=== PATIENT | female | born 1980 | race Caucasian/White ===

== ENCOUNTER 2017-07-24 16:03 | Emergency (ER) | payer MEDICAID, SELFPAY ==
[2017-07-24 16:05] VITALS: BP 130/80; PULSE 95; PULSE 99; RESP 17; TEMP 37.1; O2SAT 99; BMI 30.8
--- NOTE | 2017-07-24 16:24 | CT_ITS ---
STUDY: CT SOFT TISSUE NECK WITH CONTRAST REASON FOR EXAM: Female, 37 years old. Sore throat RADIATION DOSAGE (If Supplied By Facility): CTDIvol = ( 19.46 ) mGy, DLP = ( 578.38 ) mGycm TECHNIQUE: The patient was scanned in a multi-detector CT scanner. High resolution transaxial imaging was performed following intravenous administration of 100 ml of Isovue 300 contrast material. Sagittal and coronal images were reconstructed. Individualized dose optimization techniques were used for this CT. COMPARISON: None. FINDINGS: There is scarring noted in the lung apices. There is no cervical lymphadenopathy. There is no fluid collection. The parotid glands, submandibular glands and sublingual glands are normal in appearance. The mastoid air cells are clear. The paranasal sinuses are well aerated. The visualized intracranial structures are within normal limits. There are no destructive osseous lesions. CT/Soft Tissue Neck WITH Contrast IMPRESSION: Biapical scarring in the lungs. Unremarkable contrast-enhanced CT of the neck. Electronically Signed: Manolo Xavier, at 17:33 EDT Tel , Service support ,
--- NOTE | 2017-07-24 16:27 | ED.DCSUM_ITS ---
- ER Visit Summary Date of Service: 07/24/17 Chief Complaint: Sore throat History of Present Illness: The patient is a 37 F presenting with sore throat. Patient states this has been ongoing for over a week. She has been to urgent care twice. She states they did a rapid strep both times which were negative. Today they sent her to the ED for further evaluation. She denies fever. She has painful and difficulty swallowing. She states that this has progressively worsened. She denies other complaints. Physical Examination: Vitals are stable. Patient is afebrile. Alert no acute distress. HEENT exam pharyngeal erythema with no exudate, uvula midline Neck is supple. Lungs are clear and equal bilaterally. Heart is regular rate and rhythm. Extremities are unremarkable. Skin is warm and dry. No rash No focal neurologic deficit. Remainder of exam is unremarkable. Emergency Department Course and Treatment: Patient given Decadron, Toradol with improvement. CT soft tissue neck shows unremarkable contrast-enhanced CT of the neck. Patient feels much improved following medication. Advised to continue NSAIDs at home. Advised to follow-up with primary care physician. Advised return to ED for worsening complaints. Disposition: Discharged home Impression: Pharyngitis This note was generated with [facility] dictation software. It may contain incorrect words, spelling, and punctuation that were not noted in review of the chart prior to signing ED Disposition - Plan for ED Patient: Chief Complaint: Sore Throat Referrals: Leonardo Grover MD [Primary Care Provider] -
[2017-07-24] MEDS: Ketorolac 30 MG/ML Syringe IV (16:37)
--- NOTE | 2017-07-24 17:46 | ED.DEP ---
ED Disposition - Plan for ED Patient: Chief Complaint: Sore Throat Instructions: ED Pharyngitis Viral Referrals: Leonardo Grover MD [Primary Care Provider] -
[2017-07-24 18:00] VITALS: BP 129/80; PULSE 64; RESP 18; O2SAT 100
== END 2017-07-24 18:01 | disposition home or self-care (01) ==
LOC: ED 17:37
PROVIDERS: Emergency Provider Emergency Medicine; Family Provider Family Medicine; PCP Family Medicine
DX: J02.9 Acute pharyngitis, unspecified (principal); Z72.0 Tobacco use
CPT/HCPCS: 70491; 96374; 99283; Q9967; A4216

== ENCOUNTER → 2017-11-04 09:36 | Outpatient (CLI) | payer MEDICAID, SELFPAY ==
[2017-11-04 16:03] LABS: Chlamydia Trachomatis by PCR Negative (Negative); Neisserai gonorrhoeae by PCR Negative (Negative); Probe Check PASS; Sample Adequacy Control PASS; Specimen Processing Control PASS
[2017-11-09 15:50] LABS: HPV Reflexed? NOT INDICATED
== END ==
PROVIDERS: Visit Provider Obstetrics & Gynecology
DX: Z12.4 Encounter for screening for malignant neoplasm of cervix (principal); Z12.72 Encounter for screening for malignant neoplasm of vagina; Z11.3 Encounter for screening for infections with a predominantly sexual mode of transmission
CPT/HCPCS: 87491; 87591; 88175; G0145

== ENCOUNTER 2018-05-25 12:43 | Emergency (ER) | payer MEDICAID, SELFPAY ==
[2018-05-25 12:44] VITALS: BP 127/71; PULSE 94; RESP 16; TEMP 36.1; O2SAT 99; BMI 32.1
[2018-05-25 12:53] VITALS: BP 129/97; PULSE 107; RESP 14; O2SAT 95
--- NOTE | 2018-05-25 12:53 | VDLE_ITS ---
Reason For Study: LEG PAIN RIGHT LEFT GSV is normal. CFV is compressible, spontaneous, phasic, CFV is compressible, spontaneous, phasic, competent, and demonstrates normal competent and demonstrates normal augmentation. augmentation. FV is compressible, spontaneous, phasic, competent and demonstrates normal augmentation. POP V is compressible, spontaneous, phasic, competent and demonstrates normal augmentation. T/P Trunk is compressible. PTV is compressible. RT PerV is compressible. Procedure Exam performed portable in ED. A preliminary report was called and/or faxed to Dr. Acevedo. Interpretation Summary Deep veins of the right lower extremity are patent and compressible segmentally. There is no evidence of right lower extremity deep vein thrombosis. Valvular competence appears intact within the proximal deep venous system on the right . The right greater saphenous vein appears patent and compressible segmentally. Ordering Physician: Erich Kaur Referring Physician: MD Davion Groverery Performed By: Christy Chavarria RVT
--- NOTE | 2018-05-25 13:03 | ED.DCSUM_ITS ---
- ER Visit Summary Date of Service: 05/25/18 Chief Complaint: Right calf pain History of Present Illness: The patient is a 37 F who started on oral control pill in April and smoke cigarettes presents with 1 day of right calf cramping. No swelling or redness. No history of DVT. No recent travel or immobilization. No associated shortness of breath or chest pain. Physical Examination: Mild tenderness right calf posteriorly but no swelling. Overlying skin looks normal. Strong distal pulse. No palpable cords. Test Results: Right leg duplex ultrasound negative Emergency Department Course and Treatment: No evidence of DVT. No evidence of infection. Treatment Plan: Follow up as needed Disposition: Home stable Impression: Initial encounter right leg cramp uncertain etiology This note was generated with [employer] dictation software. It may contain incorrect words, spelling, and punctuation that were not noted in review of the chart miley or to signing ED Disposition - Plan for ED Patient: Instructions: ED Muscle Pain Leg Cramps Referrals: Leonardo Grover MD [Primary Care Provider] -
[2018-05-25 14:33] VITALS: PULSE 97; RESP 14; O2SAT 99
== END 2018-05-25 14:33 | disposition home or self-care (01) ==
LOC: ED 13:33
PROVIDERS: Emergency Provider Emergency Medicine; Family Provider Family Medicine; PCP Family Medicine
DX: R25.2 Cramp and spasm (principal); Z72.0 Tobacco use
CPT/HCPCS: 93971; 99282

== ENCOUNTER → 2019-03-06 15:29 | Outpatient (CLI) | payer MEDICAID, SELFPAY | PROVIDERS: Family Provider Family Medicine; PCP Family Medicine; Referring Provider Otolaryngology Otolaryngology/Facial Plastic Surgery; Visit Provider Otolaryngology Otolaryngology/Facial Plastic Surgery | DX: J02.9 Acute pharyngitis, unspecified (principal) | CPT/HCPCS: 87070 ==

== ENCOUNTER → 2021-02-13 12:55 | Outpatient (CLI) | payer MEDICAID, SELFPAY ==
[2021-02-13 13:56] LABS: Hematocrit 42.5 % (37-47); Hemoglobin 14.5 g/dL (12.0-15.0); Mean Corp Hgb Conc 34.1 g/dL (32-36); Mean Corpuscular Hgb 31.3 pg (27.0-32.0); Mean Corpuscular Volume 91.8 fL (81-99); Mean Platelet Vol. 10.2 fl (6.2-12.0); Platelet Count 269 K/mm3 (150-450); RBC Distribution Width CV 12.4 % (11.6-14.6); RBC Distribution Width SD 41.8 fl (35.1-43.9); Red Blood Count 4.63 M/mm3 (4.2-5.4); White Blood Count 8.5 K/mm3 (4.4-11.0)
[2021-02-13 14:38] LABS: Estradiol 189.5 pg/mL; Follicle Stimulating Hormone 6.5 mIU/mL; Luteinizing Hormone 15.4 mIU/mL; Prolactin 7.4 ng/mL
[2021-02-17 22:06] LABS: Chlamydia By Nucleic Acid AMP Negative (Negative)
[2021-02-18 12:04] LABS: Testosterone Free 4.2 pg/mL (0.0-4.2)
[2021-02-18 16:36] LABS: HPV APTIMA, High Risk Negative (Negative)
[2021-02-18 19:22] LABS: 17-Hydroxyprogesterone 58 ng/dL (.)
[2021-02-19 12:10] LABS: Gonococcus By Nucleic Acid AMP Negative (Negative)
== END ==
PROVIDERS: PCP Family Medicine; Visit Provider Obstetrics & Gynecology
DX: N93.9 Abnormal uterine and vaginal bleeding, unspecified (principal); Z12.4 Encounter for screening for malignant neoplasm of cervix; Z11.3 Encounter for screening for infections with a predominantly sexual mode of transmission
CPT/HCPCS: 82627; 82670; 83001; 83002; 83498; 84146; 84402; 84443; 85027; 87491; 87591; 87624; 88175; 82626; G0145

== ENCOUNTER → 2021-03-10 | Outpatient (CLI) | payer MEDICAID, SELFPAY ==
--- NOTE | 2021-03-10 11:30 | EMB_PTH ---
PATIENT: SHIRA BAZAN LOC: [facility] U#:[id number] AGE/SX: 40/F ROOM: RE03/10/[address]: Dr. Eitan Hutchinson MD : 1980 BED: DIS: 03/10/2021 SPEC #: [id number] RECD: 03/10/21 13:22 STATUS: CHRISTINE SENA #: [id number] DARREN: 03/10/21 11:[address]: Eitan Hutchinson DEPT: SURGICAL PATHOLOGY RECD BY: Vivian Johnson ENTERED: 03/10/21 13:39 SP TYPE: ENDOM BX/C JOCELIN DR: Dr. Leonardo Grover MD Tissues: Endometrium, NOS Procedures: Surgery Specimen Level IV HEADER OPERATION: Endometrial biopsy PRE-OP DIAGNOSIS: N39.9 TISSUE SUBMITTED: Endometrium MICROSCOPIC DIAGNOSIS Endometrial biopsy: Proliferative endometrium. See comment. PETER:bridger 03/11/2021 COMMENT Clinical correlation and appropriate follow up are necessary. MICROSCOPIC DESCRIPTION Slides are reviewed. GROSS DESCRIPTION Received in fixative is one container labeled with the patient's name and designated EMB. The specimen consists of multiple irregular fragments of south-pink soft tissue that in aggregate measure 1.5 x 1 x 0.1 cm. The specimen is totally submitted in one cassette. / SJ:bridger 03/10/21 TC:4 CPT: 63324
== END | disposition home or self-care (01) ==
LOC: LABSPEC 13:18
PROVIDERS: PCP Family Medicine; Visit Provider Obstetrics & Gynecology
DX: N39.9 Disorder of urinary system, unspecified (principal)
CPT/HCPCS: 88305

== ENCOUNTER → 2022-05-18 | Outpatient (CLI) | payer MEDICAID, SELFPAY ==
--- NOTE | 2022-05-18 15:09 | BI_ITS ---
MAMMOGRAPHY - BILATERAL SCREENING REASON FOR EXAM: Female, 41 years old. Routine annual screening examination. PERTINENT HISTORY: Non-contributory. TECHNIQUE: Digital bilateral breast rina (3D mammographic acquisition) in the CC and MLO projections. 2-D mediolateral oblique (MLO) and craniocaudad (CC) views of both breasts were obtained. CAD: Full Field Digital Mammography with Computer Added Detection was performed. COMPARISON: Comparison is made with prior abdomen examination dated 12/14/2019. FINDINGS: Breast Composition: There are scattered areas of fibroglandular density. There are no dominant masses or suspicious calcifications. Stable asymmetric breast tissue with more breast tissue is seen in the right breast as compared to the left side. Stable small benign-appearing bilateral axillary lymph nodes. No other significant abnormalities are identified. There has been no significant change since the prior study. BI/SCRN MAMM (CAD)W/RINA BILAT IMPRESSION: Stable bilateral screening mammogram. Yearly follow-up mammogram recommended. (A) ASSESSMENT CATEGORY: BIRADS Category 2: Benign. A letter regarding these results will be sent to the patient by the facility within 30 days. Approximately 10% of breast cancers are not detected by mammography. A normal mammogram should not delay biopsy of a clinically suspicious abnormality. [id number] Electronically Signed: Colin Jeronimo MD at 15:52 EST ,
== END | disposition home or self-care (01) ==
LOC: OPBI 15:08
PROVIDERS: PCP Family Medicine; Visit Provider Obstetrics & Gynecology
DX: Z12.31 Encounter for screening mammogram for malignant neoplasm of breast (principal)
CPT/HCPCS: 77063; 77067

== ENCOUNTER 2024-09-10 11:35 | Emergency (ER) | payer SELFPAY ==
[2024-09-10 11:36] VITALS: BP 133/101; PULSE 86; RESP 17; TEMP 36.2; O2SAT 99; BMI 32.4
--- NOTE | 2024-09-10 12:42 | EX.ED.UPPERE ---
HPI <IVA Galaviz - Last Filed: 09/10/24 13:13> History of Present Illness Chief Complaint: Upper Extremity Injury Narrative Narrative: Patient presenting today with pain to her right thumb that she has had over the last several days. She reports that she developed a discoloration vertically through the middle of her nail which concerned her, she went to urgent care yesterday and was placed on a course of doxycycline. She reports that she was continue to have pain/pressure to her fingernail prompting her to come in for evaluation. She denies any fevers or chills, she reports that she feels well otherwise. [facility] <IVA Galaviz - Last Filed: 09/10/24 13:13> [facility] Medical History no medical history Home Medications ?Medication ?Instructions ?Recorded ?Last Taken ?Type Control 1 tab PO DAILY 05/25/18 05/25/18 History Allergy/AdvReac Type Severity Reaction Status Date / Time No Known Allergies Allergy Verified 09/10/24 11:36 Family History no significant family his Surgical History no surgical history Social History Smoking Status: Current every day smoker tobacco type: cigarettes ROS <IVA Galaviz - Last Filed: 09/10/24 13:13> ROS ED Constitutional Constitutional ED: Denies chills or fever(s) Cardiovascular Cardiovascular: Denies chest pain Respiratory/Chest Respiratory/Chest: Denies dyspnea Gastrointestinal Gastrointestinal: Denies abdominal pain, nausea or vomiting Musculoskeletal Musculoskeletal: Reports other Details: Right thumb pain Integumentary Denies Abrasions or rash Neurologic Neurologic: Denies weakness EXAM <IVA Galaviz Last Filed: 09/10/24 13:13> Physical Exam Const Vital Signs: 09/10/24 11:36 Temperature 97.1 F L Temperature Source Temporal Pulse Rate 86 Respiratory Rate 17 Blood Pressure 133/101 H Blood Pressure Mean 111 Pulse Ox 99 Oxygen Delivery Method Room Air Positive well nourished, well developed and no apparent distress General Appearance ED: well developed HEENT Reports normocephalic and head/scalp atraumatic Mouth ED: Yes moist mucous membranes normal Eyes PERRL and EOMs intact bilaterally Neck full ROM and supple Chest Wall inspection of chest normal Resp normal respiratory effort and clear to auscultation bilaterally Cardio regular rate and regular rhythm Back/Spine normal ROM Extremity full ROM Extremity Narrative: Right thumb nail with a vertical discoloration, the nail is tender to palpation, no surrounding erythema to the fingernail, she has full range of motion to her thumb, no warmth or discharge. Right upper extremity neurovascularly intact. Neuro moves all extremities, no focal motor deficits and no sensory deficits noted Sensorium / Orientation: awake and alert Psych mental status grossly normal and thought process normal Skin no rashes or lesions noted and no wounds [facility] <IVA Galaviz - Last Filed: 09/10/24 13:13> [facility] Narrative Medical decision making narrative: Patient presenting today due to pain/pressure to her right thumb fingernail that has been ongoing over the last several days. She noticed a vertical discoloration through her nail a few days ago, she went to urgent care Wednesday and was placed on doxycycline. The pressure has worsened, prompting her to come in to be seen. She does not have any erythema surrounding her fingernail to suggest an obvious paronychia, she does have a vertical discoloration that is light in color. I did trephinate her fingernail in 2 places along with discoloration with an 18-gauge needle after cleansing the fingernail with alcohol, purulent discharge was expelled. I suspect she had a early paronychia. 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 I recommended that she no longer submerge her thumb in any dirty water and wear gloves. I also recommended that she begin warm water soaks to her thumb several times daily over the next several days, she can continue her antibiotics, recommended she follow-up closely with her PCP. Return instructions discussed and patient discharged home in stable condition. <Dr. Esperanza Gu DO - Last Filed: 09/13/24 16:09> [facility] Narrative Medical decision making narrative: Patient presenting today due to pain/pressure to her right thumb fingernail that has been ongoing over the last several days. She noticed a vertical discoloration through her nail a few days ago, she went to urgent care Wednesday and was placed on doxycycline. The pressure has worsened, prompting her to come in to be seen. She does not have any erythema surrounding her fingernail to suggest an obvious paronychia, she does have a vertical discoloration that is light in color. I did trephinate her fingernail in 2 places along with discoloration with an 18-gauge needle after cleansing the fingernail with alcohol, purulent discharge was expelled. I suspect she had a early paronychia. 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 I recommended that she no longer submerge her thumb in any dirty water and wear gloves. I also recommended that she begin warm water soaks to her thumb several times daily over the next several days, she can continue her antibiotics, recommended she follow-up closely with her PCP. Return instructions discussed and patient discharged home in stable condition. I have personally performed a face to face assessment of the patient and have reviewed the MARK Note. I performed a substantive portion of the visit including all aspects of the following. My moses findings include: History is patient is a 44-year-old female presenting with worsening atraumatic right fingernail pain over her thumb. She has discoloration that runs the length of her finger nail in the middle. She was seen at urgent care and started on doxycycline. She started to have more pain at the base of her nail and closer to our interphalangeal joint now. Range of motion is preserved but is very become painful. 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 Denies any systemic symptoms including fever or chills. States she is otherwise feeling well. Describes the pain more as throbbing and pressure. On exam patient has normal range of motion of the thumb. No erythema or pain at the joint. There is some very minor erythema at the base of the nail. There is mild white discoloration at the proximal nail and vertical stripe riding distally through the middle of the nail. Suspect she has paronychia with more of the purulence underneath the nail instead of in the nail fold. At this time I do not think she needs to have the nail removed. I do not think x-ray is indicated as she is not any trauma. Fingernail is trephinated with purulent discharge expelled. Patient has improvement of symptoms. Counseled on continued warm soaks to the fingernail. Will continue antibiotics. Hopeful that now that she has had source control with a trephination it will heal with antibiotics and soaks as well. Given return precautions. Discharged home in stable condition. Other additions or changes: [None] Discharge Plan Triage Chief Complaint: Upper Extremity Injury ED Midlevel Provider: Janis Jaffe ED Provider: Esperanza Gu Dx/Rx/DC Orders Clinical Impression: Paronychia Instructions: ED Paronychia of the Finger or Toe Prescriptions: No Action Control 1 tab PO DAILY Primary Care Provider: Noah Torres Referrals: Noah Torres MD [Primary Care Provider] - 5-7 Days Activity Restrictions/Additional Instructions: Return for any worsening symptoms, soak your thumb multiple times daily in warm water. Print Language: Wolof Disposition Disposition: Home, Self Care Discharge Date/Time: 09/10/24 13:32
[2024-09-10 13:31] VITALS: BP 117/82; PULSE 79; RESP 16; TEMP 36.2; O2SAT 100
== END 2024-09-10 13:32 | disposition home or self-care (01) ==
PROVIDERS: Emergency Provider Emergency Medicine; PCP Family Medicine; Visit Provider Emergency Medicine
DX: L03.011 Cellulitis of right finger (principal); F17.290 Nicotine dependence, other tobacco product, uncomplicated
CPT/HCPCS: 10060; 99282; A4216

== ENCOUNTER 2024-09-14 04:38 | Emergency (ER) | payer SELFPAY ==
[2024-09-14 04:39] VITALS: BP 137/86; PULSE 84; RESP 16; TEMP 36.8; O2SAT 100; BMI 32.9
[2024-09-14 04:42] VITALS: BP 137/86; PULSE 85; RESP 16; TEMP 36.8; O2SAT 100
[2024-09-14] MEDS: oxyCODONE 5 MG Tablet PO (05:07)
[2024-09-14] MEDS: Clindamycin HCl 150 MG Capsule 300 MG PO (05:07)
--- NOTE | 2024-09-14 05:10 | RAD_ITS ---
PROCEDURE: HAND MIN 3 VIEWS 09/14/2024 REASON FOR EXAM: ? OSTEOMYELITIS OF THUMB TECHNIQUE: 3 view(s) of the right hand COMPARISON: None available FINDINGS: No fracture or dislocation. The joint spaces appear within limits. No osseous destruction, sclerosis or periosteal reaction identified. No radiopaque foreign body seen. The soft tissues appear within limits. RAD/Hand Min 3 Views IMPRESSION: Study appears within limits. Reading Location: [id number]
--- NOTE | 2024-09-14 05:21 | EDS_ITS ---
HPI History of Present Illness Chief Complaint: Other, Pain/Inj Informant: patient Narrative Narrative: Patient is a 44-year-old female who reports no significant past medical history. She states that she was having pain in her right thumb for almost 2 weeks with no known injury. She states then she noticed a line underneath her nail that appeared pus-like. With concern for an infection causing her pain she presented to the ER. At that time she underwent needle decompression and was placed on doxycycline. She states she was initially doing better but over the last few days despite taking her antibiotics she is now has redness and swelling to the thumb. She states there has been no repeat injury. She denies any fevers or chills or history of immunosuppression. She states she had blood work done by her family doctor just yesterday. She states that despite using antibiotics the fact that she is having worsening pain and redness she is concerned for persistent infection and therefore comes in for evaluation [facility] Home Medications ?Medication ?Instructions ?Recorded ?Last Taken ?Type Control 1 tab PO DAILY 05/25/18 02/0 10/05 History clindamycin HCl 300 mg capsule 300 mg PO 4X/DAY 10 day s #40 09/14/24 Unknown Rx (Cleocin HCl) CAPSULES doxycycline hyclate 100 mg tablet 100 mg PO BID Unknown History oxycodone-acetaminophen 5 mg-325 1 tab PO Q6H PRN pain 3 days #12 09/14/24 Unknown Rx mg tablet (Percocet) tabs Allergy/AdvReac Type Severity Reaction Status Date / Time No Known Allergies Allergy Verified 09/14/24 04:39 Family History no significant family his Surgical History Hx of cholecystectomy Social History Smoking Status: Current every day smoker tobacco type: cigarettes ROS ROS ED Constitutional Constitutional ED: Denies chills or fever(s) ENT ENT ED: Denies sore throat Cardiovascular Cardiovascular: Denies chest pain Respiratory/Chest Respiratory/Chest: Denies cough or dyspnea Gastrointestinal Gastrointestinal: Denies abdominal pain, diarrhea, nausea or vomiting Genitourinary Genitourinary ED: Denies dysuria Musculoskeletal Musculoskeletal: Reports other Details: Positive right thumb pain/swelling Integumentary Reports other Details: Positive redness right thumb Neurologic Neurologic: Denies headache(s) Hematologic/Lymphatic Hematologic/Lymphatic: Denies easy bleeding or easy bruising EXAM Physical Exam Const Vital Signs: 09/14/24 04:39 09/14/24 04:39 09/14/24 04:42 Temperature 98.3 F 98.3 F Temperature Source Oral Oral Pulse Rate 84 85 Respiratory Rate 16 16 Respiratory Effort Normal Respiratory Pattern Normal Blood Pressure 137/86 H 137/86 H Blood Pressure Mean 103 103 Pulse Ox 100 100 Oxygen Delivery Method Room Air Room Air 09/14/24 05:25 Temperature 98.3 F Temperature Source Pulse Rate 85 Respiratory Rate 16 Respiratory Effort Respiratory Pattern Blood Pressure 126/84 H Blood Pressure Mean 98 Pulse Ox 98 Oxygen Delivery Method Positive well nourished and well developed General Appearance ED: well developed HEENT HEENT Narrative: Normocephalic atraumatic Eyes PERRL and EOMs intact bilaterally General Eye ED: Negative for scleral icterus Neck supple Resp normal respiratory effort and clear to auscultation bilaterally Cardio regular rate and regular rhythm Extremity Extremity Narrative: Right upper extremity is neurovascularly intact; AIN/PIN are intact and normal Patient has 2 trephination holes in the right thumb nail consistent with previous history of decompression. There is no remaining purulent material or subungual hematoma. The distal phalanx of the right thumb is slightly swollen compared to the left with asymmetric erythema and warmth. However there is no lymphangitic streaking. No Knievel signs to indicate infectious tenosynovitis. The finger pad is soft and compressible going against felon. No crepitance palpated Remainder of the exam is normal Neuro oriented x3, CN's II-XII intact bilaterally and no sensory deficits noted Sensorium / Orientation: alert Motor Exam: strength 5/5 throughout Psych mental status grossly normal Skin Skin Narrative: Soft tissue changes to the right thumb as documented above MDM MDM MDM Narrative Medical decision making narrative: Patient arrived to the ER with stable vitals. She reported increasing redness and pain to the right thumb without any repeat trauma and states she has been taking her antibiotics as directed. There is concern for secondary infection such as cellulitis versus felon versus osteomyelitis. I discussed with patient obtaining laboratory values to check for signs of systemic infection. However she had blood work done just the other day and I was able to review this on her MyChart. Her white count is only slightly elevated at 11.59 and her absolute neutrophil count is only slightly elevated at 8.1. These were not clinically significant elevations. By exam there is no diffuse swelling or tautness of the finger pad going against a felon. In order to rule out a potential retained foreign body or osteomyelitis an x-ray was obtained. This revealed no acute findings. Based on her history and exam I do feel that she is developing a secondary cellulitis that is most likely resistant to the doxycycline she is currently on. Therefore the doxycycline will be discontinued and patient will be transition to clindamycin. At this time however as her vitals are stable her x-ray does not reveal foreign body or signs of osteomyelitis or free air and her recent outpatient laboratory study did not reveal any clinically significant changes I do not believe there is need for further workup in the ER at this time. This plan of care was discussed with the patient who is agreeable to it and therefore should be discharged for continued evaluation as an outpatient History & Record Review Discussion w/independent historian: Patient Radiography Diagnostic Testing: Clinical Impression(s) from Imaging Studies Hand X-Ray 09/14/24 05:10 IMPRESSION: Study appears within limits. Reading Location: [facility] Right hand x-ray as interpreted by the emergency medicine physician reveals no acute fracture dislocation retained foreign body or signs of osteomyelitis Discharge Plan Triage Chief Complaint: Other, Pain/Inj ED Provider: Asad Paz Dx/Rx/DC Orders Clinical Impression: Paronychia, Cellulitis of right thumb Instructions: ED Cellulitis, ED Paronychia of the Finger or Toe Prescriptions: New oxycodone-acetaminophen [Percocet] 5-325 mg tablet 1 tab PO Q6H PRN (Reason: pain) 3 Days Qty: 12 0RF clindamycin HCl [Cleocin HCl] 300 mg capsule 300 mg PO 4X/DAY 10 Days Qty: 40 0RF No Action Control 1 tab PO DAILY doxycycline hyclate 100 mg tablet 100 mg PO BID Primary Care Provider: Noah Torres Referrals: Noah Torres MD [Primary Care Provider] - Activity Restrictions/Additional Instructions: Your x-ray does not show any signs of bone infection and your exam indicates you now have cellulitis which is a soft tissue skin infection and this is most likely because the bacteria is resistant to the doxycycline. Therefore please stop the doxycycline and begin taking the clindamycin. Will typically take 2 to 3 days to notice symptom improvement. If you spike a fever or notice streaking down the hand towards the arm or have any further concerns please return to the ER for repeat evaluation Print Language: Maori Disposition Disposition: Home, Self Care Discharge Date/Time: 09/14/24 05:29
[2024-09-14 05:25] VITALS: BP 126/84; PULSE 85; RESP 16; TEMP 36.8; O2SAT 98
== END 2024-09-14 05:29 | disposition home or self-care (01) ==
PROVIDERS: Emergency Provider Emergency Medicine; PCP Family Medicine; Visit Provider Emergency Medicine
DX: L03.011 Cellulitis of right finger (principal); F17.210 Nicotine dependence, cigarettes, uncomplicated; Z16.29 Resistance to other single specified antibiotic; Z98.890 Other specified postprocedural states
CPT/HCPCS: 73130; 99283

== ENCOUNTER 2025-03-31 13:32 | Emergency (ER) | payer SELFPAY ==
[2025-03-31 13:33] VITALS: BP 121/86; PULSE 86; RESP 16; TEMP 36.6; O2SAT 99; BMI 32.1
--- NOTE | 2025-03-31 13:45 | EX.ED.DYSGE1 ---
HPI History of Present Illness Chief Complaint: Dental PFSH PFS Home Medications ?Medication ?Instructions ?Recorded ?Last Taken ?Type Control 1 tab PO DAILY 05/25/18 05/25/18 History clindamycin HCl 300 mg capsule 300 mg PO 4X/DAY 10 days #40 09/14/24 Unknown Rx (Cleocin HCl) CAPSULES doxycycline hyclate 100 mg tablet 100 mg PO BID 09/14/24 Unknown History oxycodone-acetaminophen 5 mg-325 1 tab PO Q6H PRN pain 3 days #12 09/14/24 Unknown Rx mg tablet (Percocet) tabs Allergy/AdvReac Type Severity Reaction Status Date / Time No Known Allergies Allergy Verified 03/31/25 13:33 Surgical History Hx of cholecystectomy Social History Smoking Status: Current every day smoker tobacco type: cigarettes EXAM Physical Exam Const Vital Signs: 03/31/25 13:33 Temperature 97.8 F Temperature Source Oral Pulse Rate 86 Respiratory Rate 16 Blood Pressure 121/86 H Blood Pressure Mean 97 Pulse Ox 99 Oxygen Delivery Method Room Air [facility] MDM Narrative Medical decision making narrative: HISTORY OF PRESENT ILLNESS: 44-year-old female presents with right-sided dental pain. Started 1 month ago. No she is on amoxicillin approximately 1 week ago. She notes symptoms did not get better. Denies trouble swallowing, change in vision, numbness weakness or fullness in her submandibular area. REVIEW OF SYSTEMS: Pertinent positives: Dental pain Pertinent negatives: Fever, loss of vision, double vision, slurred speech, difficulty swallowing PHYSICAL EXAM: Nursing triage notes reviewed, Vital signs reviewed Constitutional: please see mdm HENT: MMM, no evidence of dental abscess, no submandibular edema or induration, no tonsillar exudates or erythema, uvula midline, patient was controlling secretions, no drooling, no trimus, no dysphonia Eyes: Pupils equal round and reactive to light, Extraocular muscles intact Neck: No stridor, no JVD, full neck ROM Lungs: Clear to auscultation, No wheezing or rales. No increased work of breathing, no conversational dyspnea, no accessory muscle use, no nasal flaring. No respiratory distress noted Heart: Regular rate and rhythm, No murmurs, No rubs and No gallops, 2+ distal pulses (radial, femoral, posterior tibial) in all extremities MEDICAL DECISION MAKING: Chief Complaint: Dental pain External records reviewed: Reviewed prior ED visits Factors affecting care: None Social determinants of health: None [facility] Narrative: The patient was hemodynamically stable, afebrile, nontoxic-appearing. Exam consistent with dental caries. 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 I considered the following differential diagnosis: Dental abscess, ANUG, Ludewig's angina, RPA, LICENSED PSYCHOLOGIST DIRECTOR, dental caries, gingivitis Gave clindamycin here. In for home-going. Given dentistry follow-up recommended. Dental resources provided Shared decision making: I will have a discussion with the patient and or visitors regarding risk/benefits of further testing or admission. They will be made aware of of the risk/benefits inherent in this decision they will be given the opportunity to voice understanding. Impression: 1. Acute dental pain 2. Dental care Disposition: Discharge This note was generated with [employer] dictation software. It may contain incorrect words, spelling, and punctuation that were not noted in review of the chart prior to signing. Discharge Plan Triage Chief Complaint: Dental ED Provider: Dannie Garcia Dx/Rx/DC Orders Prescriptions: No Action Control 1 tab PO DAILY doxycycline hyclate 100 mg tablet 100 mg PO BID oxycodone-acetaminophen [Percocet] 5-325 mg tablet 1 tab PO Q6H PRN (Reason: pain) 3 Days Qty: 12 0RF clindamycin HCl [Cleocin HCl] 300 mg capsule 300 mg PO 4X/DAY 10 Days Qty: 40 0RF Primary Care Provider: Noah Torres Referrals: Noah Torres MD [Primary Care Provider, Family Practice] Print Language: Occitan
--- OUTSIDE RECORDS SUMMARY | 2025-03-31 13:58 | XMS RPT_ITS | CCD ---
Author Organization [facility] ion Partnership [facility] Care Team Providers Care Senior Automation Engineer Name Role Phone Stephanie Flores LPN Unavailable Unavailable Urbano ENRIQUE, Fabian Mark Unavailable Mercy Torres MD Primary Care Provider Mercy Torres MD Primary Care Provider Mercy Torres MD Primary Care Provider Mercy Torres MD Primary Care Provider Mercy Torres MD Primary Care Provider Podlogar INSURANCE COUNSELOR.Omaira FERRELL Unavailable Dr. Noah Torres MD Primary Care Provider Dr. Esperanza Gu DO Emergency Provider Dr. Esperanza Gu DO Attending Provider Dr. Asad Paz DO Emergency Provider Asad Paz Attending Unavailable Noah Torres Primary Care Unavailable Noah Torres Primary Care Unavailable Esperanza Gu Attending Unavailable Niranjan INSURANCE COUNSELOR.Mare FERRELL Unavailable [facility] T[facility]RES Primary Care Unavailab le SELF Referring Unavailable ISSA CHAPIN Attending Unavailable ESTER GRAY Attending Unavail able [facility] T[facility]RES Primary Care Unavailab le [facility] TORRES Primary Care Unavailab NEEMA Morton Attending Unavailable GISEL KELLER Referring Unavailable [facility] TORRES Primary Care Unavailab le MERCY TORRES Primary Care Unavailab NEEMA Morton Attending Unavailable MERCY TORRES Primary Care Unavailab MERCY Guy Primary Care Unavailab NEEMA Morton Attending Unavailable MER[facility] TORRES Primary Care Unavailab QIANA Conrad Referring Unavailable [facility] TORRES Primary Care Unavailab GISEL Umaña Attending Unavailable SELF Referring Unavailable MER[facility] TORRES Primary Care Unavailab MERCY Guy Attending Unavailab MERCY Guy Primary Care Unavailab MERCY Guy Referring Unavailab le SELF Referring Unavailable MERCY TORRES Primary Care Unavailab ESSENCE Acuna Attending Unavailable MERCY TORRES Primary Care Unavailab MERCY Guy Attending Unavailab MERCY Guy Primary Care Unavailab ESSENCE Acuna Attending Unavailable Medications Current Medications Medication Drug Class(es) Dates Sig (Normalized) Sig (Original) acetaminophen 325 mg oral capsule (18 sources) End: 09-13-2024 acetaminophen 325 mg cap Take by mouth. 09/13/2024 Discontinued (Course of therapy completed) Comment on above: Take by mouth. acetaminophen 325 mg / oxyCODONE hydrochloride 5 mg oral tablet (1 source) Opioid Agonist Start: 09-14-2024 take 1 tablet by mouth every six hours as needed for pain Oxycodone-Acetamino phen (Percocet) 5-325 mg tablet Active 1 {tbl} PO EVERY 6 HOURS as needed for pain 12 September 14, 2024 Start: 09-14-2024 take 1 tablet by song th every six hours as needed for pain Oxycodone-Acetaminophen (Percocet) 5-325 mg tablet Active 1 {tbl} PO EVERY 6 HOURS as needed for pain 12 September 14, 2024 Control (3 sources) Start: 05-25-2018 Control Active 1 {tbl} PO DAILY May 25, 2018 1:00am Start: 05-25-2018 take 1 tablet by mouth once da oscar Control Active 1 TABLET PO DAILY May 25, 2018 12:00am clindamycin 300 mg oral capsule (3 sources) Lincosamide Antibacterial Start: 09-14-2024 End: 09-25-2024 take 1 capsule by mouth four times daily Clindamycin Hcl (Cleocin Hcl) 300 mg capsule Active 300 mg PO 4 TIMES DAILY 40 September 14, 2024 12:00am doxycycline hyclate 100 mg oral capsule (10 sources) Tetracycline-class Drug Start: 09-13-2024 End: 09-16-2024 take 1 capsule by mouth twice daily doxycycline hyclate (VIBRAMYCIN) 100 mg capsule Take 1 capsule by mouth two times a day for 3 days. 6 capsule 09/13/2024 09/16/2024 Active Start: 09-08-2024 End: 09-15-2024 take 1 tablet by mouth twice daily doxycycline (VIBRA-TABS) 100 mg tablet Indications: Nail discoloration Take 1 tablet by mouth two times a day for 7 days. 14 tablet 09/08/2024 09/15/2024 Active Start: 04-10-2024 End: 04-17-2024 take 1 tablet by mouth twice daily doxycycline (VIBRA-TABS) 100 mg tablet Indications: Skin infection Take 1 tablet by mouth two times a day for 7 days. 14 tablet 04/10/2024 04/17/2024 fluticasone propionate 0.05 mg/actuat metered dose nasal spray (14 sources) Corticosteroid Start: 06-17-2023 End: 09-13-2024 take 2 spray(s) by mouth once daily fluticasone (FLONASE) 50 mcg/actuation nasal spray Indications: Acute cough Use 2 Sprays in each nostril once daily. Rinse mouth after use. 1 Each 06/17/2023 09/13/2024 Discontinued (Course of therapy completed) Start: 07-17-2019 End: 03-16-2022 take 2 spray(s) by mouth once daily fluticasone (FLONASE) 50 mcg/actuation nasal spray Indications: Acute non-recurrent sinusitis, unspecified location Use 2 Sprays in each nostril once daily. Rinse mouth after use. 1 Bottle 1 07/17/2019 03/16/2022 Discontinued Comment on above: Use 2 Sprays in each nostril once daily. Rinse mouth after use. MULTIVITAMIN ORAL (12 sources) MULTIVITAMIN ORA L Take by mouth once daily. Active MULTIVITAMIN ORA L Take by mouth. Active predniSONE 20 mg oral tablet (1 source) Start: 06-17-2023 End: 06-22-2023 take 2 tablets by mouth once daily predniSONE (DELTASONE) 20 mg tablet Indications: Acute cough Take 2 tablets by mouth once daily for 5 days. 10 tablet 0 06/17/2023 06/22/2023 Active Comment on above: Take 2 tablets by mo [facility] once daily for 5 days. Completed/Discontinued Medications Medication Drug Class(es) Dates Sig (Normalized) Sig (Original) acetaminophen 325 mg / HYDROcodone bitartrate 5 mg oral tablet (3 sources) Opioid Agonist Start: 07-10-2014 End: 07-13-2014 Hydrocodone-Acetami nophen 1 TABLET tablet Discontinued 1 - 2 {tbl} PO EVERY 4 HOURS NEEDED as needed for Pain July 10, 2014 12:00am July 13, 2014 10:35am Start: 07-10-2014 End: 07-13-2014 take 1 tablet by mouth every four hours as needed Hydrocodone-Acetaminophen Discontinued 1 - 2 TABLET PO EVERY 4 HOURS NEEDED July 09, 2014 11:00pm July 13, 2014 9:35am 5 ml bupivacaine hydrochloride 5 mg/ml injection (1 source) Amide Local Anesthetic Start: 12-03-2021 End: 12-03-2021 bupivacaine (PF) 0.5 % (5 mg/mL) 2.5 mg injection Start: 12-03-2021 End: 12-03-2021 bupivacaine (PF) 0.5 % (5 mg /mL) 2.5 mg injection 1 ml dexamethasone phosphate 4 mg/ml injection (1 source) Corticosteroid Start: 12-03-2021 End: 12-03-2021 dexAMETHasone sodium phosphate 2 mg injection (DECADRON) Start: 12-03-2021 End: 12-03-2021 dexAMETHasone sodium phospha te 2 mg injection (DECADRON) norethindrone 0.35 mg oral tablet (14 sources) Start: 06-09-2021 End: 02-08-2024 take 1 tablet by mouth once daily DEBLITANE 0.35 mg tablet Take 1 tablet by mouth once daily. 84 tablet 3 03/09/2023 01/31/2024 Discontinued Comment on above: Take 1 tablet by [facility] once daily. sulfamethoxazole 800 mg / trimethoprim 160 mg oral tablet (3 sources) Dihydrofolate Reductase Inhibitor Antibacterial, Sulfonamide Antimicrobial Start: 06-10-2023 End: 06-17-2023 take 1 tablet by mouth twice daily sulfamethoxazole-t rimethoprim (BACTRIM DS) 800-160 mg per tablet Indications: Skin infection Take 1 tablet by mouth two times a day for 7 days. 14 tablet 06/10/2023 06/17/2023 Comment on above: Take 1 tablet by song two times a day for 7 days. triamcinolone acetonide 10 mg/ml injectable suspension (1 source) Corticosteroid Start: 12-03-2021 End: 12-03-2021 triamcinolone acetonide 5 mg injection (KeNALog 10) Start: 12-03-2021 End: 12-03-2021 triamcinolone acetonide 5 mg injection (KeNALog 10) varenicline 0.5 mg oral tablet (5 sources) Partial Cholinergic Nicotinic Agonist Start: 06-20-2019 End: 03-16-2022 take 1 tablet by mouth once daily, then take 1 tablet by mouth twice daily, then take 1 tablet by mouth twice daily varenicline (CHANTIX STARTING MONTH BOX) 0.5 mg (11)- 1 mg (42) tablet Indications: Tobacco abuse counseling Take 1 tablet (0.5 mg) by mouth once daily for 3 days, then 1 tablet (0.5 mg) twice daily for 4 days, then one tablet (1 mg) twice daily. 53 tablet 0 06/20/2019 03/16/2022 Discontinued Comment on above: Take 1 tablet (0.5 m g) by mouth once daily for 3 days, then 1 tablet (0.5 mg) twice daily for 4 days, then one tablet (1 mg) twice daily. Problems Active Problems Problem Classification Problem Date Documented Da te Episodic/Chronic Immunizations and screening for infectious disease (1 source) Contact with or exposure to other viral diseases; Translations: [Exposure to confirmed case of COVID-19] Episodic Influenza (1 source) Influenza-like illness; Translations: [Influenza due to unidentified influenza virus with other respiratory manifestations] Episodic Other aftercare (1 source) Admission statuses; Translations: [Encounter for other specified aftercare] 10-25-2024 Episodic Other connective tissue disease (1 source) Plantar fasciitis; Translations: [Plantar fascial fibromatosis] Episodic Other connective tissue disease (1 source) Pain in right finger(s); Translations: [Pain in right finger(s)] Onset: 09-13-2024 Episodic Other lower respiratory disease (1 source) Cough; Translations: [Acute cough] 06-17-2023 Episodic Other nutritional; endocrine; and metabolic disorders (19 sources) Obese class I; Translations: [Obesity, unspecified] Onset: 04-02-2023 04-02-2023 Chronic Other screening for suspected conditions (not mental disorders or infectious disease) (11 sources) Patient encounter status; Translations: [Encounter for screening mammogram for malignant neoplasm of breast] Onset: 09-07-2024 Episodic Other skin disorders (1 source) Cyst of skin; Translations: [Follicular cyst of the skin and subcutaneous tissue, unspecified] 05-29-2024 Episodic Other upper respiratory infections (1 source) Acute upper respiratory infection; Translations: [Acute upper respiratory infection, unspecified] 06-17-2023 Episodic Unclassified (2 sources) Physical examination; Translations: [Encounter for general adult medical examination without abnormal findings] Onset: 03-05-2010 03-05-2010 Unclassified (1 source) Patient encounter status 09-13-2024 Unclassified (1 source) Obesity, Class I, BMI 30-34.9; Translations: [Obesity, Class I, BMI 30-34.9] Onset: 04-02-2023 Viral infection (2 sources) Viral disease; Translations: [Viral infection, unspecified] Episodic Past or Other Problems Problem Classification Problem Date Documented Da te Episodic/Chronic Mycoses (2 sources) Onychomycosis; Translations: [Tinea unguium] Onset: 09-13-2024 09-13-2024 Episodic Nonmalignant breast conditions (8 sources) Abscess of breast; Translations: [Abscess of the breast and nipple] Onset: 09-13-2024 09-13-2024 Episodic Other aftercare (1 source) Encounter for other specified aftercare; Translations: [Wound check, abscess] Onset: 10-25-2024 Episodic Other skin disorders (1 source) Other nail disorders; Translations: [Nail discoloration] Onset: 09-08-2024 Episodic Other skin disorders (1 source) Follicular cyst of the skin and subcutaneous tissue, unspecified; Translations: [Skin cyst] Onset: 05-29-2024 Episodic Residual codes; unclassified (20 sources) Tobacco user; Translations: [Tobacco use] Onset: 02-15-2014 02-15-2014 Episodic Residual codes; unclassified (1 source) Tobacco use; Translations: [Tobacco abuse] Onset: 02-15-2014 Episodic Residual codes; unclassified (1 source) Pain, unspecified; Translations: [Pain] Onset: 09-08-2024 Episodic Skin and subcutaneous tissue infections (11 sources) Infection of skin; Translations: [Local infection of the skin and subcutaneous tissue, unspecified] Onset: 04-17-2024 06-10-2023 Episodic Substance-related disorders (10 sources) Marijuana user; Translations: [Cannabis use, unspecified, uncomplicated] Onset: 09-13-2024 09-13-2024 Episodic Results Test Name Value Interpretation Reference Range Facility CNOVon 02-15-2025 CNOV Office Visit (OBGYWM ) EMMA BAZAN ([id number]) 1980 F Date Time Provider Department 02/15/25 2:30 PM ESTER GRAY OBGYWJeremy During your visit today, we recorded the following information about you: Blood pressure Weight Height Last Period 122/72 94.3 kg 1.727 m 01/25/25 Ester Gray MD 02/15/2025 2:52 PM Signed Marketing Lead offered: Patient declines. Emma is a 44 year old who presents for an annual gynecologic exam without complaints. Went to beach this summer. Still gets boils under breasts but doing better with using tea tree oil . Has some night sweats but taking Magnesium has helped. 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 LAPAROSCOPY SURG CHOLECYSTECTOMY 07/13/2014 FAMILY HISTORY Problem Relation Age of Onset Diabetes Mother Stroke Father other (ETOH) Sister No Known Problems Brother Heart Maternal Grandfather [place] Allergies Maternal Grandfather No Known Problems Daughter SOCIAL HISTORY Social History Tobacco Use Smoking status: Every Day Current packs/day: 1.00 Average packs/day: 1 pack/day for 30.6 years (30.6 ttl pk-yrs) Types: Cigarettes Start date: 07/11/1994 Smokeless tobacco: Never Vaping Use Vaping status: Never Used Substance Use Topics Alcohol use: Yes Alcohol/week: 8.0 standard drinks of alcohol Types: 8 Standard drinks or equivalent per week Drug use: Yes Types: Marijuana Comment: periodically REVIEW OF SYSTEMS Abdomen: No abdominal pain, nausea, vomiting, or constipation. Has some diarrhea after gallbladder removal. No bloating, early satiety, indigestion, or increased flatulence. Bladder: No dysuria, gross hematuria, urinary frequency, urinary urgency, or incontinence. Breast: No breast lumps, nipple d/c, overlying skin changes, redness or skin retraction. Allergies and current medication updated:Yes SENSITIVE EXAM: The sensitive examination was discussed with the Patient or Patient's Authorized Network Intelligence Analyst. As applicable, any other physician, advance practice provider, medical student, or other health professional student that will be observing or involved in the sensitive examination for educational or training purposes was discussed with the Patient or Authorized Network Intelligence Analyst. The Patient or Authorized Network Intelligence Analyst has agreed to proceed with the sensitive examination. (Sensitive examination includes inspection and/or palpation of the breasts, pelvis, prostate and anorectal regions). EXAM: BP 122/72 Ht 5' 8 (1.73m) Wt 208 lb (94.3kg) LMP 01/25/2025 BMI 31.63 kg/(m2). GENERAL: pleasant, female in no apparent distress HEENT: Normocephalic, atraumatic, mucus membranes moist, and no lesions NECK: Supple, full range of motion, no adenopathy, and thyroid normal DERMATOLOGY: Normal, without lesions, non-icteric, and non-hirsute BREAST: soft, non-tender, symmetric, no dominant mass, normal nipple-areolar complex, no lymphadenopathy, and no nipple discharge CHEST: Normal inspiratory effort ABDOMEN: soft, non-tender, and no masses PELVIC: external genitalia normal, normal Bartholin's glands, urethra, Farnham's glands, no vulvar lesions, no cervical lesions, good vaginal support, physiologic discharge present, normal appearing perineal body and perianal region BIMANUAL: uterus normal size, shape and consistency, no adnexal masses, and non-tender RECTOVAGINAL: deferred. NEURO: alert and oriented x3,exam grossly non-focal EXTREMITIES: normal ASSESSMENT/PLAN: 1) Health maintenance: Pap/HPV up to date. Mammogram starting age up to date- ordered Nutrition, exercise and routine health maintenance exams reviewed. Colon cancer screening: colonoscopy ordered 2) Contraception: condoms. Contraceptive options reviewed and information (more content not included)... Normal [facility] CNOVon 10-25-2024 CNOV Office Visit (WOUCA) EMMA BAZAN ([id number]) 1980 F Date Time Provider Department 10/25/24 9:45 AM ISSA CHAPIN WOHOLLY During your visit today, we recorded the following information about you: Temperature Pulse Respiration Blood pressure 99 degrees 95/minute 18/minute 110/76 Weight 92.8 kg Issa Chapin MD 10/25/2024 10:00 AM Addendum [facility] David Bazan is a 44 year old female. Patient presents with: Derm Problem: Previous cyst site opened up, under right breast Patient reports history of right breast abscess status post incision and drainage at the end of August. Has been healing without incident until last night she noticed a spot that looked like it was opening up. There is slight burning/sharp pain associated with the opening. She denies any swelling, deeper pain or fluctuance, drainage, fever, malaise. She has applied gauze without any other treatment. Review of Systems Objective BP 110/76 Pulse 95 Temp 37.2 ?C (99 ?F) Resp 18 Wt 92.8 kg (204 lb 9.4 oz) LMP 09/25/2024 (Exact Date) SpO2 99% BMI 32.04 kg/m? SENSITIVE EXAMINATION CONSENT: The sensitive examination was discussed with the Patient or Patient's Authorized Network Intelligence Analyst. As applicable, any other physician, advance practice provider, medical student, or other health professional student that will be observing or involved in the sensitive examination for educational or training purposes was discussed with the Patient or Authorized Network Intelligence Analyst. The Patient or Authorized Network Intelligence Analyst has agreed to proceed with the sensitive examination. Marketing Lead present for exam. Physical Exam Constitutional: General: She is not in acute distress. Chest: Comments: 3cm pink area of scarring on the inferior right breast near the chest wall. There is a <1cm semi-circular superficial fissure without dehiscence. No erythema, induration, fluctuance, or drainage on dressing. Neurological: Mental Status: She is alert. {ASSESSMENT/PLAN: 1. Wound check, abscess - ICD9: V58.89, ICD10: Z51.89 (primary diagnosis) 2. Breast pain - ICD9: 611.71, ICD10: N64.4 Patient is reassured that there are no signs of infection or dehiscence of the wound. Continue to monitor and follow up with signs of infection such as increasing redness, pain, swelling, purulent drainage, or fever/malaise. Issa Chapin MD Differential Diagnoses - Healing wound site Procedures Referring Provider: SELF [[id number]] Allergies As of Date: 10/25/2024 (No Known Allergies) Date Reviewed: 10/25/2024 Reviewed by: Jackie Arzola MA - Fully Assessed Reason for Visit: Derm Problem [33] Cmt: Previous cyst site opened up, under right breast Primary Visit Diagnosis:Wound check, abscess [Z51.89] Other Visit Diagnosis:Breast pain [N64.4] Prescriptions as of 10/25/2024 - MULTIVITAMIN ORAL Take by mouth once daily. Problem List As Of Date 10/25/2024 Noted Resolved Tobacco abuse [Z72.0] 02/15/2014 Obesity, Class I, BMI 30-34.9 [E66.811] 04/02/2023 Marijuana use [F12.90] Level of Service: OFFICE/OUTPATIENT ESTABLISHED LOW [facility] 20 MIN [[id number]] Encounter Status:Closed by ISSA CHAPIN on 10/25/24 [facility] CNOVon 09-25-2024 CNOV Office Visit (GENSWS ) EMMA BAZAN ([id number]) 1980 F Date Time Provider Department 09/25/24 8:30 AM ESSENCE OBRIEN During your visit today, we recorded the following information about you: Temperature Last Period 98.1 degrees 09/25/24 Essence Obrien APRN.CNP 09/25/2024 8:37 AM Signed POST OP Emma Bazan : 1980 HISTORY: Emma Bazan is a 44 year old female who presents for follow up, IANDD of right breast abscess with Dr. Castillo AND myself on 09/14/35. The surgical site is healing without difficulty. Emma Bazan has no complaints. She feels her breast is healing well. She denies concerns of infections. She does note she was having worsening complaints of her infected fingernail after her IANDD- she presented to the ED and was started/ completed a course of clindamycin. Pathology was discussed with the patient: Few Actinomyces neuii ssp. neuii Abnormal -treatment for mild dx is doxycycline. PAST MEDICAL HISTORY: PAST MEDICAL HISTORY Diagnosis Date Marijuana use Obesity Onychomycosis Paronychia of right thumb Tobacco use disorder ACTIVE PROBLEM LIST Tobacco Abuse Obesity, Class I, Bmi 30-34.9 Marijuana Use PAST SURGICAL HISTORY Procedure Laterality Date INCISION AND DRAINAGE Right 09/13/2024 Incision and drainage of abscess of right breast. LAPAROSCOPY SURG CHOLECYSTECTOMY 07/13/2014 MEDICATIONS: Current Outpatient Medications Medication Sig clindamycin (CLEOCIN) 300 mg capsule Take 300 mg by mouth four times daily. X 10 days MULTIVITAMIN ORAL Take by mouth once daily. No current facility-administered medications for this visit. ALLERGIES: Patient has no known allergies. PHYSICAL EXAMINATION: GENERAL: Patient is a well appearing, well nourished, and pleasant, female alert and oriented, NAD. Temp: 36.7 ?C (98.1 ?F) Temp src: Temporal SKIN: Right breast with a healing open wound, good red granulation tissue. There is no erythema, purulence or fluctuance around the site. ASSESSMENT AND PLAN: 1) Right breast abscess s/p IANDD - the surgical site is healing without signs of infection - pathology result was discussed with the patient Return to clinic as needed. Essence Obrien APRN.CNP Allergies As of Date: 09/25/2024 (No Known Allergies) Date Reviewed: 09/25/2024 Reviewed by: Essence Obrien APRN.DOMESTIC MAID - Fully Assessed Reason for Visit: Follow Up [171] Primary Visit Diagnosis:Abscess of right breast [N61.1] Prescriptions as of 09/25/2024 - MULTIVITAMIN ORAL Take by mouth once daily. Problem List As Of Date 09/25/2024 Noted Resolved Tobacco abuse [Z72.0] 02/15/2014 Obesity, Class I, BMI 30-34.9 [E66.811] 04/02/2023 Marijuana use [F12.90] Medications Discontinued During This Encounter Prescriptions - clindamycin (CLEOCIN) 300 mg capsule (Discontinued) Take 300 mg by mouth four times daily. X 10 days Encounter Status:Closed by ESSENCE OBRIEN on 09/25/24 [facility] CNOVon 09-18-2024 CNOV Office Visit (FAMPWS ) EMMA BAZAN ([id number]) 1980 F Date Time Provider Department 09/18/24 9:00 AM [facility] During your visit today, we recorded the following information about you: Temperature Pulse Respiration Blood pressure 97.4 degrees 100/minute 16/minute 116/74 Weight 93.8 kg Mercy Torres MD 09/18/2024 9:17 AM Signed Chief Complaint Patient presents with: Follow Up: Right thumb Breast Problem: Right- patient wanting PCP to check area that had IANDD Recording using [employer] software for draft documentation of the visit was discussed with the patient/authorized containers sales representative; all questions welcomed and answered. Patient/authorized containers sales representative agreed to proceed HPI Emma Bazan is a 44 year old female who presents here today for Above Complaints.. Thumb Infection: - Initially seen for thumb infection, later worsened with increased swelling and redness, prompting an ER visit on at 0400 to [facility]. - ER visit led to a change in antibiotics from doxycycline to clindamycin. - Currently on clindamycin, with 5 days remaining in a 10-day course; denies side effects. - Reports significant improvement in redness and swelling. - Keeps the thumb covered with a Band-Aid and wears gloves during cleaning or dishwashing. - Continues to soak the thumb; denies fevers or chills. Right Breast Abscess: - Underwent IANDD for a right breast abscess on September 13. - Describes the procedure as rough, resulting in significant bruising the next morning. - Packing was removed after one day; currently using non-stick gauze pads and washing with Dial soap. - Reports minimal drainage; denies bleeding. - Follow-up appointment scheduled for the . - Family history of sebaceous cysts in mother and brother. - Previous cysts in the axillary and groin areas, currently resolved. Past medical history, appointments, medications, allergies reviewed. Previous Medical History PAST MEDICAL HISTORY Diagnosis Date Marijuana use Obesity Onychomycosis Paronychia of right thumb Tobacco use disorder Previous Surgical History PAST SURGICAL HISTORY Procedure Laterality Date LAPAROSCOPY SURG CHOLECYSTECTOMY 07/13/14 Family History FAMILY HISTORY Problem Relation Age of Onset Diabetes Mother Stroke Father other (ETOH) Sister No Known Problems Brother Heart Maternal Grandfather MO Allergies Maternal Grandfather No Known Problems Daughter Patient Allergies ALLERGIES No Known Allergies Current Medications Current Outpatient Medications on File Prior to Visit Medication Sig clindamycin (CLEOCIN) 300 mg capsule Take 300 mg by mouth four times daily. X 10 days MULTIVITAMIN ORAL Take by mouth. No current facility-administered medications on file prior to visit. Social History Social History Tobacco Use Smoking status: Every Day Current packs/day: 1.00 Average packs/day: 1 pack/day for 30.2 years (30.2 ttl pk-yrs) Types: Cigarettes Start date: 07/11/1994 Smokeless tobacco: Never Vaping Use Vaping status: Never Used Substance Use Topics Alcohol use: Yes Alcohol/week: 8.0 standard drinks of alcohol Types: 8 Standard drinks or equivalent per week Drug use: Yes Types: Marijuana Comment: periodically Review of Symptoms REVIEW OF SYSTEMS GENERAL: No weight loss, malaise or fevers RESPIRATORY: Negative for cough, hemoptysis, wheezing, COPD, dyspnea or shortness of breath CARDIOVASCULAR: Negative for chest pain, leg swelling, hypertension, CHF or palpitations SKIN: See HPI EXAM: BP 116/74 Pulse 100 Temp 36.3 ?C (97.4 ?F) Resp 16 Wt 93.8 kg (206 lb 12.8 oz) LMP 06/05/2023 (Exact Date) SpO2 99% BMI 32.39 kg/m? General Appearance: Well appearing, alert, in no acute distress, well-hydrated, well nourished.. Skin: skin around right thumb nail appears healthy without erythema, swelling, or drainage. S/p IANDD of right breast abscess with unroofing with shallow ulceration with granulation tissue. No surrounding erythema, bleeding, or purulent drainage. Noted scant serous drainage. Healing well. Musculoskeletal: No joint swelling, deformity, or tenderness. Health Maintenance List Depression Screening Never done Anxiety Screening Never done Colorectal Cancer Screening Never done Hepatitis B Vaccine(1 of 3 - 19+ 3-dose series) due on 09/13/2025 Covid-19 Vaccine( season) due on 09/13/2025 Influenza Vaccine(Season Ended) due on 12/18/2024 Mammogram Screening due on 09/07/2025 Diabetes Screening due on 09/14/2027 Cervical Cancer Screening due on 03/09/2028 DTaP,Tdap,Td Vaccine(3 - Td or Tdap) due on 06/19/2029 Lipid Screening due on 09/13/2029 Pneumococcal Vaccine Completed Hepatitis C Screening Discontinued HIV Screening Discontinued 1. Paronychia of right thumb (L03.011) - Significa (more content not included)... Normal [facility] Emergency Department Summary on 09-14-2024 Emergency Department Summary [facility] Medical Records Department [address] [place] [address] Emergency Department Summary 09/14/24 MR#: [id number] Acct: [id number] Name: EMMA BAZAN Rep #: [id number] : 1980 44 From: Asad Paz DO PCP: Dr. Noah Torres MD Status:DEP ER Location: ED HPI History of Present Illness Chief Complaint: Other, Pain/Inj Informant: patient Narrative Narrative: Patient is a 44-year-old female who reports no significant past medical history. She states that she was having pain in her right thumb for almost 2 weeks with no known injury. She states then she noticed a line underneath her nail that appeared pus-like. With concern for an infection causing her pain she presented to the ER. At that time she underwent needle decompression and was placed on doxycycline. She states she was initially doing better but over the last few days despite taking her antibiotics she is now has redness and swelling to the thumb. She states there has been no repeat injury. She denies any fevers or chills or history of immunosuppression. She states she had blood work done by her family doctor just yesterday. She states that despite using antibiotics the fact that she is having worsening pain and redness she is concerned for persistent infection and therefore comes in for evaluation [facility] Home Medications ???Medication ???Instructions ???Recorded ???Last Taken ???Type Control 1 tab PO DAILY 05/25/18 05/25/18 H istory clindamycin HCl 300 mg capsule 300 mg PO 4X/DAY 10 days #40 09/14 Unknown Rx (Cleocin HCl) CAPSULES doxycycline hyclate 100 mg tablet 100 mg PO BID 09/14/24 Unknown Hi story oxycodone-acetaminophe n 5 mg-325 1 tab PO Q6H PRN pain 3 days #12 0 09/14/24 Unknown Rx mg tablet (Percocet) tabs Allergy/AdvReac Type Severity Reaction Status Date / Time No Known Allergies Allergy Verified 09/14/24 04:39 Family History no significant family his Surgical History Hx of cholecystectomy Social History Smoking Status: Current every day smoker tobacco type: cigarettes ROS ROS ED Constitutional Constitutional ED: Denies chills or fever(s) ENT ENT ED: Denies sore throat Cardiovascular Cardiovascular: Denies chest pain Respiratory/Chest Respiratory/Chest: Denies cough or dyspnea Gastrointestinal Gastrointestinal: Denies abdominal pain, diarrhea, nausea or vomiting Genitourinary Genitourinary ED: Denies dysuria Musculoskeletal Musculoskeletal: Reports other Details: Positive right thumb pain/swelling Integumentary Reports other Details: Positive redness right thumb Neurologic Neurologic: Denies headache(s) Hematologic/Lymphatic Hematologic/Lymphatic: Denies easy bleeding or easy bruising EXAM Physical Exam Const Vital Signs: 09/14/24 04:39 09/14/24 04:39 09/14/24 04:42 Temperature 98.3 F 98.3 F Temperature Source Oral Oral Pulse Rate 84 85 Respiratory Rate 16 16 Respiratory Effort Normal Respiratory Pattern Normal Blood Pressure 137/86 H 137/86 H Blood Pressure Mean 103 103 Pulse Ox 100 100 Oxygen Delivery Method Room Air Room Air 09/14/24 05:25 Temperature 98.3 F Temperature Source Pulse Rate 85 Respiratory Rate 16 Respiratory Effort Respiratory Pattern Blood Pressure 126/84 H Blood Pressure Mean 98 Pulse Ox 98 Oxygen Delivery Method Positive well nourished and well developed General Appearance ED: well developed HEENT HEENT Narrative: Normocephalic atraumatic Eyes PERRL and EOMs intact bilaterally General Eye ED: Negative for scleral icterus Neck supple Resp normal respiratory effort and clear to auscultation bilaterally Cardio regular rate and regular rhythm Extremity Extremity Narrative: Right upper extremity is neurovascularly intact; AIN/PIN are intact and normal Patient has 2 trephination holes in the right thumb nail consistent with previous history of decompression. There is no remaining purulent material or subungual hematoma. The distal phalanx of the right thumb is slightly swollen compared to the left with asymmetric erythema and warmth. However there is no lymphangitic streaking. No Knievel signs to indicate infectious tenosynovitis. The finger pad is soft and compressible going against felon. No crepitance palpated Remainder of the exam is normal Neuro oriented x3, CN's II-XII intact bilaterally and no sensory deficits noted Sensorium / Orientation: alert Motor Exam: strength 5/5 throughout Psych mental status grossly normal Skin Skin Narrative: Soft tissue changes to the right thumb as documented above MDM MDM MDM Narrative Medical decision making narrativ (more content not included)... Normal [facility] Hand Min 3 Viewson Hand Min 3 Views [facility] Imaging Services [address], [place] [address] Hand Min 3 Views MR#: [id number] Acct: [id number] Name: EMMA BAZAN Rep #: [id number] : 1980 F 44 From: Tam Scott MD PCP: Dr. Noah Torres MD Status: REG ER Study: Hand Min 3 Views Date of Exam: 09/14/24 Exam# [id number] Ordering Dr: Asad Paz DO PROCEDURE: HAND MIN 3 VIEWS 09/14/2024 REASON FOR EXAM: ? OSTEOMYELITIS OF THUMB TECHNIQUE: 3 view(s) of the right hand COMPARISON: None available FINDINGS: No fracture or dislocation. The joint spaces appear within limits. No osseous destruction, sclerosis or periosteal reaction identified. No radiopaque foreign body seen. The soft tissues appear within limits. RAD/Hand Min 3 Views IMPRESSION: Study appears within limits. Reading Location: [facility] CC: Dr. Noah Torres MD; Asad Paz DO Manager Distribution Center: Signed Normal [facility] Bacteria Wnd Culton 09-14-19 25 Bacteria identified Cx Nom (Wound) ORGANISM ID: 1 Few Actinomyces neuii ssp. neuii No susceptibility testing done. ORGANISM ID: 3 Rare skin ignacio GRAM STAIN: No organisms seen Few Polymorphonuclear leukocytes Abnormal [facility] Comment on above: Performed By: #### 6 462-6 ####[facility] LABCLIA [id number] [place] [address] [place] CBC W Auto Differential pane l (Bld)on 09-13-2024 Basophils (Bld) [#/Vol] 0.05 10*3/uL Normal <0.11 [facility] Comment on above: Order Comment: Speci men Type: BLOOD SPECIMENOrdering Facility: [facility] Address: [address] [place] [address] Performed By: #### 5 7021-8 ####[facility] LABCLIA [id number] [place] [address] [place] Basophils/100 WBC (Bld) 0.4 % Normal [facility] Comment on above: Order Comment: Speci men Type: BLOOD SPECIMENOrdering Facility: [facility] Address: [address] [place] [address] Performed By: #### 5 7021-8 ####[facility] LABCLIA [id number] [place] [address] [place] Differential cell count method Nom (Bld) Auto Normal [facility] Comment on above: Order Comment: Speci men Type: BLOOD SPECIMENOrdering Facility: [facility] Address: [address] [place] [address] Performed By: #### 5 7021-8 ####[facility] LABCLIA [id number] [place] [address] [place] Eosinophils (Bld) [#/Vol] 0.06 10*3/uL Normal <0.46 [facility] Comment on above: Order Comment: Speci men Type: BLOOD SPECIMENOrdering Facility: [facility] Address: [address] [place] [address] Performed By: #### 5 7021-8 ####[facility] LABCLIA [id number] [place] [address] [place] Eosinophils/100 WBC (Bld) 0.5 % Normal [facility] Comment on above: Order Comment: Speci men Type: BLOOD SPECIMENOrdering Facility: [facility] Address: [address] [place] [address] Performed By: #### 5 7021-8 ####[facility] LABCLIA [id number] [place] [address] [place] Erythrocyte distribution width (RBC) [Ratio] 13.0 % Normal 11.5-15.0 [facility] Comment on above: Order Comment: Speci men Type: BLOOD SPECIMENOrdering Facility: [facility] Address: [address] [place] [address] Performed By: #### 5 7021-8 ####[facility] LABIA [id number] [place] [address] [place] Hematocrit (Bld) [Volume fraction] 42.7 % Normal 36.0-46.0 [facility] Comment on above: Order Comment: Speci men Type: BLOOD SPECIMENOrdering Facility: [facility] Address: [address] [place] [address] Performed By: #### 5 7021-8 ####[facility] LABCLIA [id number] [place] [address] [place] Hemoglobin (Bld) [Mass/Vol] 14.5 g/dL Normal 11.5-15.5 [facility] Comment on above: Order Comment: Speci men Type: BLOOD SPECIMENOrdering Facility: [facility] Address: [address] [place] [address] Performed By: #### 5 7021-8 ####[facility] LABCLIA [id number] [place] [address] [place] Immature granulocytes (Bld) [#/Vol] 0.04 10*3/uL Normal <0.10 [facility] Comment on above: Order Comment: Speci men Type: BLOOD SPECIMENOrdering Facility: [facility] Address: [address] [place] [address] Performed By: #### 5 7021-8 ####[facility] LABCLIA [id number] [place] [address] [place] Immature granulocytes/100 WBC (Bld) 0.3 % Normal [facility] Comment on above: Order Comment: Speci men Type: BLOOD SPECIMENOrdering Facility: [facility] Address: [address] [place] [address] Performed By: #### 5 7021-8 ####[facility] LABCLIA [id number] [place] [address] [place] Lymphocytes (Bld) [#/Vol] 2.38 10*3/uL Normal 1.00-4.00 [facility] Comment on above: Order Comment: Speci men Type: BLOOD SPECIMENOrdering Facility: [facility] Address: [address] [place] [address] Performed By: #### 5 7021-8 ####[facility] LABCLIA [id number] [place] [address] [place] Lymphocytes/100 WBC (Bld) 20.5 % Normal [facility] Comment on above: Order Comment: Speci men Type: BLOOD SPECIMENOrdering Facility: [facility] Address: [address] [place] [address] Performed By: #### 5 7021-8 ####[facility] LABCLIA [id number] [place] [address] [place] MCH (RBC) [Entitic mass] 30.1 pg Normal 26.0-34.0 [facility] Comment on above: Order Comment: Speci men Type: BLOOD SPECIMENOrdering Facility: [facility] Address: [address] [place] [address] Performed By: #### 5 7021-8 ####[facility] LABCLIA [id number] [address], [place] [address] [place] MCHC (RBC) [Mass/Vol] 34.0 g/dL Normal 30.5-36.0 [facility] Comment on above: Order Comment: Speci men Type: BLOOD SPECIMENOrdering Facility: [facility] Address: [address] [place] [address] Performed By: #### 5 7021-8 ####[facility] LABIA [id number] [address], [place] [address] [place] MCV (RBC) [Entitic vol] 88.8 fL Normal 80.0-100.0 [facility] Comment on above: Order Comment: Speci men Type: BLOOD SPECIMENOrdering Facility: [facility] Address: [address] [place] [address] Performed By: #### 5 7021-8 ####[facility] LABIA [id number] [address], [place] [address] [place] Monocytes (Bld) [#/Vol] 0.94 10*3/uL High <0.87 [facility] Comment on above: Order Comment: Speci men Type: BLOOD SPECIMENOrdering Facility: [facility] Address: [address] [place] [address] Performed By: #### 5 7021-8 ####[facility] LABCLIA [id number] [address], [facility] [place] Monocytes/100 WBC (Bld) 8.1 % Normal [facility] Comment on above: Order Comment: Speci men Type: BLOOD SPECIMENOrdering Facility: [facility] Address: [address] [place] [address] Performed By: #### 5 7021-8 ####[facility] LABCLIA [id number] [address], [facility] [place] Neutrophils (Bld) [#/Vol] 8.12 10*3/uL High 1.45-7.50 [facility] Comment on above: Order Comment: Speci men Type: BLOOD SPECIMENOrdering Facility: [facility] Address: [address] [place] [address] Performed By: #### 5 7021-8 ####[facility] LABCLIA [id number] [place] [address] [place] Neutrophils/100 WBC (Bld) 70.2 % Normal [facility] Comment on above: Order Comment: Speci men Type: BLOOD SPECIMENOrdering Facility: [facility] Address: [address] [place] [address] Performed By: #### 5 7021-8 ####[facility] LABCLIA [id number] [place] [address] [place] Nucleated RBC (Bld) [#/Vol] 10*3/uL Normal <0.01 [facility] Comment on above: Order Comment: Speci men Type: BLOOD SPECIMENOrdering Facility: [facility] Address: [address] [place] [address] Performed By: #### 5 7021-8 ####[facility] LABCLIA [id number] [place] [address] [place] Nucleated RBC/100 WBC (Bld) [Ratio] 0.0 /100 WBC Normal [facility] Comment on above: Order Comment: Speci men Type: BLOOD SPECIMENOrdering Facility: [facility] Address: [address] [place] [address] Performed By: #### 5 7021-8 ####[facility] LABCLIA [id number] [place] [address] [place] Platelet mean volume (Bld) [Entitic vol] 10.5 fL Normal 9.0-12.7 [facility] Comment on above: Order Comment: Speci men Type: BLOOD SPECIMENOrdering Facility: [facility] Address: [address] [place] [address] Performed By: #### 5 7021-8 ####[facility] LABIA [id number] [place] [address] [place] Platelets (Bld) [#/Vol] 305 10*3/uL Normal 150-400 [facility] Comment on above: Order Comment: Speci men Type: BLOOD SPECIMENOrdering Facility: [facility] Address: [address] [place] [address] Performed By: #### 5 7021-8 ####[facility] LABIA [id number] [place] [address] [place] RBC (Bld) [#/Vol] 4.81 10*6/uL Normal 3.90-5.20 [facility] Comment on above: Order Comment: Speci men Type: BLOOD SPECIMENOrdering Facility: [facility] Address: [address] [place] [address] Performed By: #### 5 7021-8 ####[facility] [id number] [place] [address] [place] WBC (Bld) [#/Vol] 11.59 10*3/uL High 3.70-11.[address] [facility] Comment on above: Order Comment: Speci men Type: BLOOD SPECIMENOrdering Facility: [facility] Address: [address] [place] [address] Performed By: #### 5 7021-8 ####[facility] [id number] [place] [id number] [facility] CNOVon 09-13-2024 CNOV Office Visit (GENS[facility] ) EMMA BAZAN ([id number]) 1980 F Date Time Provider Department 09/13/24 1:30 PM ESSENCE OBRIEN During your visit today, we recorded the following information about you: Pulse Blood pressure Weight 84/minute 116/80 94.8 kg Essence Obrien APRN.CNP 09/13/2024 3:53 PM Signed HISTORY AND PHYSICAL Emma Little Beni 1980 REFERRING PHYSICIAN: Self CHIEF COMPLAINT: breast abscess HPI: Emma is a 44 year old female with a complaint of a right breast abscess X 1 week , denies purulent discharge from the abscess or fevers. she denies a history of diabetes. She notes a hx of the same. The patient was seen by ER and was started on oral antibiotics (doxy) for infected thumb nail. SIGNIFICANT MEDICAL PROBLEMS: PAST MEDICAL HISTORY Diagnosis Date Marijuana use Obesity Onychomycosis Paronychia of right thumb Tobacco use disorder OPERATIONS: PAST SURGICAL HISTORY Procedure Laterality Date LAPAROSCOPY SURG CHOLECYSTECTOMY 07/13/14 CURRENT MEDICATIONS: Current Outpatient Medications Medication Sig Dispense Refill doxycycline hyclate (VIBRAMYCIN) 100 mg capsule Take 1 capsule by mouth two times a day for 3 days. 6 capsule 0 doxycycline (VIBRA-TABS) 100 mg tablet Take 1 tablet by mouth two times a day for 7 days. 14 tablet 0 MULTIVITAMIN ORAL Take by mouth. No current facility-administered medications for this visit. ALLERGIES: Patient has no known allergies. PERSONAL HISTORY: Social History Tobacco Use Smoking status: Every Day Current packs/day: 1.00 Average packs/day: 1 pack/day for 30.2 years (30.2 ttl pk-yrs) Types: Cigarettes Start date: 07/11/1994 Smokeless tobacco: Never Vaping Use Vaping status: Never Used Substance Use Topics Alcohol use: Yes Alcohol/week: 8.0 standard drinks of alcohol Types: 8 Standard drinks or equivalent per week Drug use: Yes Types: Marijuana Comment: periodically FAMILY HISTORY: FAMILY HISTORY Problem Relation Age of Onset Diabetes Mother Stroke Father other (ETOH) Sister No Known Problems Brother Heart Maternal Grandfather [place] Allergies Maternal Grandfather No Known Problems Daughter REVIEW OF SYMPTOMS: REVIEW OF SYSTEMS: General: The patient denies fatigue, denies weight loss, denies weight gain, denies feeling hot, and feelings of cold. Eyes: The patient denies glaucoma, denies eye injury/surgery, denies glasses or contacts. Ear/Nose/Throat: The patient denies allergies, denies hayfever, denies ear infections, and denies bloody noses. Cardiovascular: The patient denies chest pain, denies heart disease, denies high blood pressure, denies high cholesterol, and denies poor circulation. Respiratory: The patient denies tuberculosis, denies pneumonia, denies frequent cough, denies shortness of breath, and denies coughing up blood. Gastrointestinal: The patient denies difficulty swallowing, denies acid reflux, denies ulcers, denies jaundice/hepatitis, denies gallbladder problems, denies vomiting, denies black or tarry stools, denies hemorrhoids, denies bleeding from rectum, denies diverticulitis, denies constipation, denies diarrhea, denies loss of stool control, and denies hernias. Kidney/Bladder: The patient denies kidney stones, denies urine infections, and denies bloody urine. Skin: The patient denies a history of skin cancer, denies bleeding/changing moles, and denies a history of skin rash. Neurologic: The patient denies a history of epilepsy/convulsions, denies headaches, denies head/spinal injuries, and denies stroke/TIA. Psychiatric: The patient denies psychiatric medications, denies depression, and denies voices. Endocrine: The patient denies thyroid disorders, denies diabetes, and denies hormonal problems. Hematologic: The patient denies a history of bruising, denies bleeding, and denies anemia. Infections: The patient denies a history of measles and mumps, denies rheumatic fever, and denies sexually transmitted diseases. Musculoskeletal: The patient denies back pain/injury, denies back problems, denies sciatica, denies knee/foot trouble, denies arthritis, or denies gout. PHYSICAL EXAMINATION: General: The patient is 44 year old female, well nourished, well hydrated in no acute distress. The patient is oriented to time, place, and person. VITALS: Blood pressure 116/80, pulse 84, weight 94.8 kg (209 lb), last menstrual period 06/05/2023, SpO2 99%. Body mass index is 32.73 kg/m?. HEENT: exam deferred Extremities: no clubbing, cyanosis or edema. No adenopathy. Other: Right breast abscess with fluctuance with overlying erythema and tenderness The skin overlying the point of maximal fluctance is viable. LABORATORY VALUES: As Noted RADIOLOGIC STUDIES: As Noted PROCEDURE: INCISION AND DRAINAGE OF right breast ABSCESS After consent was obtained and (more content not included)... Normal [facility] BAZAN ([id number]) 1980 F Date Time Provider Department 09/13/24 8:00 AM [facility] During your visit today, we recorded the following information about you: Temperature Pulse Respiration Blood pressure 97.9 degrees 84/minute 16/minute 116/80 Weight 94.9 kg Mercy Torres MD 09/13/2024 8:48 AM Signed Chief Complaint Patient presents with: ER F/U: [facility]-right thumb nail concerns- work excuse for today if possible. 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 Patient/authorized containers sales representative agreed to proceed HPI Emma Bazan is a 44 year old female who presents here today for ER Follow Up. Annual Wellness Exam: - Smokes <1 pack per day, x30 years; denies use of e-cigarettes or vaping. - Consumes 3-4 alcoholic drinks twice a week; occasional marijuana use. - Not currently sexually active; not using control. - Recent mammogram on 09/07 was negative. - Pap smear and HPV test in February 2023 were normal. Right Thumb Injury: - Evaluated in the ER at [facility] on 09/10 for right thumb pain and vertical discoloration of the nail. - Initially seen at urgent care and started on doxycycline on 09/09. - ER visit involved trephination of the nail and extraction of purulent material; advised to continue doxycycline and perform warm water soaks. - Currently taking doxycycline BID and performing warm water soaks 6-7 times a day for 10-15 minutes. - Reports increased soreness, pink discoloration, and a knot on the thumb. - No fever, chills, spreading redness, warmth, streaking, or additional purulent drainage. Boils: - Recurrent boils under the breasts, with one currently present under right breast and draining purulent material which started about 1 week ago. Does not think it is increasing in size or worsening since she has started the doxycycline. - Previous boils under the arms and on the inner thigh. - Using tea tree oil soap and draw out salve for treatment. - Had similar lesion under left breast drained by Dr. Enciso in the past. - Believes boils may be related to diabetes; mother has diabetes and was diagnosed around age 40. - History of prediabetes; attempted lifestyle changes with limited success due to dietary challenges with a picky child. Past medical history, appointments, medications, allergies reviewed. Previous Medical History PAST MEDICAL HISTORY Diagnosis Date Marijuana use Obesity Onychomycosis Paronychia of right thumb Tobacco use disorder Previous Surgical History PAST SURGICAL HISTORY Procedure Laterality Date LAPAROSCOPY SURG CHOLECYSTECTOMY 07/13/14 Family History FAMILY HISTORY Problem Relation Age of Onset Diabetes Mother Stroke Father other (ETOH) Sister No Known Problems Brother Heart Maternal Grandfather [place] Allergies Maternal Grandfather No Known Problems Daughter Patient Allergies ALLERGIES No Known Allergies Current Medications Current Outpatient Medications on File Prior to Visit Medication Sig doxycycline (VIBRA-TABS) 100 mg tablet Take 1 tablet by mouth two times a day for 7 days. MULTIVITAMIN ORAL Take by mouth. fluticasone (FLONASE) 50 mcg/actuation nasal spray Use 2 Sprays in each nostril once daily. Rinse mouth after use. (Patient not taking: Reported on 04/10/2024) acetaminophen 325 mg cap Take by mouth. (Patient not taking: Reported on 04/10/2024) No current facility-administered medications on file prior to visit. Social History Social History Tobacco Use Smoking status: Every Day Current packs/day: 1.00 Average packs/day: 1 pack/day for 30.2 years (30.2 ttl pk-yrs) Types: Cigarettes Start date: 07/11/1994 Smokeless tobacco: Never Vaping Use Vaping status: Never Used Substance Use Topics Alcohol use: Yes Alcohol/week: 8.0 standard drinks of alcohol Types: 8 Standard drinks or equivalent per week Drug use: Yes Types: Marijuana Comment: periodically Review of Symptoms REVIEW OF SYSTEMS GENERAL: No weight loss, malaise or fevers HEENT: Negative for frequent or significant headaches, No changes in hearing or vision, no nose bleeds or other nasal problems NECK: Negative for lumps, goiter, pain and significant neck swelling RESPIRATORY: Negative for cough, hemoptysis, wheezing, COPD, dyspnea or shortness of breath CARDIOVASCULAR: Negative for chest pain, leg swelling, hypertension, CHF or palpitations GI: No nausea, vomiting, or diarrhea : No history of dysuria, frequency or incontinence TOWN PLANNER: Negative for abnormal vaginal bleeding, abnormal vaginal discharge MUSCULOSKELETAL: See HPI SKIN: See HPI PSYCH: Negative for (more content not included)... Normal [facility] Comprehensive metabolic 2000 panelon 09-13-2024 Albumin [Mass/Vol] 4.1 g/dL Normal 3.9-4.9 [facility] Comment on above: Order Comment: Speci men Type: BLOOD SPECIMENOrdering Facility: [facility] Address: [address] [place] [address] Performed By: #### 2 4323-8, LIPNF, 3 ####[facility] LABCLIA [id number] [place] [address] [place] ALP [Catalytic activity/Vol] 62 U/L Normal 34-123 [facility] Comment on above: Order Comment: Speci men Type: BLOOD SPECIMENOrdering Facility: [facility] Address: [address] [place] [address] Performed By: #### 2 4323-8, LIPNF, 3015-3 ####[facility] LABCLIA [id number] [place] [address] [place] ALT [Catalytic activity/Vol] 15 U/L Normal 7-38 [facility] Comment on above: Order Comment: Speci men Type: BLOOD SPECIMENOrdering Facility: [facility] Address: [address] [place] [address] Performed By: #### 2 4323-8, LIPNF, 6-3 ####[facility] LABCLIA [id number] [place] [id number] [place] Anion gap [Moles/Vol] 12 mmol/L Normal 8-15 [facility] Comment on above: Order Comment: Speci men Type: BLOOD SPECIMENOrdering Facility: [facility] Address: [address] [place] [address] Performed By: #### 2 4323-8, LIPNF, 6-3 ####[facility] LABCLIA [id number] [place] [address] [place] AST [Catalytic activity/Vol] 21 U/L Normal 13-35 [facility] Comment on above: Order Comment: Speci men Type: BLOOD SPECIMENOrdering Facility: [facility] Address: [address] [place] [address] Performed By: #### 2 4323-8, LIPNF, 6-3 ####[facility] LABIA [id number] [place] [address] [place] Bilirubin [Mass/Vol] 0.3 mg/dL Normal 0.2-1.3 [facility] Comment on above: Order Comment: Speci men Type: BLOOD SPECIMENOrdering Facility: [facility] Address: [address] [place] [address] Performed By: #### 2 4323-8, LIPNF, 6-3 ####[facility] LABCLIA [id number] [place] [id number] [place] Calcium [Mass/Vol] 9.2 mg/dL Normal 8.5-10.2 [facility] Comment on above: Order Comment: Speci men Type: BLOOD SPECIMENOrdering Facility: [facility] Address: [address] [place], [place] [id number] Performed By: #### 2 4323-8, LIPNF, 6-3 ####[facility] LABIA [id number] [address] [address] [place] Chloride [Moles/Vol] 104 mmol/L Normal 98-107 [facility] Comment on above: Order Comment: Speci men Type: BLOOD SPECIMENOrdering Facility: [facility] Address: [address] [place] [address] Performed By: #### 2 4323-8, LIPNF, 6-3 ####[facility] LABIA [id number] [place] [id number] [place] CO2 [Moles/Vol] 22 mmol/L Normal 22-30 [facility] Comment on above: Order Comment: Speci men Type: BLOOD SPECIMENOrdering Facility: [facility] Address: [address] [place] [address] Performed By: #### 2 4323-8, LIPNF, 6-3 ####[facility] LABIA [id number] [place] [id number] [place] Creatinine [Mass/Vol] 0.67 mg/dL Normal 0.58-0.96 [facility] Comment on above: Order Comment: Speci men Type: BLOOD SPECIMENOrdering Facility: [facility] Address: [address] [place] [address] Performed By: #### 2 4323-8, LIPNF, 6-3 ####[facility] LABIA [id number] [address] [address] [place] Creatinine and Glomerular filtration rate.predicted panel (S/P/Bld) 110 mL/min/1.73m??? Normal >=60 [facility] Comment on above: Order Comment: Speci men Type: BLOOD SPECIMENOrdering Facility: [facility] Address: [address] [place] [address] Result Comment: Kaye mated Glomerular Filtration Rate (eGFR) is calculated using the 2020 CKD-EPI creatinine equation. This equation utilizes serum creatinine, sex, and age as parameters. The creatinine assay has traceable calibration to isotope dilution-mass spectrometry. Refer to KDIGO guidelines for clinical interpretation. In patients with unstable renal function, e.g. those with acute kidney injury, the eGFR may not accurately reflect actual GFR. Performed By: #### 2 4323-8, VIRI, 3015-3 ####[facility] LABCLIA [id number] [address] [address] [place] Glucose [Mass/Vol] 99 mg/dL Normal 74-99 [facility] Comment on above: Order Comment: Yahaira thomas Type: BLOOD SPECIMENOrdering Facility: [facility] Address: [address] [place] [address] Result Comment: The [place] Diabetes Association (ADA) provides guidance for cutoff values for fasting glucose and random glucose. The ADA defines fasting as no caloric intake for at least 8 hours. Fasting plasma glucose results between 100 to 125 mg/dL indicate increased risk for diabetes (prediabetes). Fasting plasma glucose results greater than or equal to 126 mg/dL meet the criteria for diagnosis of diabetes. In the absence of unequivocal hyperglycemia, results should be confirmed by repeat testing. In a patient with classic symptoms of hyperglycemia or hyperglycemic crisis, random plasma glucose results greater than or equal to 200 mg/dL meet the criteria for diagnosis of diabetes. Reference: Standards of Medical Care in Diabetes 2016, [place] Diabetes Association. Diabetes Care. 2016.39(Suppl 1). Performed By: #### 2 4323-8, VIRI, 3015-3 ####[facility] LABCLIA [id number] [address] [address] [place] Potassium [Moles/Vol] 4.2 mmol/L Normal 3.7-5.1 [facility] Comment on above: Order Comment: Yahaira thomas Type: BLOOD SPECIMENOrdering Facility: [facility] Address: [address] [place] [address] Performed By: #### 2 4323-8, VIRI, 3015-3 ####[facility] LABCLIA [id number] [address] [address] [place] Protein [Mass/Vol] 6.8 g/dL Normal 6.3-8.0 [facility] Comment on above: Order Comment: Speci men Type: BLOOD SPECIMENOrdering Facility: [facility] Address: [address] [place] [address] Performed By: #### 2 4323-8, LIPNF, 3016-3 ####[facility] LABCLIA [id number] [place] [address] [place] Sodium [Moles/Vol] 138 mmol/L Normal 136-144 [facility] Comment on above: Order Comment: Speci men Type: BLOOD SPECIMENOrdering Facility: [facility] Address: [address] [place] [address] Performed By: #### 2 4323-8, LIPNF, 3016-3 ####[facility] LABCLIA [id number] [address] [place] Urea nitrogen [Mass/Vol] 9 mg/dL Normal 7-21 [facility] Comment on above: Order Comment: Speci men Type: BLOOD SPECIMENOrdering Facility: [facility] Address: [address] [place] [address] Performed By: #### 2 4323-8, LIPNF, 3016-3 ####[facility] LABIA [id number] [place] [address] [place] HbA1c (Bld)on 09-13-2024 Average glucose Estimated from glycated hemoglobin (Bld) [Mass/Vol] 108 mg/dL Normal [facility] Comment on above: Order Comment: Speci men Type: BLOOD SPECIMENOrdering Facility: [facility] Address: [address] [place] [address] Result Comment: eAG: (Estimated average glucose) is a calculated value from HgbA1c and is containers sales representative of the average blood glucose level in the last 2-3 month period. Performed By: #### 5 5454-3 ####[facility] LABCLIA [id number] [place] [id number] [place] HbA1c (Bld) [Mass fraction] 5.4 % Normal 4.3-5.6 [facility] Comment on above: Order Comment: Yahaira thomas Type: BLOOD SPECIMENOrdering Facility: [facility] Address: [address] [place] [address] Result Comment: [place] Diabetes Association guidelines indicate that patients with HgbA1c in the range 5.7-6.4% are at increased risk for development of diabetes, and intervention by lifestyle modification may be beneficial. HgbA1c greater or equal to 6.5% is considered diagnostic of diabetes. Performed By: #### 5 5454-3 ####[facility] LABCLIA [id number] [address] OF [facility] LIPID PANEL, NONFASTINGon Cholesterol [Mass/Vol] 152 mg/dL Normal <200 [facility] Comment on above: Order Comment: Yahaira thomas Type: BLOOD SPECIMENOrdering Facility: [facility] Address: [address] [place] [address] Result Comment: <200 mg/dL, Desirable 200-239 mg/dL, Borderline high >239 mg/dL, High Performed By: #### 2 4323-8, LIPNF, 3016-3 ####[facility] LABCLIA [id number] [place] [id number] [place] HDL CHOLESTEROL, NF 40 mg/dL Normal >39 [facility] Comment on above: Order Comment: Yahaira william Type: BLOOD SPECIMENOrdering Facility: [facility] Address: [address] [place] [address] Result Comment: 40-5 9 mg/dL, Acceptable >59 mg/dL, High: Negative risk factor for coronary heart disease <40 mg/dL, Low: Positive risk factor for coronary heart disease Performed By: #### 2 4323-8, LIPNF, 3016-3 ####[facility] LABCLIA [id number] [address], [facility] [place] LDL CHOLESTEROL CALCULATED, NF 82 mg/dL Normal <100 [facility] Comment on above: Order Comment: Yahaira thomas Type: BLOOD SPECIMENOrdering Facility: [facility] Address: [address] [place] [address] Result Comment: <100 mg/dL, Optimal 100-129 mg/dL, Near optimal/above optimal 130-159 mg/dL, Borderline high 160-189 mg/dL, High >189 mg/dL, Very high Secondary prevention optimal LDL Cholesterol levels are recommended to be <70 mg/dL LDL cholesterol is calculated using the Schilling-NIH equation. Performed By: #### 2 4323-8, LIPNF, 6-3 ####[facility] LABIA [id number] [address] OF [facility] LDL/HDL RATIO, NF 2.05 mg/dL Normal <2.54 [facility] Comment on above: Order Comment: Yahaira thomas Type: BLOOD SPECIMENOrdering Facility: [facility] Address: [address] [place] [address] Result Comment: Refe rence: 1. National Cholesterol Education Program ATP III Guideline At-A-Glance Quick Desk Reference: National Heart, Lung, and Blood Baldwin. National Institutes of Health. 2001: NIH Publication No. 01-3305. 2. An International Atherosclerosis Society position paper: global recommendations for the management of dyslipidemia: executive summary, Atherosclerosis. 2014: 232(2):410-413. Performed By: #### 2 4323-8, LIPNF, 3015-3 ####[facility] LABCLIA [id number] [place] [id number] [place] NON HDL CHOL, NF 112 mg/dL Normal <130 [facility] Comment on above: Order Comment: Yahaira thomas Type: BLOOD SPECIMENOrdering Facility: [facility] Address: [address] [place] [address] Result Comment: <130 mg/dL, Optimal 130-159 mg/dL, Near optimal/above optimal 160-189 mg/dL, Borderline high 190-219 mg/dL, High >219 mg/dL, Very high Secondary prevention optimal non HDL Cholesterol levels are recommended to be <100 mg/dL Performed By: #### 2 4323-8, LIPNF, 3016-3 ####[facility] LABCLIA [id number] [address], [place] [address] [place] T CHOL/HDL RATIO NF 3.80 mg/dL Normal <5.10 [facility] Comment on above: Order Comment: Speci men Type: BLOOD SPECIMENOrdering Facility: [facility] Address: [address] [place] [address] Performed By: #### 2 4323-8, LIPNF, 6-3 ####[facility] LABIA [id number] [place] [address] [place] TRIGLYCERIDES, NF 176 mg/dL High <150 [facility] Comment on above: Order Comment: Speci men Type: BLOOD SPECIMENOrdering Facility: [facility] Address: [address] [place] [address] Result Comment: <150 mg/dL, Normal 150-199 mg/dL, Borderline high 200-499 mg/dL, High >499 mg/dL, Very high Performed By: #### 2 4323-8, LIPNF, 3016-3 ####[facility] LABIA [id number] [address] [place] VLDL CHOLESTEROL, NF 27 mg/dL Normal <30 [facility] Comment on above: Order Comment: Speci men Type: BLOOD SPECIMENOrdering Facility: [facility] Address: [address] [place] [address] Performed By: #### 2 4323-8, LIPNF, 6-3 ####[facility] LABIA [id number] [place] [id number] [place] TSH SerPl-aCncon 09-13-2024 TSH Qn 3.180 m[IU]/L Normal 0.270-4.200 [facility] Comment on above: Order Comment: Speci men Type: BLOOD SPECIMENOrdering Facility: [facility] Address: [address] [place] [address] Result Comment: If t he patient is , TSH reference range varies by gestational period: First Trimester (weeks 9-12): 0.180-2.990 mIU/L Second Trimester: 0.110-3.980 mIU/L Third Trimester: 0.480-4.710 mIU/L Emilio Cadena et al. A Practical Approach for the Verifications and Determination of Site- and Trimester-Specific Reference Intervals for Thyroid Function tests in . Thyroid, 2019:29:3:412-420. Vlad Edgar et al. 2017 Guidelines of the [place] Thyroid Association for the Diagnosis and Management of Thyroid Disease during and the . Thyroid, 2017:27:3:315-389. Performed By: #### 2 4323-8, VIRI, 3016-3 ####[facility] LABCLIA [id number] [place] [address] [place] Emergency Department Summary on 09-10-2024 Emergency Department Summary [facility] Medical Records Department [address] [place] [address] Emergency Department Summary 09/10/24 MR#: [id number] Acct: [id number] Name: EMMA BAZAN Rep #: [id number] : 1980 44 From: Janis ENRIQUE PCP: Dr. Noah Torres MD Status:DEP ER Location: ED HPI History of Present Illness Chief Complaint: Upper Extremity Injury Narrative Narrative: Patient presenting today with pain to her right thumb that she has had over the last several days. She reports that she developed a discoloration vertically through the middle of her nail which concerned her, she went to urgent care yesterday and was placed on a course of doxycycline. She reports that she was continue to have pain/pressure to her fingernail prompting her to come in for evaluation. She denies any fevers or chills, she reports that she feels well otherwise. PFSH PFS Medical History no medical history Home Medications ???Medication ???Instructions ???Recorded ???Last Taken ???Type Control 1 tab PO DAILY 02/06/19 02/06/19 H istory Allergy/AdvReac Type Severity Reaction Status Date / Time No Known Allergies Allergy Verified 09/10/24 11:36 Family History no significant family his Surgical History no surgical history Social History Smoking Status: Current every day smoker tobacco type: cigarettes ROS ROS ED Constitutional Constitutional ED: Denies chills or fever(s) Cardiovascular Cardiovascular: Denies chest pain Respiratory/Chest Respiratory/Chest: Denies dyspnea Gastrointestinal Gastrointestinal: Denies abdominal pain, nausea or vomiting Musculoskeletal Musculoskeletal: Reports other Details: Right thumb pain Integumentary Denies Abrasions or rash Neurologic Neurologic: Denies weakness EXAM Physical Exam Const Vital Signs: 09/10/24 11:36 Temperature 97.1 F L Temperature Source Temporal Pulse Rate 86 Respiratory Rate 17 Blood Pressure 133/101 H Blood Pressure Mean 111 Pulse Ox 99 Oxygen Delivery Method Room Air Positive well nourished, well developed and no apparent distress General Appearance ED: well developed HEENT Reports normocephalic and head/scalp atraumatic Mouth ED: Yes moist mucous membranes normal Eyes PERRL and EOMs intact bilaterally Neck full ROM and supple Chest Wall inspection of chest normal Resp normal respiratory effort and clear to auscultation bilaterally Cardio regular rate and regular rhythm Back/Spine normal ROM Extremity full ROM Extremity Narrative: Right thumb nail with a vertical discoloration, the nail is tender to palpation, no surrounding erythema to the fingernail, she has full range of motion to her thumb, no warmth or discharge. Right upper extremity neurovascularly intact. Neuro moves all extremities, no focal motor deficits and no sensory deficits noted Sensorium / Orientation: awake and alert Psych mental status grossly normal and thought process normal Skin no rashes or lesions noted and no wounds MDM MDM MDM Narrative Medical decision making narrative: Patient presenting today due to pain/pressure to her right thumb fingernail that has been ongoing over the last several days. She noticed a vertical discoloration through her nail a few days ago, she went to urgent care Wednesday and was placed on doxycycline. The pressure has worsened, prompting her to come in to be seen. She does not have any erythema surrounding her fingernail to suggest an obvious paronychia, she does have a vertical discoloration that is light in color. I did trephinate her fingernail in 2 places along with discoloration with an 18-gauge needle after cleansing the fingernail with alcohol, purulent discharge was expelled. I suspect she had a early paronychia. 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 I recommended that she no longer submerge her thumb in any dirty water and wear gloves. I also recommended that she begin warm water soaks to her thumb several times daily over the next several days, she can continue her antibiotics, recommended she follow-up closely with her PCP. Return instructions discussed and patient discharged home in stable condition. MDM MDM Narrative Medical decision making narrative: Patient presenting today due to pain/pressure to her right thumb fingernail that has been ongoing over the last several days. She noticed a vertical discoloration through her nail a few days ago, she went to urgent care Wednesday and was placed on doxycycline. The pressure has worsened, prompting her to come in to be seen. She does not have any erythema surrounding h (more content not included)... [facility] Visit (UCTR ) EMMA BAZAN ([id number]) 1980 F Date Time Provider Department 09/08/24 4:00 PM GISEL KELLER [facility] During your visit today, we recorded the following information about you: Pulse Respiration Blood pressure Weight 82/minute 18/minute 119/80 95.6 kg Gisel Keller APRN.[facility] 09/08/2024 3:38 PM Signed [facility] Subjective Emmaemily Bazan is a 44 year old female. Patient presents with: Pain: To right thumb nail with discoloration, x1 week HPI Right Thumb Pain and Nail Discoloration: - Onset of pain last weekend, with a weird, funky, yellow line on the nail appearing this morning. - Initial pain localized to the distal phalanx, now involving the cuticle. - Denies trauma or injury to the nail. - Noted a previous little black thing on the nail that disappeared. 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 - Performs nail care at home; does not visit nail salons. - No chance of . Review of Systems Musculoskeletal: (+) right thumb pain Skin: (+) right thumb nail discoloration, (+) right thumb cuticle pain Objective BP 119/80 Pulse 82 Resp 18 Wt 95.6 kg (210 lb 12.2 oz) LMP 06/05/2023 (Exact Date) PF 98 L/min BMI 33.01 kg/m? Physical Exam General: No acute distress. Skin: Right thumb with nail discoloration, yellow line noted going down the center of the nail, tenderness around cuticle. no redness or swelling {1. Pain (R52) 2. Nail discoloration (L60.8) - Onset of thumb pain last weekend, with nail discoloration presenting as a yellow line on the right thumb this morning. - No history of trauma or injury to the nail; patient works with a saline solution at work. - Differential diagnosis includes bacterial or fungal infection. - Initiated doxycycline BID for 7 days to cover potential bacterial infection. - Referral to dermatology for further evaluation and potential biopsy; [facility] recommended for expedited appointment. - Patient advised to contact [facility] for the earliest available appointment. and Recording using ambient [employer] software for draft documentation of the visit was discussed with the patient/authorized containers sales representative; all questions welcomed and answered. Patient/authorized containers sales representative agreed to proceed MDM Procedures Allergies As of Date: 09/08/2024 (No Known Allergies) Date Reviewed: 09/08/2024 Reviewed by: Shoshana Johnson LPN - Fully Assessed Reason for Visit: Pain [78] Cmt: To right thumb nail with discoloration, x1 week Primary Visit Diagnosis:Pain [R52] Other Visit Diagnosis:Nail discoloration [L60.8] Order(s):CONSULT TO DERMATOLOGY [9006] Order #: [id number]: 1 FUTURE doxycycline (VIBRA-TABS) 100 mg tabletTake 1 tablet by mouth two times a day for 7 days.Disp: 14 tabletRfl: 0 Prescriptions as of 09/08/2024 - doxycycline (VIBRA-TABS) 100 mg tablet Take 1 tablet by mouth two times a day for 7 days. - MULTIVITAMIN ORAL Take by mouth. - fluticasone (FLONASE) 50 mcg/actuation nasal spray Use 2 Sprays in each nostril once daily. Rinse mouth after use. - acetaminophen 325 mg cap Take by mouth. Problem List As Of Date 09/08/2024 Noted Resolved Tobacco abuse [Z72.0] 02/15/2014 Obesity, Class I, BMI 30-34.9 [E66.811] 04/02/2023 Prescriptions ordered this encounter Disp Refills Start End DOXYCYCLINE HYCLATE 100 MG TABLET 14 t* 0 09/08/2024 09/15/2024 Route: PO Sig: Take 1 tablet by mouth two times a day for 7 days. Encounter Status:Closed by GISEL KELLER on 09/08/24 Normal [facility] SUSU SCREENING W TOMOon 09-07 SUSU SCREENING W RINA * * *Final Report* * * DATE OF EXAM: Sep 07 2024 7:55AM [facility] 0582 - SUSU SCREENING W RINA / PROCEDURE REASON: Encounter for screening mammogram for malignant neoplasm of breast * * * * Physician Interpretation * * * * RESULT: [place] [address] #[id number] - SUSU SCREENING W RINA HISTORY: 44 year-old patient seen for screening. Patient is asymptomatic in both breasts. Patient states no personal history of breast cancer. COMPARISON STUDIES: The present examination has been compared to prior imaging studies dated 12/14/2019 (mammogram), 12/20/2019 (mammogram) and 07/20/2023 (mammogram). MAMMOGRAM TECHNIQUE: The study was acquired using full field digital technology and interpreted from soft copy. Digital Breast Tomosynthesis (DBT) images were obtained and used to assist in the interpretation of this examination. MAMMOGRAM FINDINGS: There are scattered areas of fibroglandular density. No suspicious masses, calcifications or other abnormalities are seen in either breast. There are no significant interval changes. IMPRESSION: There is no mammographic evidence of malignancy in either breast. Routine screening mammogram is recommended. Annual mammogram will be due in 1 year. BI-RADS Category 1: Negative RISK: Based on the Tyrer-Cuzick (TC) risk assessment model, this patient has a 9.1% lifetime risk of developing breast cancer, meaning they are at average risk for developing breast cancer. However, this is only an estimate based on available history provided on the patient's questionnaire. We encourage all patients to talk with their providers about these results, further recommendations for managing breast health, and appropriate supplemental screening options if the patient has dense breast tissue. Interpreting Radiologist: Christopher Celestin M.D. Electronically signed on: 09/07/2024 Manager Distribution Center: [facility]ANDON Transcribe Date/Time: Sep 07 2024 7:46A Dictated by: CHRISTOPHER CELESTIN MD This examination was interpreted and the report reviewed and electronically signed by: CHRISTOPHER CELESTIN MD on Sep 07 2024 9:07PM EST [id number] Normal [facility] CNOVon 05-29-2024 CNOV Office Visit (GENSWS ) EMMA BAZAN ([id number]) 1980 F Date Time Provider Department 05/29/24 3:45 PM NEEMA ENCISO During your visit today, we recorded the following information about you: Neema Enciso MD 05/29/2024 3:51 PM Signed Emma Bazan 1980 REFERRING PHYSICIAN: No ref. provider found CHIEF COMPLAINT: Procedure (Excision of skin cyst of left lower breast area) HPI: The patient is a 43 year old female presents for excision of previous infected skin cyst of inferior aspect of left breast. However, at this point in time, the lesion has completely dissipated and is no longer palpable. There is small skin crater that was probably the site of the pore opening, but this has completely healed over as well. PAST MEDICAL HISTORY Diagnosis Date NEGATIVE MEDICAL HISTORY PAST SURGICAL HISTORY Procedure Laterality Date LAPAROSCOPY SURG CHOLECYSTECTOMY 07/13/14 Current Outpatient Medications Medication Sig MULTIVITAMIN ORAL Take by mouth. fluticasone (FLONASE) 50 mcg/actuation nasal spray Use 2 Sprays in each nostril once daily. Rinse mouth after use. (Patient not taking: Reported on 04/10/2024) acetaminophen 325 mg cap Take by mouth. (Patient not taking: Reported on 04/10/2024) No current facility-administered medications for this visit. ALLERGIES: Patient has no known allergies. REVIEW OF SYMPTOMS: Denies pain Denies fevers PHYSICAL EXAMINATION: General: The patient is 43 year old female, well nourished, well hydrated in no acute distress. The patient is oriented to time, place, and person. VITALS: Last menstrual period 06/05/2023. There is no height or weight on file to calculate BMI. Head: Normal cephalic, atraumatic Neck is supple with no tracheal deviation Chest - left breast - inferior aspect - at this point in time - there is no palpable lesion to remove - no evidence of infection Respiratory: Normal respiratory excursion and pattern. The sensitive examination was discussed with the Patient or Patient's Authorized Network Intelligence Analyst. As applicable, any other physician, advance practice provider, medical student, or other health professional student that will be observing or involved in the sensitive examination for educational or training purposes was discussed with the Patient or Authorized Network Intelligence Analyst. The Patient or Authorized Network Intelligence Analyst has agreed to proceed with the sensitive examination. (Sensitive examination includes inspection and/or palpation of the breasts, pelvis, prostate and anorectal regions) Assessment IMPRESSION: history of infected sebaceous cyst - completely resolved at this point in time PLAN: I have discussed the above with the patient. There are no feasible surgical indications at this time. Patient counseled to return to clinic if worsening signs/symptoms Patient to return to her PCP for medical care. Patient acknowledges the above. I have answered all questions to the patient?s satisfaction and the patient has no further questions. . Diagnoses: (L72.9) Skin cyst (primary encounter diagnosis) - infection resolved I have confirmed and edited as necessary, the PFSH and ROS obtained by others. Medical Decision Making: Problems: Minimal: Self-limited or minor problem Medical Decision Making Level: 2 - Straightforward Neema Enciso MD Allergies As of Date: 05/29/2024 (No Known Allergies) Date Reviewed: 05/29/2024 Reviewed by: Geovanna Mcmanus LPN - Fully Assessed Reason for Visit: Procedure [88] Cmt: Excision of skin cyst of left lower breast area Primary Visit Diagnosis:Skin cyst [L72.9] Prescriptions as of 05/29/2024 - MULTIVITAMIN ORAL Take by mouth. - fluticasone (FLONASE) 50 mcg/actuation nasal spray Use 2 Sprays in each nostril once daily. Rinse mouth after use. - acetaminophen 325 mg cap Take by mouth. Problem List As Of Date 05/29/2024 Noted Resolved Tobacco abuse [Z72.0] 02/15/2014 Obesity, Class I, BMI 30-34.9 [E66.811] 04/02/2023 Disposition: Return if symptoms worsen or fail to improve. Follow-up and Disposition History for Encounter Date Provider Department [id number]:Closed by NEEMA ENCISO on 05/29/24 [facility] CNOVon 05-08-2024 CNOV Office Visit (KATIE ) EMMA BAZAN ([id number]) 1980 F Date Time Provider Department 05/08/24 3:15 PM NEEMA ENCISO During your visit today, we recorded the following information about you: Temperature Pulse Blood pressure Weight 97.3 degrees 91/minute 118/82 97.4 kg Height 1.702 m Neema Enciso MD 05/13/2024 12:19 PM Signed Emma Bazan 1980 CHIEF COMPLAINT: Follow Up (Skin lesion) HPI: The patient is a 43 year old female here for follow up of left breast cellulitis. The infection consolidated to a smaller area with brawny skin discoloration. PAST MEDICAL HISTORY Diagnosis Date NEGATIVE MEDICAL HISTORY BMI 33 PAST SURGICAL HISTORY Procedure Laterality Date LAPAROSCOPY SURG CHOLECYSTECTOMY 07/13/14 Current Outpatient Medications Medication Sig MULTIVITAMIN ORAL Take by mouth. fluticasone (FLONASE) 50 mcg/actuation nasal spray Use 2 Sprays in each nostril once daily. Rinse mouth after use. (Patient not taking: Reported on 04/10/2024) acetaminophen 325 mg cap Take by mouth. (Patient not taking: Reported on 04/10/2024) No current facility-administered medications for this visit. ALLERGIES: Patient has no known allergies. REVIEW OF SYSTEMS: Denies fevers PHYSICAL EXAMINATION: General: The patient is 43 year old female, well nourished, well hydrated in no acute distress. The patient is oriented to time, place, and person. VITALS: Last menstrual period 06/05/2023. There is no height or weight on file to calculate BMI. 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 I have offered excision of skin cyst of lower left breast. I have explained the procedure to the patient. To be done in the office with local anesthesia I have counseled the patient as to the risks of the procedure, including but not limited to: infection, bleeding, injury to any blood vessels/nerves, scar tissue, continued infections, complications of anesthesia, etc. - the patient understands. The patient wishes to proceed. I have answered all questions to the patient?s satisfaction and the patient has no further questions. . Diagnoses: (L72.9) Skin cyst (primary encounter diagnosis) I have confirmed and edited as necessary, the PFSH and ROS obtained by others. Medical Decision Making: Problems: Low: Stable chronic illness Risk: Low: Low risk from testing/treatment Medical Decision Making Level: 3 - Low Neema Enciso MD Allergies As of Date: 05/08/2024 (No Known Allergies) Date Reviewed: 05/08/2024 Reviewed by: Briana Rocha LPN - Fully Assessed Reason for Visit: Follow Up [171] Cmt: Skin lesion Primary Visit Diagnosis:Skin cyst [L72.9] Prescriptions as of 05/13/2024 - MULTIVITAMIN ORAL Take by mouth. - fluticasone (FLONASE) 50 mcg/actuation nasal spray Use 2 Sprays in each nostril once daily. Rinse mouth after use. - acetaminophen 325 mg cap Take by mouth. Problem List As Of Date 05/08/2024 Noted Resolved Tobacco abuse [Z72.0] 02/15/2014 Obesity, Class I, BMI 30-34.9 [E66.811] 04/02/2023 Encounter Status:Closed by NEEMA ENCISO on 05/13/24 [facility] CNOVon 04-17-2024 CNOV Office Visit (KATIE ) EMMA BAZAN ([id number]) 1980 F Date Time Provider Department 04/17/24 2:30 PM NEEMA ENCISO During your visit today, we recorded the following information about you: Temperature Pulse Blood pressure Weight 97.8 degrees 95/minute 134/82 95.7 kg Height 1.702 m Neema Enciso MD 04/21/2024 1:57 PM Signed Emma Bazan 1980 REFERRING PHYSICIAN: Gisel Keller APRN.* CHIEF COMPLAINT: Consult (Left breast boil/abscess ruptured-currently taking doxycycline) HPI: The patient is a 43 year old female who presents with skin infection of left breast. She states that it developed in the past few weeks. She noted that it had ruptured within the past week and this made her feel better. She was also started on antibiotics. She denies fevers. PAST MEDICAL HISTORY Diagnosis Date NEGATIVE MEDICAL HISTORY PAST SURGICAL HISTORY Procedure Laterality Date LAPAROSCOPY SURG CHOLECYSTECTOMY 07/13/14 Current Outpatient Medications Medication Sig MULTIVITAMIN ORAL Take by mouth. doxycycline (VIBRA-TABS) 100 mg tablet Take 1 tablet by mouth two times a day for 7 days. fluticasone (FLONASE) 50 mcg/actuation nasal spray Use 2 Sprays in each nostril once daily. Rinse mouth after use. (Patient not taking: Reported on 04/10/2024) acetaminophen 325 mg cap Take by mouth. (Patient not taking: Reported on 04/10/2024) No current facility-administered medications for this visit. ALLERGIES: Patient has no known allergies. PERSONAL HISTORY: Social History Tobacco Use Smoking status: Every Day Current packs/day: 1.00 Average packs/day: 1 pack/day for 29.8 years (29.8 ttl pk-yrs) Types: Cigarettes Start date: 07/11/1994 Smokeless tobacco: Never Vaping Use Vaping status: current everyday user Substance Use Topics Alcohol use: Yes Comment: twisted teas Drug use: Yes Types: Marijuana Comment: periodically FAMILY HISTORY Problem Relation Age of Onset Stroke Father Diabetes Mother other (ETOH) Sister No Known Problems Brother Heart Maternal Grandfather [place] Allergies Maternal Grandfather REVIEW OF SYSTEMS: General: The patient denies fatigue, denies weight loss, denies weight gain, denies feeling hot, and denies feelings of cold. Eyes: The patient denies glaucoma, denies eye injury/surgery, does not wear glasses or contacts. Ear/Nose/Throat: The patient denies allergies, denies hayfever, denies ear infections, and denies bloody noses. Cardiovascular: The patient denies chest pain, denies heart disease, denies high blood pressure,denies cardiac stent, denies prior heart attack, denies irregular heart beat, denies high cholesterol, denies poor circulation, denies heart failure, other cardiac issues, denies claudication, denies cold feet, denies peripheral arterial stent. Respiratory: The patient denies tuberculosis, denies pneumonia, denies frequent cough, denies pulmonary embolism, denies shortness of breath, and denies coughing up blood. Gastrointestinal: The patient denies difficulty swallowing, denies acid reflux, denies ulcers, denies vomiting, denies jaundice/hepatitis, denies gallbladder problems, denies black or tarry stools, denies hemorrhoids, denies bleeding from rectum, denies diverticulitis, denies constipation, denies diarrhea, denies loss of stool control, and denies hernias. Kidney/Bladder: The patient denies kidney stones, denies urine infections, and denies bloody urine. Skin: The patient denies a history of skin cancer, denies bleeding/changing moles, and denies a history of skin rash. Neurologic: The patient denies a history of epilepsy/convulsions, denies headaches, denies head/spinal injuries, and denies stroke/TIA. Psychiatric: The patient denies psychiatric medications, denies depression, and denies voices, denies substance abuse. Endocrine: The patient denies thyroid disorders, denies diabetes, and denies hormonal problems. Hematologic: The patient denies a history of bruising, denies bleeding, and denies anemia, denies blood clots. Infections: The patient denies a history of measles and mumps, denies rheumatic fever, and denies sexually transmitted diseases. Musculoskeletal: The patient denies back pain/injury, denies back problems, denies sciatica, denies knee/foot trouble, denies arthritis, or denies gout. PHYSICAL EXAMINATION: General: The patient is 43 year old female, well nourished, well hydrated in no acute distress. The patient is oriented to time, place, and person. VITALS: Blood pressure 134/82, pulse 95, temperature 36.6 ?C (97.8 ?F), height 170.2 cm (5' 7), weight 95.7 kg (211 lb), last menstrual period 06/05/2023, SpO2 98%. Body mass index is 33.05 kg/m?. Head: Normal cephalic, atraumatic Eyes: pupils are equally round, sclera are clear/anicteric Neck is supple with no (more content not included)... Normal [facility] CNOVon 04-10-2024 CNOV Office Visit ([facility] ) EMMA BAZAN ([id number]) 1980 F Date Time Provider Department 04/10/24 3:30 PM SOLITARIO KELLERINIQUE [facility] During your visit today, we recorded the following information about you: Temperature Pulse Respiration Blood pressure 98.4 degrees 86/minute 16/minute 122/80 Weight 96.3 kg Gisel Keller APRN.[facility] 04/10/2024 3:36 PM Signed Subjective Complaints of soreness and redness under her left breast. Patient said that it started a about a month ago. Patient has been putting some drawnout salve on it. Patient says it has been staying the same. Patient is not sure if it has been draining. Patient denies any fever chills nausea vomiting. Patient says she has had a few other boils or abscesses in the past. The history is provided by the patient. No cvir tech was used. Review of Systems Constitutional: Negative. Objective Physical Exam Constitutional: Appearance: Normal appearance. Pulmonary: Effort: Pulmonary effort is normal. Chest: Comments: Patient does have redness in the area marked above it is not firm. Does appear to be draining. Neurological: Mental Status: She is alert. PAST MEDICAL HISTORY Diagnosis Date NEGATIVE MEDICAL HISTORY PAST SURGICAL HISTORY Procedure Laterality Date LAPAROSCOPY SURG CHOLECYSTECTOMY 07/13/14 ALLERGIES Patient has no known allergies. MEDICATIONS MULTIVITAMIN ORAL Take by mouth. doxycycline (VIBRA-TABS) 100 mg tablet Take 1 tablet by mouth two times a day for 7 days. fluticasone (FLONASE) 50 mcg/actuation nasal spray Use 2 Sprays in each nostril once daily. Rinse mouth after use. (Patient not taking: Reported on 04/10/2024) acetaminophen 325 mg cap Take by mouth. (Patient not taking: Reported on 04/10/2024) FAMILY HISTORY Problem Relation Age of Onset Stroke Father Diabetes Mother other (ETOH) Sister No Known Problems Brother Heart Maternal Grandfather [place] Allergies Maternal Grandfather Social History Tobacco Use Smoking status: Every Day Current packs/day: 1.00 Average packs/day: 1 pack/day for 29.7 years (29.7 ttl pk-yrs) Types: Cigarettes Start date: 07/11/1994 Smokeless tobacco: Never Vaping Use Vaping status: current everyday user Substance Use Topics Alcohol use: Yes Comment: twisted teas Drug use: Yes Types: Marijuana Comment: periodically ASSESSMENT/PLAN: 1. Skin infection - ICD9: 686.9, ICD10: L08.9 - DOXYCYCLINE HYCLATE 100 MG TABLET - CONSULT TO GENERAL SURGERY Was educated about proper use of medication and supportive therapies. Patient was educated about red flag symptoms. Patient was set up with general surgery follow-up in case it needs opened and drained. Patient agreeable to care plan. The sensitive examination was discussed with the Patient or Patient's Authorized Network Intelligence Analyst. As applicable, any other physician, advance practice provider, medical student, or other health professional student that will be observing or involved in the sensitive examination for educational or training purposes was discussed with the Patient or Authorized Network Intelligence Analyst. The Patient or Authorized Network Intelligence Analyst has agreed to proceed with the sensitive examination. (Sensitive examination includes inspection and/or palpation of the breasts, pelvis, prostate and anorectal regions) Gisel Keller APRN.[facility] Allergies As of Date: 04/10/2024 (No Known Allergies) Date Reviewed: 04/10/2024 Reviewed by: Parris Motta MA - Fully Assessed Reason for Visit: Derm Problem [33] Cmt: boil under left breast x 1 month Primary Visit Diagnosis:Skin infection [L08.9] Order(s):doxycycline (VIBRA-TABS) 100 mg tabletTake 1 tablet by mouth two times a day for 7 days.Disp: 14 tabletRfl: 0 CONSULT TO GENERAL SURGERY [9011] Order #: [id number]: 1 FUTURE Prescriptions as of 04/10/2024 - MULTIVITAMIN ORAL Take by mouth. - doxycycline (VIBRA-TABS) 100 mg tablet Take 1 tablet by mouth two times a day for 7 days. - fluticasone (FLONASE) 50 mcg/actuation nasal spray Use 2 Sprays in each nostril once daily. Rinse mouth after use. - acetaminophen 325 mg cap Take by mouth. Problem List As Of Date 04/10/2024 Noted Resolved Tobacco abuse [Z72.0] 02/15/2014 Obesity, Class I, BMI 30-34.9 [E66.811] 04/02/2023 Prescriptions ordered this encounter Disp Refills Start End DOXYCYCLINE HYCLATE 100 MG TABLET 14 t* 0 04/10/2024 04/17/2024 Route: ORAL Sig: Take 1 tablet by mouth two times a day for 7 days. Letter Text Encounter Status:Closed by GISEL KELLER on 04/10/24 Normal [facility] DBT Breast - bilateral scree ningon 07-20-2023 [facility] XR Chest PA and Lateralon IMPRESSION: No acute radiographic abnormality. Manager Distribution Center: [facility] Transcribe Date/Time: Jun 17 2023 8:42A Dictated by : KRISHNA DOYLE MD This examination was interpreted and the report reviewed and electronically signed by: KRISHNA DOYLE MD on Jun 17 2023 8:42AM [facility] DIVISION OF RADIOLOGY * * *Final Report* * * DATE OF EXAM: Jun 17 2023 8:41AM WOX [id number] - XR CHEST 2V FRONTAL/LAT / PROCEDURE REASON: Acute cough * * * * Physician Interpretation * * * * EXAMINATION: CHEST RADIOGRAPH (2 VIEW FRONTAL & LATERAL) CLINICAL HISTORY: Acute cough MQ: XC2_6 EXAM DATE/TIME: 06/17/2023 8:41 AM COMPARISON: No relevant prior studies available. RESULT: Lines, tubes, and devices: None. Lungs and pleura: No consolidation. No lung mass. No pleural effusion. No pneumothorax. Cardiomediastinal silhouette: Normal cardiomediastinal silhouette. Bones and soft tissues: Unremarkable. DIVISION OF RADIOLOGY Provider, [facility] - 06/17/2023 * * *Final Report* * * DATE OF EXAM: Jun 17 2023 8:41AM [facility]OX [id number] - XR CHEST 2V FRONTAL/LAT / PROCEDURE REASON: Acute cough * * * * Physician Interpretation * * * * EXAMINATION: CHEST RADIOGRAPH (2 VIEW FRONTAL & LATERAL) CLINICAL HISTORY: Acute cough MQ: XC2_6 EXAM DATE/TIME: 06/17/2023 8:41 AM COMPARISON: No relevant prior studies available. RESULT: Lines, tubes, and devices: None. Lungs and pleura: No consolidation. No lung mass. No pleural effusion. No pneumothorax. Cardiomediastinal silhouette: Normal cardiomediastinal silhouette. Bones and soft tissues: Unremarkable. IMPRESSION IMPRESSION: No acute radiographic abnormality. Manager Distribution Center: [facility] Transcribe Date/Time: Jun 17 2023 8:42A Dictated by : KRISHNA DOYLE MD This examination was interpreted and the report reviewed and electronically signed by: KRISHNA DOYLE MD on Jun 17 2023 8:42AM EST [facility] Radiology Study observation (narrative) [facility] XR Chest PA and LateralOrder ed By: Ccroseline Provider on 06-17-2023 [facility] Office Visit: Physicalon Alcoholism counseling (procedure) no Invalid Interpretation Code [facility] Work Phone: Documentation of current medications (procedure) Done Invalid Interpretation Code [facility] Work Phone: Documentation of current medications (procedure) T Invalid Interpretation Code [facility] Work Phone: Fall risk assessment No Invalid Interpretation Code [facility] Work Phone: Tobacco use [facility] Current every day smoker Invalid Interpretation Code [facility] Work Phone: Vital Signs Date Time Vital Sign Value Performing Clinician Faci [facility] 10-25-2024 09:40-0400 Body mass index (BMI) [Ratio] 32.04 kg/m2 Issa Chapin MD Work Phone: [facility] 10-25-2024 09:40-0400 Body temperature 99 [degF] Issa Chapin MD Work Phone: [facility] 10-25-2024 09:40-0400 Body weight 92.8 kg Issa Chapin MD Work Phone: [facility] 10-25-2024 09:40-0400 Diastolic blood pressure 76 mm[Hg] Issa Chapin MD Work Phone: [facility] 10-25-2024 09:40-0400 Heart rate 95 /min Issa Chapin MD Work Phone: [facility] 10-25-2024 09:40-0400 Respiratory rate 18 /min Issa Chapin MD Work Phone: [facility] 10-25-2024 09:40-0400 SaO2% (BldA) [Mass fraction] 99 % Issa Chapin MD Work Phone: [facility] 10-25-2024 09:40-0400 Systolic blood pressure 110 mm[Hg] Issa Chapin MD Work Phone: [facility] 09-25-2024 08:10-0400 Body temperature 98.1 [degF] Essence Obrien APRN.CNP Work Phone: [facility] 09-18-2024 08:49-0400 Body mass index (BMI) [Ratio] 32.39 kg/m2 Mercy Torres MD Work Phone: [facility] 09-18-2024 08:49-0400 Body temperature 97.39 [degF] Mercy Torres MD Work Phone: [facility] 09-18-2024 08:49-0400 Body weight 93.8 kg Mercy Torres MD Work Phone: [facility] 09-18-2024 08:49-0400 Diastolic blood pressure 74 mm[Hg] Mercy oTrres MD Work Phone: [facility] 09-18-2024 08:49-0400 Heart rate 100 /min Mercy Torres MD Work Phone: [facility] 09-18-2024 08:49-0400 Respiratory rate 16 /min Mercy Torres MD Work Phone: [facility] 09-18-2024 08:49-0400 SaO2% (BldA) [Mass fraction] 99 % Mercy Torres MD Work Phone: [facility] 09-18-2024 08:49-0400 Systolic blood pressure 116 mm[Hg] Mercy Torres MD Work Phone: [facility] 09-14-2024 05:25-0400 Body temperature 98.3 [degF] Dr. Noah Torres MD Work Phone: [facility] 09-14-2024 05:25-0400 Diastolic blood pressure 84 mm[Hg] Dr. Noah Torres MD Work Phone: [facility] 09-14-2024 05:25-0400 Heart rate 85 /min Dr. Noah Torres MD Work Phone: 8(076)470-716116 [place] [address] 09-14-2024 05:25-0400 Respiratory rate 16 /min Dr. Noah Torres MD Work Phone: 1(328)[phone] [place] [address] 09-14-2024 05:25-0400 SaO2% (BldA) [Mass fraction] 98 % Dr. Noah Torres MD Work Phone: 5(075)874-137816 [place] [address] 09-14-2024 05:25-0400 Systolic blood pressure 126 mm[Hg] Dr. Noah Torres MD Work Phone: 7(326)675-672838 [place] [address] 09-14-2024 04:39-0400 Body height 170.[address] Noah Torres MD Work Phone: 1(273)989-538738 [place] [address] 09-14-2024 04:39-0400 Body mass index (BMI) [Ratio] 32.9 kg/m2 Dr. Noah Torres MD Work Phone: 4(898)530-639816 [place] [address] 09-14-2024 04:39-0400 Body weight 95.[address] Noah Torres MD Work Phone: [facility] 09-13-2024 13:23-0400 Body mass index (BMI) [Ratio] 32.73 kg/m2 Essence Obrien APRN.[employer]STIC [employer] Work Phone: [facility] 09-13-2024 13:23-0400 Body weight 94.8 kg Essence Finchir INSURANCE COUNSELOR.[employer]ST[employer] Work Phone: [facility] 09-13-2024 13:23-0400 Diastolic blood pressure 80 mm[Hg] Essence Obrien APRN.DOMESTIC MAID Work Phone: [facility] 09-13-2024 13:23-0400 Heart rate 84 /min Essence Obrien APRN.DOMESTIC MAID Work Phone: [facility] 09-13-2024 13:23-0400 SaO2% (BldA) [Mass fraction] 99 % Essence Obrien APRN.DOMESTIC MAID Work Phone: [facility] 09-13-2024 13:23-0400 Systolic blood pressure 116 mm[Hg] Essence Obrien INSURANCE COUNSELOR.[employer]OMESTIC MAID Work Phone: [facility] 09-13-2024 07:44-0400 Body mass index (BMI) [Ratio] 32.77 kg/m2 Mercy Torres MD Work Phone: [facility] 09-13-2024 07:44-0400 Body temperature 97.9 [degF] Mercy Torres MD Work Phone: [facility] 09-13-2024 07:44-0400 Body weight 94.89 kg Mercy Torres MD Work Phone: [facility] 09-13-2024 07:44-0400 Diastolic blood pressure 80 mm[Hg] Mercy Torres MD Work Phone: [facility] 09-13-2024 07:44-0400 Heart rate 84 /min Mercy Torres MD Work Phone: [facility] 09-13-2024 07:44-0400 Respiratory rate 16 /min Mercy Torres MD Work Phone: [facility] 09-13-2024 07:44-0400 SaO2% (BldA) [Mass fraction] 99 % Mercy Torres MD Work Phone: [facility] 09-13-2024 07:44-0400 Systolic blood pressure 116 mm[Hg] Mercy Torres MD Work Phone: [facility] 09-10-2024 13:31-0400 Body temperature 97.1 [degF] Dr. Noah Torres MD Work Phone: [facility] 09-10-2024 13:31-0400 Diastolic blood pressure 82 mm[Hg] Dr. Noah Torres MD Work Phone: [facility] 09-10-2024 13:31-0400 Heart rate 79 /min Dr. Noah Torres MD Work Phone: [facility] 09-10-2024 13:31-0400 Respiratory rate 16 /min Dr. Noah Torres MD Work Phone: 3(640)655-747616 [place] [address] 09-10-2024 13:31-0400 SaO2% (BldA) [Mass fraction] 100 % Dr. Noah Torres MD Work Phone: 7(335)851-343116 [place] [address] 09-10-2024 13:31-0400 Systolic blood pressure 117 mm[Hg] Dr. Noah Torres MD Work Phone: 4(027)095-901938 [place] [address] 09-10-2024 11:36-0400 Body height 170.[address] Noah Torres MD Work Phone: 2(482)019-024838 [place] [address] 09-10-2024 11:36-0400 Body mass index (BMI) [Ratio] 32.4 kg/m2 Dr. Noah Torres MD Work Phone: 3(420)397-586938 [place] [address] 09-10-2024 11:36-0400 Body weight 93.[address] Noah Torres MD Work Phone: 8(697)633-381038 [place] [address] 04-17-2024 14:37-0500 Body height 170.2 cm Neema Enciso MD Work Phone: [facility] 04-17-2024 14:37-0500 Body mass index (BMI) [Ratio] 33.05 kg/m2 Neema Enciso MD Work Phone: [facility] 04-17-2024 14:37-0500 Body temperature 97.81 [degF] Neema Enciso MD Work Phone: [facility] 04-17-2024 14:37-0500 Body weight 95.71 kg Neema Enciso MD Work Phone: [facility] 04-17-2024 14:37-0500 Diastolic blood pressure 82 mm[Hg] Neema Enciso MD Work Phone: [facility] 04-17-2024 14:37-0500 Heart rate 95 /min Neema Enciso MD Work Phone: [facility] 04-17-2024 14:37-0500 SaO2% (BldA) [Mass fraction] 98 % Neema Enciso MD Work Phone: [facility] 04-17-2024 14:37-0500 Systolic blood pressure 134 mm[Hg] Neema Enciso MD Work Phone: [facility] 04-10-2024 15:22-0500 Body mass index (BMI) [Ratio] 34.2 kg/m2 Gisel Keller APRN.DOMESTIC MAID Work Phone: [facility] 04-10-2024 15:22-0500 Body temperature 98.4 [degF] Gisel Keller APRN.DOMESTIC MAID Work Phone: [facility] 04-10-2024 15:22-0500 Body weight 96.3 kg Gisel Keller APRN.DOMESTIC MAID Work Phone: [facility] 04-10-2024 15:22-0500 Diastolic blood pressure 80 mm[Hg] Gisel Keller APRN.DOMESTIC MAID Work Phone: [facility] 04-10-2024 15:22-0500 Heart rate 86 /min Gisel Keller APRN.DOMESTIC MAID Work Phone: [facility] 04-10-2024 15:22-0500 Respiratory rate 16 /min Gisel Keller APRN.DOMESTIC MAID Work Phone: [facility] 04-10-2024 15:22-0500 SaO2% (BldA) [Mass fraction] 98 % Gisel Keller APRN.DOMESTIC MAID Work Phone: [facility] 04-10-2024 15:22-0500 Systolic blood pressure 122 mm[Hg] Gisel Keller APRN.DOMESTIC MAID Work Phone: [facility] 06-17-2023 08:12-0500 Body temperature 97.81 [degF] Nicholas Kumar APRN.DOMESTIC MAID Work Phone: [facility] 06-17-2023 08:12-0500 Body weight 96.16 kg Nicholas José INSURANCE COUNSELOR.DOMESTIC MAID Work Phone: [facility] 06-17-2023 08:12-0500 Diastolic blood pressure 73 mm[Hg] Nicholas Kumar INSURANCE COUNSELOR.D[employer]STIC MAID Work Phone: [facility] 06-17-2023 08:12-0500 Heart rate 96 /min Nicholas Kumar INSURANCE COUNSELOR.D[employer]STIC MAID Work Phone: [facility] 06-17-2023 08:12-0500 Respiratory rate 18 /min Nicholas Kumar INSURANCE COUNSELOR.DOMESTIC MAID Work Phone: [facility] 06-17-2023 08:12-0500 SaO2% (BldA) [Mass fraction] 98 % Nicholas Kumar APRN.DOMESTIC MAID Work Phone: [facility] 06-17-2023 08:12-0500 Systolic blood pressure 107 mm[Hg] Nicholas Kumar INSURANCE COUNSELOR.DOMESTIC MAID Work Phone: [facility] 06-10-2023 08:44-0500 Body temperature 97.9 [degF] Gisel Keller APRN.DOMESTIC MAID Work Phone: [facility] 06-10-2023 08:44-0500 Body weight 98.88 kg Gisel Keller APRN.DOMESTIC MAID Work Phone: [facility] 06-10-2023 08:44-0500 Diastolic blood pressure 81 mm[Hg] Gisel Keller APRN.DOMESTIC MAID Work Phone: [facility] 06-10-2023 08:44-0500 Heart rate 91 /min Gisel Keller APRN.DOMESTIC MAID Work Phone: [facility] 06-10-2023 08:44-0500 Respiratory rate 20 /min Gisel Keller APRN.DOMESTIC MAID Work Phone: [facility] 06-10-2023 08:44-0500 SaO2% (BldA) [Mass fraction] 99 % Gisel Keller APRN.DOMESTIC MAID Work Phone: [facility] 06-10-2023 08:44-0500 Systolic blood pressure 132 mm[Hg] Gisel Keller APRN.DOMESTIC MAID Work Phone: [facility] 03-09-2023 09:33-0500 Body height 170.2 cm Ester Valiente MD Work Phone: [facility] 03-09-2023 09:33-0500 Body weight 93.89 kg Ester Valiente MD Work Phone: [facility] 03-09-2023 09:33-0500 Diastolic blood pressure 70 mm[Hg] Ester Valiente MD Work Phone: [facility] 03-09-2023 09:33-0500 Systolic blood pressure 102 mm[Hg] Ester Valiente MD Work Phone: [facility] 03-16-2022 11:54-0500 Body temperature 99.19 [degF] Issa Chapin MD Work Phone: [facility] 03-16-2022 11:54-0500 Body weight 93.89 kg Issa Chapin MD Work Phone: [facility] 03-16-2022 11:54-0500 Diastolic blood pressure 68 mm[Hg] Issa Chapin MD Work Phone: [facility] 03-16-2022 11:54-0500 Heart rate 112 /min Issa Chapin MD Work Phone: [facility] 03-16-2022 11:54-0500 Respiratory rate 16 /min Issa Chapin MD Work Phone: [facility] 03-16-2022 11:54-0500 SaO2% (BldA) [Mass fraction] 98 % Issa Chapin MD Work Phone: [facility] 03-16-2022 11:54-0500 Systolic blood pressure 124 mm[Hg] Issa Chapin MD Work Phone: [facility] 07-29-2021 09:04-0400 Body temperature 97.9 [degF] Leonardo Cristina APRN.DOMESTIC MAID Work Phone: [facility] 07-29-2021 09:04-0400 Body weight 86.27 kg Leonardo Pendlesbury INSURANCE COUNSELOR.DOMESTIC MAID Work Phone: [facility] 07-29-2021 09:04-0400 Diastolic blood pressure 70 mm[Hg] Leonardo Linareslebury INSURANCE COUNSELOR.DOMESTIC MAID Work Phone: [facility] 07-29-2021 09:04-0400 Heart rate 90 /min Leonardo Pendlebury INSURANCE COUNSELOR.DOMESTIC MAID Work Phone: [facility] 07-29-2021 09:04-0400 Respiratory rate 14 /min Leonardo Pendlebury INSURANCE COUNSELOR.DOMESTIC MAID Work Phone: [facility] 07-29-2021 09:04-0400 SaO2% (BldA) [Mass fraction] 97 % Leonardo Cristina INSURANCE COUNSELOR.DOMESTIC MAID Work Phone: [facility] 07-29-2021 09:04-0400 Systolic blood pressure 116 mm[Hg] Leonardo Gomezbury INSURANCE COUNSELOR.DOMESTIC MAID Work Phone: [facility] 08-28-2016 12:12-0400 BMI (Body Mass Index) 31.47 kg/m2 Stephanie Flores LPN [facility] Work Phone: 08-28-2016 12:12-0400 Body Temperature 97.8 [degF] Stephanie Flores LPN [facility] Work Phone: 08-28-2016 12:12-0400 BP Diastolic 78 mm[Hg] Stephanie Flores LPN [facility] Work Phone: 08-28-2016 12:12-0400 BP Systolic 114 mm[Hg] Stephanie Flores LPN [facility] Work Phone: 08-28-2016 12:12-0400 Height 167.64 cm Stephanie Flores LPN [facility] Work Phone: 08-28-2016 12:12-0400 Pulse (Heart Rate) 75 /min Stephanie Flores LPN [facility] Work Phone: 08-28-2016 12:12-0400 Pulse Oximetry 98 % Stephanie Flores [facility] Work Phone: 08-28-2016 12:12-0400 Respiratory Rate 16 /min Stephanie Flores LPN [facility] Work Phone: 08-28-2016 12:12-0400 Weight 88.45 kg Stephanie Flores LPN [facility] Work Phone: Encounters Encounter Date Encounter Type Care Provider Facility Start: 02-15-2025 End: 02-15-2025 ambulatory ESTER LOVELACE VALIENTE Facility:[facility] Start: 02-15-2025 Encounter for gynecological examination (general) (routine) without abnormal findings ESTER VALIENTE [facility] Start: 10-25-2024 End: 10-25-2024 Office outpatient visit 15 minutes Issa Chapin MD Work Phone: [facility] [place] Comment on above: Wound check, abscess (Primary Dx); Breast pain Start: 10-25-2024 End: 10-25-2024 ambulatory MERCY TORRES Facility:[facility] Start: 09-25-2024 End: 09-25-2024 Patient encounter procedure Essence Obrien APRN.CNP Work Phone: General Surgery Comment on above: Abscess of right ivan ast (Primary Dx) Start: 09-25-2024 End: 09-25-2024 ambulatory MERCY TORRES Facility:[facility] Start: 09-18-2024 End: 09-18-2024 Patient encounter procedure Mercy Torres MD Work Phone: [facility] [place] Comment on above: Paronychia of right thumb (Primary Dx); Abscess of right breast Start: 09-18-2024 End: 09-18-2024 ambulatory MERCY TORRES Facility:[facility] Start: 09-15-2024 End: 11-15-2024 Follow-up encounter Essence Obrien APRN.DOMESTIC MAID Work Phone: General Surgery Start: 09-14-2024 End: 09-15-2024 Follow-up encounter Mercy Torres MD Work Phone: [facility] [place] Comment on above: Results Start: 09-14-2024 End: 09-14-2024 Emergency department patient visit Dr. Noah Torres MD Work Phone: -Emergency Department Work Phone: Start: 09-13-2024 End: 09-13-2024 ambulatory SELF Facility:[facility] Start: 09-13-2024 End: 09-13-2024 ambulatory MERCY TORRES Facility:[facility] Start: 09-13-2024 End: 09-13-2024 ambulatory SELF Facility:[facility] Start: 09-13-2024 End: 09-13-2024 Patient encounter procedure Mercy Torres MD Work Phone: [facility] [place] Comment on above: Annual physical exam (Primary Dx); Paronychia of right thumb; Abscess of right breast; Onychomycosis; Screening for colon cancer; Obesity, Class I, BMI 30-34.9; Tobacco abuse; Marijuana use Abscess of right ivan ast (Primary Dx) Start: 09-12-2024 End: 09-12-2024 ambulatory [facility] Work Phone: Nurse Phone Triage Comment on above: Right Thumb Drainage Start: 09-10-2024 End: 09-10-2024 Emergency department patient visit Dr. Noah Torres MD Work Phone: -Emergency Department Work Phone: Start: 09-08-2024 End: 09-08-2024 ambulatory MERCY TORRES Facility:[facility] Start: 09-08-2024 End: 11-08-2024 Follow-up encounter Ester Valiente MD Work Phone: OB/Gynecology Start: 09-07-2024 ambulatory MERCY Sánchez acility:[facility] Start: 05-29-2024 End: 05-29-2024 Patient encounter procedure Neema Enciso MD Work Phone: General Surgery Comment on above: Skin cyst (Primary D x) Start: 05-29-2024 End: 05-29-2024 ambulatory [facility] Facility:[facility] Start: 05-08-2024 End: 05-08-2024 ambulatory NEEMA ENCISO Facility:[facility] Start: 04-18-2024 End: 04-18-2024 ambulatory [facility] Facility:[facility] Start: 04-17-2024 End: 04-17-2024 ambulatory NEEMA ENCISO Facility:[facility] Start: 04-17-2024 End: 04-17-2024 Patient encounter procedure Neema Enciso MD Work Phone: General Surgery Comment on above: Skin infection Start: 04-10-2024 End: 04-10-2024 ambulatory [facility] Facility:[facility] Start: 04-10-2024 End: 04-10-2024 Patient encounter procedure Gisel Keller APRN.DOMESTIC MAID Work Phone: [facility] Comment on above: Skin infection (Prim kathy Dx) Start: 01-31-2024 End: 01-31-2024 Telephone encounter Ester Valiente MD Work Phone: OB/Gynecology Comment on above: Orders Start: 07-20-2023 Documentation procedure Mammog cathie Coordinator [facility] Start: 07-20-2023 Letter encounter Mammography Coordinator [facility] Department Start: 07-20-2023 End: 07-20-2023 Subsequent hospital visit by physician Screen Mammo [facility] Comment on above: Encounter for screen ing mammogram for breast cancer [Z12.31] Start: 06-17-2023 End: 06-17-2023 Subsequent hospital visit by physician Xr [facility] [place] Work Phone: Radiology Comment on above: Acute cough [R05.1] Start: 06-17-2023 End: 06-17-2023 Patient encounter procedure Nicholas Kumar APRN.DOMESTIC MAID Work Phone: [facility] Comment on above: URI, acute (Primary Dx); Acute cough Start: 06-10-2023 End: 06-10-2023 Patient encounter procedure Gisel Krishna AGUILAR.DOMESTIC MAID Work Phone: [facility] Comment on above: Skin infection (Prim kathy Dx) Start: 03-09-2023 End: 03-09-2023 Patient encounter procedure Ester Valiente MD Work Phone: OB/Gynecology Comment on above: Encounter for gyneco logical examination (general) (routine) without abnormal findings (Primary Dx); Screening for cervical cancer; Encounter for screening for human papillomavirus (HPV); Encounter for screening mammogram for breast cancer Start: 03-09-2023 End: 03-09-2023 Patient encounter status Ester Valiente MD Work Phone: [facility] Start: 05-18-2022 End: 05-18-2022 ambulatory [facility] Work Phone: Start: 05-18-2022 End: 05-18-2022 Patient encounter procedure [facility] Start: 03-17-2022 Telephone encounter Elisa Rodas APRN.DOMESTIC MAID Work Phone: [facility] Comment on above: Results Start: 03-16-2022 End: 03-16-2022 Patient encounter procedure Issa Chapin MD Work Phone: [facility] Comment on above: Influenza-like illne ss (Primary Dx); Exposure to confirmed case of COVID-19 Start: 01-07-2022 ambulatory Mercy Torres MD Work Phone: Internal Medicine [facility] Start: 12-03-2021 End: 12-03-2021 Patient encounter procedure Salbador Isidro Work Phone: Podiatry Comment on above: Plantar fasciitis (P rimary Dx); Plantar wart of left foot Start: 07-30-2021 Telephone encounter Issa Flores MD Work Phone: [facility] Comment on above: Results Start: 07-29-2021 End: 07-29-2021 Patient encounter procedure Leonardo Cristina APRN.DOMESTIC MAID Work Phone: [facility] Comment on above: Viral illness (Prima ry Dx) Procedures Date Procedure Procedure Detail Performing Clinician Start: 09-14-2024 Plain x-ray of hand Dr. Noah Torres MD Work Phone: Start: 09-13-2024 Lipid 1996 panel - S anai or Plasma Essence Obrien INSURANCE COUNSELOR.[employer]ID Work Phone: Start: 07-20-2023 Screening digital br east tomosynthesis bi Ester Olimpia Valiente MD Work Phone: Start: 06-17-2023 Radiologic exam ches t 2 views Nicholas Kumar INSURANCE COUNSELOR.D[employer] MAID Work Phone: Start: 04-02-2023 Lipid 1996 panel - S anai or Plasma Nurse Wstr Work Phone: Start: 05-18-2022 Screening mammography Start: 12-14-2019 Mammography Leonardo liu INSURANCE COUNSELOR.[employer] Work Phone: Start: 03-05-2010 End: 03-05-2010 TB intradermal test Duarte Jones MS,PA-C Plan of Treatment Date Care Activity Detail Author Start: 09-13-2029 Lipid panel Lipid Screening [facility] Start: 06-19-2029 Urine microalbumin profile DTaP,Tdap,Td Vaccine (3 - Td or Tdap) [facility] Start: 04-02-2028 Lipid panel Lipid Screening [facility] Start: 03-09-2028 Screening for malign ant neoplasm of cervix [facility] Start: 09-14-2027 Diabetes Screening Diabetes Screenin [facility] Start: 04-02-2026 Diabetes Screening Diabetes Screenin [facility] Start: 09-13-2025 Covid-19 Vaccine ( season) Covid-19 Vaccine () [facility] Comment on above: Postponed from 12/18 (Declined at this time) Start: 09-13-2025 Hepatitis B Vaccine (1 of 3 - 19+ 3-dose series) Hepatitis B Vaccine (1 of 3 - 19+ 3-dose series) [facility] Comment on above: Postponed from 07/17 (Declined at this time) Start: 09-07-2025 Screening for malign ant neoplasm of breast Mammogram Screening [facility] Start: 02-15-2025 End: 02-15-2025 Patient encounter procedure 02/15/2025 2:30 PM EDT Office Visit OB/Gynecology [address] [place] [address] Ester Gray MD [address] [place] [address] Annual Exam OB/Gynecology Comment on above: Annual Exam Start: 12-18-2024 Influenza vaccination C [facility] Start: 09-25-2024 End: 09-25-2024 Patient encounter procedure 09/25/2024 8:30 AM EDT Office Visit General Surgery [address] [place] [address] Essence Obrien APRN.DOMESTIC MAID [address] [place] [address] follow up General Surgery Comment on above: follow up Start: 09-18-2024 End: 09-18-2024 Patient encounter procedure 09/18/2024 9:00 AM EDT Office Visit [facility] [place] [address] [facility] [place] [address] Mercy Torres MD [address] [facility] [place] [address] Follow up right thumb [facility] [place] Comment on above: Follow up right thum b Start: 09-14-2024 [facility] Start: 09-13-2024 End: 12-13-2024 CBC W Auto Differential panel - Blood [facility] Work Phone: Comment on above: Expected: 09/13/2024 , Expires: 12/13/2024 Start: 09-13-2024 End: 12-13-2024 Comprehensive metabolic 2000 panel - Serum or Plasma [facility] Comment on above: Expected: 09/13/2024 , Expires: 12/13/2024 Start: 09-13-2024 End: 12-13-2024 Hemoglobin A1c in Blood [facility] Comment on above: Expected: 09/13/2024 , Expires: 12/13/2024 Start: 09-13-2024 End: 12-13-2024 LIPID PANEL, NONFASTING [facility] Comment on above: Expected: 09/13/2024 , Expires: 12/13/2024 Start: 09-13-2024 End: 12-13-2024 Thyrotropin [Units/volume] in Serum or Plasma [facility] Comment on above: Expected: 09/13/2024 , Expires: 12/13/2024 Start: 09-13-2024 End: 09-13-2024 Patient encounter procedure 09/13/2024 8:00 AM EDT Office Visit [facility] [place] [address] [place] [address] Mercy Torres MD [address] [place] [address] physical [facility] [place] Comment on above: physical Start: 09-10-2024 Incision & drainage abscess simple/single I&D ABSCESS SIMPLE/SINGLE [facility] Start: 09-10-2024 [facility] Start: 07-24-2024 End: 07-24-2024 Patient encounter procedure 07/24/2024 12:30 PM EDT Appointment Mammogram [address] [place] [address] Encounter for screening mammogram for malignant neoplasm of breast [Z12.31] Mammogram Comment on above: Encounter for screen ing mammogram for malignant neoplasm of breast [Z12.31] Start: 07-19-2024 Screening for malign ant neoplasm of breast Mammogram Screening [facility] Start: 07-17-2024 Screening for malign ant neoplasm of colon [facility] Start: 05-08-2024 End: 05-08-2024 Patient encounter procedure 05/08/2024 3:15 PM EST Office Visit General Surgery [address] [place] [address] Neema Enciso MD [address] [place] [id number] 3 wk f/u skin lesion General Surgery Comment on above: 3 wk f/u skin lesion Start: 04-17-2024 End: 04-17-2024 Patient encounter procedure 04/17/2024 2:30 PM EST Office Visit General Surgery [address] [place], [place] [id number] Neema Enciso MD [address] [place] [phone] Skin infection [L08.9] General Surgery Comment on above: Skin infection [L08. 9] Start: 04-02-2024 Covid-19 Vaccine () Covid-19 Vaccine () [facility] Comment on above: Postponed from 12/18 (Declined at this time) Start: 03-14-2024 End: 03-14-2024 Patient encounter procedure 03/14/2024 11:20 AM EST Office Visit OB/Gynecology [address] [place], [place] [id number] Ester Gray MD [address] [place] [address] Annual OB/Gynecology Comment on above: Annual Start: 12-19-2023 Covid-19 Vaccine () Covid-19 Vaccine () [facility] Start: 12-19-2023 Covid-19 Vaccine () Covid-19 Vaccine () [facility] Start: 12-19-2023 Influenza vaccination Influenza Vacc ine (#1) [facility] Start: 05-02-2023 HPV TESTING HPV TESTING [facility] Start: 05-02-2023 PAP TESTING PAP TESTING [facility] Start: 04-19-2023 Behavioral Health Screening Behavioral Health Screening [facility] Start: 04-19-2023 Depression Assessment [facility] Start: 12-18-2022 Covid-19 Vaccine ( season) Covid-19 Vaccine ( season) [facility] Start: 12-18-2022 Influenza vaccination Influenza Vacc ine (#1) [facility] Start: 04-19-2022 Depression Assessment Depression Ass essment [facility] Start: 03-16-2022 End: 03-30-2022 Influenza virus A and B RNA and SARS-CoV-2 (COVID-19) N gene panel - Respiratory specimen by JACKIE with probe detection COVID WITH FLUA+B, ROUTINE Microbiology Routine Influenza-like illness Exposure to confirmed case of COVID-19 Expected: 03/16/2022, Expires: 03/30/2022 [facility] Work Phone: Comment on above: Expected: 03/16/2022 , Expires: 03/30/2022 Start: 12-18-2021 Influenza vaccination C [facility] Start: 04-19-2021 DEPRESSION ASSESSMENT DEPRESSION ASS [facility] Start: 02-03-2021 COVID-19 VACCINE (3 - Booster for Moderna series) COVID-19 VACCINE (3 - Booster for Moderna series) [facility] Start: 12-13-2020 Mammography [facility] Start: 12-13-2020 Screening for malign ant neoplasm of breast Mammogram Screening [facility] Start: 10-29-2020 COVID-19 VACCINE (3 - Booster for Moderna series) COVID-19 VACCINE (3 - Booster for Moderna series) [facility] Start: 06-21-2019 Urine microalbumin profile DTAP,TDAP,TD (1 - Tdap) [facility] Start: 08-28-2016 End: 08-28-[address] [facility] Work Phone: Start: 02-15-2015 PNEUMOCOCCAL (2 - PCV) PNEUMOCOCCAL (2 - PCV) [facility] Start: 02-15-2015 Pneumococcal vaccination Pneumococcal Vaccine (2 - PCV) [facility] Start: 07-17-1998 Hepatitis B Vaccine (1 of 3 - 19+ 3-dose series) Hepatitis B Vaccine (1 of 3 - 19+ 3-dose series) [facility] Start: 07-17-1997 Anxiety Screening Anxiety Screening [facility] Start: 07-17-1997 Depression Screening Depression Scre ening [facility] Start: 07-17-1997 HEPATITIS C SCREENING HEPATITIS C [facility] Start: 07-17-1997 Hepatitis C screening Hepatitis C [facility] Start: 07-17-1997 HIV SCREENING HIV SCREENING [facility] Start: 07-17-1997 HIV screening HIV Screening [facility] Start: 1991 Adult depression screening assessment DEPRESSION SCREENING [facility] Start: 1979 HEPATITIS B (1 of 3 - 3-dose series) HEPATITIS B (1 of 3 - 3-dose series) [facility] Start: 1979 Hepatitis B Vaccine (1 of 3 - 3-dose series) Hepatitis B Vaccine (1 of 3 - 3-dose series) [facility] Bacteria identified in Wound by Culture BACTERIAL CULTURE AND GRAM STAIN, ABSCESS AND WOUND (AEROBIC CULTURE) Microbiology Routine Abscess of right breast Ordered: 09/13/2024 [facility] Work Phone: Comment on above: Ordered: 09/13/2024 End: 03-01-2025 DBT Breast - bilateral screening SUSU SCREENING W RINA Radiology Routine Encounter for screening mammogram for malignant neoplasm of breast 1 Occurrences starting 01/31/2024 until 03/01/2025 [facility] Work Phone: Comment on above: 1 Occurrences starti ng 01/31/2024 until 03/01/2025 Influenza virus A an d B RNA and SARS-CoV-2 (COVID-19) N gene panel - Respiratory specimen by JACKIE with probe detection COVID WITH FLUA+B, ROUTINE Microbiology Routine Viral illness Ordered: 07/29/2021 [facility] Work Phone: Comment on above: Ordered: 07/29/2021 End: 04-07-2024 SUSU SCREENING W RINA SUSU SCREENING W RINA Radiology Routine Encounter for screening mammogram for breast cancer 1 Occurrences starting 03/09/2023 until 04/07/2024 [facility] Work Phone: Comment on above: 1 Occurrences starti ng 03/09/2023 until 04/07/2024 PAP TEST PAP TEST Lab [facility] Screening for cervical cancer Encounter for screening for human papillomavirus (HPV) 03/09/2023 9:57 AM EST [facility] Work Phone: Patient Education [facility] Work Phone: Patient referral [facility] Work Phone: End: 02-06-2023 Screening mammography bi 2-view breast inc cad SUSU SCREENING Radiology Routine Encounter for screening mammogram for breast cancer 1 Occurrences starting 01/07/2022 until 02/06/2023 [facility] Work Phone: Comment on above: 1 Occurrences starti ng 01/07/2022 until 02/06/2023 [facility] Immunizations Immunization Date Immunization Notes Care Provider Akash cowan 04-02-2023 influenza, injectabl e, quadrivalent, contains preservative Gisel Keller APRN.[employer] Work Phone: [facility] 04-02-2023 pneumococcal conjuga te (PCV20) vaccine, 20 valent (PREVNAR 20) Gisel Keller APRN.[employer] Work Phone: [facility] 04-02-2023 influenza virus vacc ine, unspecified formulation Xr [place] Work Phone: [facility] 06-20-2019 tetanus and diphther ia toxoids, adsorbed, preservative free, for adult use (5 Lf of tetanus toxoid and 2 Lf of diphtheria toxoid) Leonardo Cristina APRN.[employer] Work Phone: [facility] 03-30-2016 influenza virus vacc ine, unspecified formulation Ester aVliente MD Work Phone: [facility] 02-15-2014 influenza, seasonal, injectable Leonardo Cristina APRN.[employer] Work Phone: [facility] 02-15-2014 pneumococcal polysaccharide vaccine, 23 valent Leonardo Cristina APRN.[employer] Work Phone: [facility] Payers Date Payer Category Payer Self-pay [id number] 2012 Unknown [employer] [id number] 2012 Unknown [employer] [id number] 2011 Medicaid [employer]ICA[employer] [id number] 2011-Present [phone] [address] [place] [address] Medicaid [id number] 2011 Medicaid [id number] Unknown [id number] Unknown [id number] Social History Date Type Detail Facility Start: 07-11-1994 End: 04-10-2024 Tobacco smoking status NHIS Smokes tobacco daily [facility] Work Phone: Start: 07-11-1994 History of tobacco use Cigarette Smo ker [facility] Work Phone: Start: 01-26-2012 End: 03-09-2023 Cigarettes smoked current (pack per day) - Reported 1 [facility] Start: 01-26-2012 End: 04-10-2024 Tobacco use and exposure Smokeless tobacco non-user [facility] Work Phone: Start: 07-29-2021 End: 09-13-2024 Alcohol intake Current drinker of alcohol (finding) [facility] Start: 02-28-2020 History SDOH Alcohol Frequency 4 [facility] Start: 02-28-2020 History SDOH Alcohol Std Drinks 2 [facility] Start: 06-20-2019 History SDOH Alcohol Comment twisted teas [facility] Start: 1980 Sex Assigned At Not on file C [facility] Start: 07-19-2021 End: 12-03-2021 Exposure to SARS-CoV-2 (event) Not sure [facility] Start: 03-06-2022 End: 03-16-2022 Exposure to SARS-CoV-2 (event) Yes [facility] Start: 05-25-2018 Tobacco smoking stat us NHIS Unknown if ever smoked [facility] Start: 1980 Sex Assigned At Female W [facility] Start: 02-28-2020 End: 03-09-2023 Alcohol Use Disorder Identification Test - Consumption [AUDIT-C] [facility] How often to you hav e a drink containing alcohol? 2-3 time week [facility] How many standard dr inks containing alcohol do you have on a typical day? 3 or 4 [facility] Frequency of Binge Drinking Not on file [facility] Work Phone: Has the [employer], or [place] threatened to shut off services in your home in past 12Mo No [facility] Are you now , , , , never or living with a partner? Never [facility] How often do you hav e 6 or more drinks on 1 occasion? Never [facility] How hard is it for y ou to pay for the very basics like food, housing, medical care, and heating Somewhat hard [facility] Do you feel stress - tense, restless, nervous, or anxious, or unable to sleep at night because your mind is troubled all the time - these days [OSQ] Only a little [facility] (I/We) worried wheth er (my/our) food would run out before (I/we) got money to buy more. Never true [facility] Functional Status Date Assessment Result Facility 09-11-2024 Total score [AUDIT-C] 4 09/12/19 8:13 PM EDT User, Og [facility] 09-11-2024 How often to you hav e a drink containing alcohol? 2-3 times a week 09/11/2024 8:13 PM EDT User, Og 2-3 time [facility] 09-11-[address] inks containing alcohol do you have on a typical day? 3 or 4 09/11/2024 8:13 PM EDT User, Tahminat 3 or 4 [facility] 09-11-2024 How often do you hav e 6 or more drinks on 1 occasion? Never 09/11/2024 8:13 PM EDT Og Chen Rosy [facility] 07-25-2014 Are you deaf, or do you have serious difficulty hearing No 07/25/2014 10:19 AM Abdiel Pink [facility] 07-25-2014 Are you blind, or do you have serious difficulty seeing, even when wearing glasses No 07/25/2014 10:19 AM Abdiel Pink [facility] 07-25-2014 Do you have serious difficulty walking or climbing stairs No 07/25/2014 10:19 AM Abdiel Pink [facility] 07-25-2014 Do you have difficul ty dressing or bathing No 07/25/2014 10:19 AM Abdiel Pink [facility] 07-25-2014 Because of a physica l, mental, or emotional condition, do you have difficulty doing errands alone such as visiting a physician's office or shopping No 07/25/2014 10:19 AM Abdiel Pink [facility] Mental Status Date Assessment Result Facility 09-14-2024 Cognitive function Level Of Cons ciousness Awake;Alert;Appropriate;Fol lows Commands [facility] Work Phone: 07-25-2014 Because of a physica l, mental, or emotional condition, do you have serious difficulty concentrating, remembering, or making decisions No 07/25/2014 10:19 AM Abdiel Pink [facility] Clinical Notes 07-29-2021 to 02-15-2025 Issa Chapin MD - 10/25/2024 9:53 AM Essence Bryan APRN.CNP - 09/25/2024 8:30 AM EDTPatient Mercy Edgar MD - 09/18/2024 8:53 AM EDTPatient Instructions Note Date & Type Note Facility 02-15-2025 Note HNO ID: [id number] Author: SETER GRAY MD Service: ? Author Type: Physician Type: Progress Notes Filed: 02/15/2025 14:52 Note Text: Marketing Lead offered: Patient declines. Emma is a 44 year old who presents for an annual gynecologic exam without complaints. Went to beach this summer. Still gets boils under breasts but doing better with using tea tree oil . Has some night sweats but taking Magnesium has helped. 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 LAPAROSCOPY SURG CHOLECYSTECTOMY 07/13/2014 FAMILY HISTORY Problem Relation Age of Onset Diabetes Mother Stroke Father other (ETOH) Sister No Known Problems Brother Heart Maternal Grandfather [place] Allergies Maternal Grandfather No Known Problems Daughter SOCIAL HISTORY Social History Tobacco Use Smoking status: Every Day Current packs/day: 1.00 Average packs/day: 1 pack/day for 30.6 years (30.6 ttl pk-yrs) Types: Cigarettes Start date: 07/11/1994 Smokeless tobacco: Never Vaping Use Vaping status: Never Used Substance Use Topics Alcohol use: Yes Alcohol/week: 8.0 standard drinks of alcohol Types: 8 Standard drinks or equivalent per week Drug use: Yes Types: Marijuana Comment: periodically REVIEW OF SYSTEMS Abdomen: No abdominal pain, nausea, vomiting, or constipation. Has some diarrhea after gallbladder removal. No bloating, early satiety, indigestion, or increased flatulence. Bladder: No dysuria, gross hematuria, urinary frequency, urinary urgency, or incontinence. Breast: No breast lumps, nipple d/c, overlying skin changes, redness or skin retraction. Allergies and current medication updated:Yes SENSITIVE EXAM: The sensitive examination was discussed with the Patient or Patient's Authorized Network Intelligence Analyst. As applicable, any other physician, advance practice provider, medical student, or other health professional student that will be observing or involved in the sensitive examination for educational or training purposes was discussed with the Patient or Authorized Network Intelligence Analyst. The Patient or Authorized Network Intelligence Analyst has agreed to proceed with the sensitive examination. (Sensitive examination includes inspection and/or palpation of the breasts, pelvis, prostate and anorectal regions). EXAM: BP 122/72 Ht 5' 8 (1.73m) Wt 208 lb (94.3kg) LMP 01/25/2025 BMI 31.63 kg/(m2). GENERAL: pleasant, female in no apparent distress HEENT: Normocephalic, atraumatic, mucus membranes moist, and no lesions NECK: Supple, full range of motion, no adenopathy, and thyroid normal DERMATOLOGY: Normal, without lesions, non-icteric, and non-hirsute BREAST: soft, non-tender, symmetric, no dominant mass, normal nipple-areolar complex, no lymphadenopathy, and no nipple discharge CHEST: Normal inspiratory effort ABDOMEN: soft, non-tender, and no masses PELVIC: external genitalia normal, normal Bartholin's glands, urethra, Farnham's glands, no vulvar lesions, no cervical lesions, good vaginal support, physiologic discharge present, normal appearing perineal body and perianal region BIMANUAL: uterus normal size, shape and consistency, no adnexal masses, and non-tender RECTOVAGINAL: deferred. NEURO: alert and oriented x3,exam grossly non-focal EXTREMITIES: normal ASSESSMENT/PLAN: 1) Health maintenance: Pap/HPV up to date. Mammogram starting age up to date- ordered Nutrition, exercise and routine health maintenance exams reviewed. Colon cancer screening: colonoscopy ordered 2) Contraception: condoms. Contraceptive options reviewed and information provided. 3) STD screening: Declined STI check. 4) Follow up one year or sooner as needed 5) HRT and progesterone IUD/POP reviewed Ester Carter MD [facility] 10-25-2024 Note HNO ID: [id number] Author: ISSA CHAPIN MD Service: ? Author Type: Physician Type: Progress Notes Filed: 10/25/2024 10:00 Note Text: [facility] [place] [facility] is a 44 year old female. Patient presents with: Derm Problem: Previous cyst site opened up, under right breast Patient reports history of right breast abscess status post incision and drainage at the end of August. Has been healing without incident until last night she noticed a spot that looked like it was opening up. There is slight burning/sharp pain associated with the opening. She denies any swelling, deeper pain or fluctuance, drainage, fever, malaise. She has applied gauze without any other treatment. Review of Systems Objective BP 110/76 Pulse 95 Temp 37.2 ?C (99 ?F) Resp 18 Wt 92.8 kg (204 lb 9.4 oz) LMP 09/25/2024 (Exact Date) SpO2 99% BMI 32.04 kg/m? SENSITIVE EXAMINATION CONSENT: The sensitive examination was discussed with the Patient or Patient's Authorized Network Intelligence Analyst. As applicable, any other physician, advance practice provider, medical student, or other health professional student that will be observing or involved in the sensitive examination for educational or training purposes was discussed with the Patient or Authorized Network Intelligence Analyst. The Patient or Authorized Network Intelligence Analyst has agreed to proceed with the sensitive examination. Marketing Lead present for exam. Physical Exam Constitutional: General: She is not in acute distress. Chest: Comments: 3cm pink area of scarring on the inferior right breast near the chest wall. There is a <1cm semi-circular superficial fissure without dehiscence. No erythema, induration, fluctuance, or drainage on dressing. Neurological: Mental Status: She is alert. {ASSESSMENT/PLAN: 1. Wound check, abscess - ICD9: V58.89, ICD10: Z51.89 (primary diagnosis) 2. Breast pain - ICD9: 611.71, ICD10: N64.4 Patient is reassured that there are no signs of infection or dehiscence of the wound. Continue to monitor and follow up with signs of infection such as increasing redness, pain, swelling, purulent drainage, or fever/malaise. Issa Chapin MD Differential Diagnoses - Healing wound site Procedures [facility] 10-25-2024 History of Presen t illness Narrative [facility] is a 44 year old female. Patient presents with: Derm Problem: Previous cyst site opened up, under right breast Patient reports history of right breast abscess status post incision and drainage at the end of August. Has been healing without incident until last night she noticed a spot that looked like it was opening up. There is slight burning/sharp pain associated with the opening. She denies any swelling, deeper pain or fluctuance, drainage, fever, malaise. She has applied gauze without any other treatment. Review of Systems Objective BP 110/76 Pulse 95 Temp 37.2 C (99 F) Resp 18 Wt 92.8 kg (204 lb 9.4 oz) LMP 09/25/2024 (Exact Date) SpO2 99% BMI 32.04 kg/m SENSITIVE EXAMINATION CONSENT: The sensitive examination was discussed with the Patient or Patient's Authorized Network Intelligence Analyst. As applicable, any other physician, advance practice provider, medical student, or other health professional student that will be observing or involved in the sensitive examination for educational or training purposes was discussed with the Patient or Authorized Network Intelligence Analyst. The Patient or Authorized Network Intelligence Analyst has agreed to proceed with the sensitive examination. Marketing Lead present for exam. Physical Exam Constitutional: General: She is not in acute distress. Chest: Comments: 3cm pink area of scarring on the inferior right breast near the chest wall. There is a <1cm semi-circular superficial fissure without dehiscence. No erythema, induration, fluctuance, or drainage on dressing. Neurological: Mental Status: She is alert. {ASSESSMENT/PLAN: 1. Wound check, abscess - ICD9: V58.89, ICD10: Z51.89 (primary diagnosis) 2. Breast pain - ICD9: 611.71, ICD10: N64.4 Patient is reassured that there are no signs of infection or dehiscence of the wound. Continue to monitor and follow up with signs of infection such as increasing redness, pain, swelling, purulent drainage, or fever/malaise. Issa Chapin MD Differential Diagnoses - Healing wound site Procedures documented in this encounter [facility] 09-25-2024 History of Presen t illness Narrative POST OP Emma Bazan : 1980 HISTORY: Emma Bazan is a 44 year old female who presents for follow up, I&D of right breast abscess with Dr. Castillo & myself on 09/14/35. The surgical site is healing without difficulty. Emma Bazan has no complaints. She feels her breast is healing well. She denies concerns of infections. She does note she was having worsening complaints of her infected fingernail after her I&D- she presented to the ED and was started/ completed a course of clindamycin. Pathology was discussed with the patient: Few Actinomyces neuii ssp. neuii Abnormal -treatment for mild dx is doxycycline. PAST MEDICAL HISTORY: PAST MEDICAL HISTORY Diagnosis Date Marijuana use Obesity Onychomycosis Paronychia of right thumb Tobacco use disorder ACTIVE PROBLEM LIST Tobacco Abuse Obesity, Class I, Bmi 30-34.9 Marijuana Use PAST SURGICAL HISTORY Procedure Laterality Date INCISION AND DRAINAGE Right 09/13/2024 Incision and drainage of abscess of right breast. LAPAROSCOPY SURG CHOLECYSTECTOMY 07/13/2014 MEDICATIONS: Current Outpatient Medications Medication Sig clindamycin (CLEOCIN) 300 mg capsule Take 300 mg by mouth four times daily. X 10 days MULTIVITAMIN ORAL Take by mouth once daily. No current facility-administered medications for this visit. ALLERGIES: Patient has no known allergies. PHYSICAL EXAMINATION: GENERAL: Patient is a well appearing, well nourished, and pleasant, female alert and oriented, NAD. Temp: 36.7 C (98.1 F) Temp src: Temporal SKIN: Right breast with a healing open wound, good red granulation tissue. There is no erythema, purulence or fluctuance around the site. ASSESSMENT AND PLAN: 1) Right breast abscess s/p I&D - the surgical site is healing without signs of infection - pathology result was discussed with the patient Return to clinic as needed. Essence Obrien APRN.GHASSAN documented in this encounter [facility] 09-25-2024 Note HNO ID: [id number] Author: ESSENCE OBRIEN APRN.GHASSAN Service: ? Author Type: Nurse Practitioner Type: Progress Notes Filed: 09/25/2024 08:37 Note Text: POST OP Emma Bazan : 1980 HISTORY: Emma Bazan is a 44 year old female who presents for follow up, IANDD of right breast abscess with Dr. Castillo AND myself on 09/14/35. The surgical site is healing without difficulty. Emma Bazan has no complaints. She feels her breast is healing well. She denies concerns of infections. She does note she was having worsening complaints of her infected fingernail after her IANDD- she presented to the ED and was started/ completed a course of clindamycin. Pathology was discussed with the patient: Few Actinomyces neuii ssp. neuii Abnormal -treatment for mild dx is doxycycline. PAST MEDICAL HISTORY: PAST MEDICAL HISTORY Diagnosis Date Marijuana use Obesity Onychomycosis Paronychia of right thumb Tobacco use disorder ACTIVE PROBLEM LIST Tobacco Abuse Obesity, Class I, Bmi 30-34.9 Marijuana Use PAST SURGICAL HISTORY Procedure Laterality Date INCISION AND DRAINAGE Right 09/13/2024 Incision and drainage of abscess of right breast. LAPAROSCOPY SURG CHOLECYSTECTOMY 07/13/2014 MEDICATIONS: Current Outpatient Medications Medication Sig clindamycin (CLEOCIN) 300 mg capsule Take 300 mg by mouth four times daily. X 10 days MULTIVITAMIN ORAL Take by mouth once daily. No current facility-administered medications for this visit. ALLERGIES: Patient has no known allergies. PHYSICAL EXAMINATION: GENERAL: Patient is a well appearing, well nourished, and pleasant, female alert and oriented, NAD. Temp: 36.7 ?C (98.1 ?F) Temp src: Temporal SKIN: Right breast with a healing open wound, good red granulation tissue. There is no erythema, purulence or fluctuance around the site. ASSESSMENT AND PLAN: 1) Right breast abscess s/p IANDD - the surgical site is healing without signs of infection - pathology result was discussed with the patient Return to clinic as needed. Essence Obrien APRN.GHASSAN [facility] 09-18-2024 Instructions Mercy Torres MD - 09/18/2024 9:16 AM EDT - Finish the full 10-day course of clindamycin for your thumb infection; you have five days remaining. - Keep your thumb covered with a clean Band-Aid, wear gloves when washing dishes, and continue soaking it as you ve been doing. - For the right breast incision, use non-stick gauze pads and wash gently with a mild soap like Dial or Dove; the packing has already been removed. - Change both dressings regularly and monitor for any new redness, swelling, fever, increased pain, or drainage. - Maintain normal hygiene by bathing regularly with Dial or Dove soap to keep skin clean. - If you notice signs of infection or if symptoms worsen, contact our office--and if it becomes severe, return to the hospital as you did before. - If you develop additional sebaceous cysts in the future, let us know so we can consider a dermatology referral to discuss preventive options. - Plan to return for your routine one-year checkup unless you need care sooner. documented in this encounter [facility] 09-18-2024 Note HNO ID: [id number] Author: MERCY TORRES MD Service: ? Author Type: Physician Type: Progress Notes Filed: 09/18/2024 09:17 Note Text: Chief Complaint Patient presents with: Follow Up: Right thumb Breast Problem: Right- patient wanting PCP to check area that had IANDD Recording using [employer] software for draft documentation of the visit was discussed with the patient/authorized containers sales representative; all questions welcomed and answered. Patient/authorized containers sales representative agreed to proceed HPI Emma Bazan is a 44 year old female who presents here today for Above Complaints.. Thumb Infection: - Initially seen for thumb infection, later worsened with increased swelling and redness, prompting an ER visit on at 0400 to [facility]. - ER visit led to a change in antibiotics from doxycycline to clindamycin. - Currently on clindamycin, with 5 days remaining in a 10-day course; denies side effects. - Reports significant improvement in redness and swelling. - Keeps the thumb covered with a Band-Aid and wears gloves during cleaning or dishwashing. - Continues to soak the thumb; denies fevers or chills. Right Breast Abscess: - Underwent IANDD for a right breast abscess on September 13. - Describes the procedure as rough, resulting in significant bruising the next morning. - Packing was removed after one day; currently using non-stick gauze pads and washing with Dial soap. - Reports minimal drainage; denies bleeding. - Follow-up appointment scheduled for the . - Family history of sebaceous cysts in mother and brother. - Previous cysts in the axillary and groin areas, currently resolved. Past medical history, appointments, medications, allergies reviewed. Previous Medical History PAST MEDICAL HISTORY Diagnosis Date Marijuana use Obesity Onychomycosis Paronychia of right thumb Tobacco use disorder Previous Surgical History PAST SURGICAL HISTORY Procedure Laterality Date LAPAROSCOPY SURG CHOLECYSTECTOMY 07/13/14 Family History FAMILY HISTORY Problem Relation Age of Onset Diabetes Mother Stroke Father other (ETOH) Sister No Known Problems Brother Heart Maternal Grandfather [place] Allergies Maternal Grandfather No Known Problems Daughter Patient Allergies ALLERGIES No Known Allergies Current Medications Current Outpatient Medications on File Prior to Visit Medication Sig clindamycin (CLEOCIN) 300 mg capsule Take 300 mg by mouth four times daily. X 10 days MULTIVITAMIN ORAL Take by mouth. No current facility-administered medications on file prior to visit. Social History Social History Tobacco Use Smoking status: Every Day Current packs/day: 1.00 Average packs/day: 1 pack/day for 30.2 years (30.2 ttl pk-yrs) Types: Cigarettes Start date: 07/11/1994 Smokeless tobacco: Never Vaping Use Vaping status: Never Used Substance Use Topics Alcohol use: Yes Alcohol/week: 8.0 standard drinks of alcohol Types: 8 Standard drinks or equivalent per week Drug use: Yes Types: Marijuana Comment: periodically Review of Symptoms REVIEW OF SYSTEMS GENERAL: No weight loss, malaise or fevers RESPIRATORY: Negative for cough, hemoptysis, wheezing, COPD, dyspnea or shortness of breath CARDIOVASCULAR: Negative for chest pain, leg swelling, hypertension, CHF or palpitations SKIN: See HPI EXAM: BP 116/74 Pulse 100 Temp 36.3 ?C (97.4 ?F) Resp 16 Wt 93.8 kg (206 lb 12.8 oz) LMP 06/05/2023 (Exact Date) SpO2 99% BMI 32.39 kg/m? General Appearance: Well appearing, alert, in no acute distress, well-hydrated, well nourished.. Skin: skin around right thumb nail appears healthy without erythema, swelling, or drainage. S/p IANDD of right breast abscess with unroofing with shallow ulceration with granulation tissue. No surrounding erythema, bleeding, or purulent drainage. Noted scant serous drainage. Healing well. Musculoskeletal: No joint swelling, deformity, or tenderness. Health Maintenance List Depression Screening Never done Anxiety Screening Never done Colorectal Cancer Screening Never done Hepatitis B Vaccine(1 of 3 - 19+ 3-dose series) due on 09/13/2025 Covid-19 Vaccine( season) due on 09/13/2025 Influenza Vaccine(Season Ended) due on 12/18/2024 Mammogram Screening due on 09/07/2025 Diabetes Screening due on 09/14/2027 Cervical Cancer Screening due on 03/09/2028 DTaP,Tdap,Td Vaccine(3 - Td or Tdap) due on 06/19/2029 Lipid Screening due on 09/13/2029 Pneumococcal Vaccine Completed Hepatitis C Screening Discontinued HIV Screening Discontinued 1. Paronychia of right thumb (L03.011) - Significant improvement noted; erythema and edema have resolved. - Transitioned from doxycycline to clindamycin by [facility]; no adverse effects reported. - Continue clindamycin for the remaining 5 days to complete the 10-day course. - Advised to maintain wound hygiene with regular dressing changes (more content not included)... [facility] 09-18-2024 History of Presen t illness Narrative Chief Complaint Patient presents with: Follow Up: Right thumb Breast Problem: Right- patient wanting PCP to check area that had I&D Recording using [employer] software for draft documentation of the visit was discussed with the patient/authorized containers sales representative; all questions welcomed and answered. Patient/authorized containers sales representative agreed to proceed HPI Emma Bazan is a 44 year old female who presents here today for Above Complaints.. Thumb Infection: - Initially seen for thumb infection, later worsened with increased swelling and redness, prompting an ER visit on at 0400 to [facility]. - ER visit led to a change in antibiotics from doxycycline to clindamycin. - Currently on clindamycin, with 5 days remaining in a 10-day course; denies side effects. - Reports significant improvement in redness and swelling. - Keeps the thumb covered with a Band-Aid and wears gloves during cleaning or dishwashing. - Continues to soak the thumb; denies fevers or chills. Right Breast Abscess: - Underwent I&D for a right breast abscess on September 13. - Describes the procedure as rough, resulting in significant bruising the next morning. - Packing was removed after one day; currently using non-stick gauze pads and washing with Dial soap. - Reports minimal drainage; denies bleeding. - Follow-up appointment scheduled for the . - Family history of sebaceous cysts in mother and brother. - Previous cysts in the axillary and groin areas, currently resolved. Past medical history, appointments, medications, allergies reviewed. Previous Medical History PAST MEDICAL HISTORY Diagnosis Date Marijuana use Obesity Onychomycosis Paronychia of right thumb Tobacco use disorder Previous Surgical History PAST SURGICAL HISTORY Procedure Laterality Date LAPAROSCOPY SURG CHOLECYSTECTOMY 07/13/14 Family History FAMILY HISTORY Problem Relation Age of Onset Diabetes Mother Stroke Father other (ETOH) Sister No Known Problems Brother Heart Maternal Grandfather [place] Allergies Maternal Grandfather No Known Problems Daughter Patient Allergies ALLERGIES No Known Allergies Current Medications Current Outpatient Medications on File Prior to Visit Medication Sig clindamycin (CLEOCIN) 300 mg capsule Take 300 mg by mouth four times daily. X 10 days MULTIVITAMIN ORAL Take by mouth. No current facility-administered medications on file prior to visit. Social History Social History Tobacco Use Smoking status: Every Day Current packs/day: 1.00 Average packs/day: 1 pack/day for 30.2 years (30.2 ttl pk-yrs) Types: Cigarettes Start date: 07/11/1994 Smokeless tobacco: Never Vaping Use Vaping status: Never Used Substance Use Topics Alcohol use: Yes Alcohol/week: 8.0 standard drinks of alcohol Types: 8 Standard drinks or equivalent per week Drug use: Yes Types: Marijuana Comment: periodically Review of Symptoms REVIEW OF SYSTEMS GENERAL: No weight loss, malaise or fevers RESPIRATORY: Negative for cough, hemoptysis, wheezing, COPD, dyspnea or shortness of breath CARDIOVASCULAR: Negative for chest pain, leg swelling, hypertension, CHF or palpitations SKIN: See HPI EXAM: BP 116/74 Pulse 100 Temp 36.3 C (97.4 F) Resp 16 Wt 93.8 kg (206 lb 12.8 oz) LMP 06/05/2023 (Exact Date) SpO2 99% BMI 32.39 kg/m General Appearance: Well appearing, alert, in no acute distress, well-hydrated, well nourished.. Skin: skin around right thumb nail appears healthy without erythema, swelling, or drainage. S/p I&D of right breast abscess with unroofing with shallow ulceration with granulation tissue. No surrounding erythema, bleeding, or purulent drainage. Noted scant serous drainage. Healing well. Musculoskeletal: No joint swelling, deformity, or tenderness. Health Maintenance List Depression Screening Never done Anxiety Screening Never done Colorectal Cancer Screening Never done Hepatitis B Vaccine(1 of 3 - 19+ 3-dose series) due on 09/13/2025 Covid-19 Vaccine( - 2023- season) due on 09/13/2025 Influenza Vaccine(Season Ended) due on 12/18/2024 Mammogram Screening due on 09/07/2025 Diabetes Screening due on 09/14/2027 Cervical Cancer Screening due on 03/09/2028 DTaP,Tdap,Td Vaccine(3 - Td or Tdap) due on 06/19/2029 Lipid Screening due on 09/13/2029 Pneumococcal Vaccine Completed Hepatitis C Screening Discontinued HIV Screening Discontinued 1. Paronychia of right thumb (L03.011) - Significant improvement noted; erythema and edema have resolved. - Transitioned from doxycycline to clindamycin by [facility]; no adverse effects reported. - Continue clindamycin for the remaining 5 days to complete the 10-day course. - Advised to maintain wound hygiene with regular dressing changes and protective measures during exposure to water. - Monitor for any signs of recurrence or complications; instructed to seek immediate medical attention if severe symptoms develop. 2. Abscess of right breast (N61.1) - Incision and drainage performed on September 13; site healing well with minimal serous discharge and no signs of infection. - Continue using non-stick gauze pads and cleansing with Dial soap. - Follow-up appointment scheduled for the . - Educated on the nature of sebaceous cysts and the importance of maintaining good hygiene to prevent recurrence. - Recommended Dove soap for its moisturizing properties. - Discussed potential referral to dermatology if recurrent cysts develop. Mercy Torres MD documented in this encounter [facility] 09-15-2024 Telephone encounter Note Patient calls and notified of results and providers instructions. Patient verbalizes understanding. Aparna Cristobal RN [facility] 09-15-2024 Miscellaneous Notes Patient calls and notified of results and providers instructions. Patient verbalizes understanding. Aparna Cristobal RN VM left for patient to return call. Hyacinth Gil LPN ----- Message from Mercy Torres MD sent at 09/14/2024 9:42 AM EDT ----- Normal labs aside from high triglycerides and mild elevation in WBC consistent with mild infection 2/2 breast abscess. Recommend low cholesterol diet. Continue abx as prescribed. Patient already seen by general surgery yesterday for I&D. Keep appointment with them in 2 weeks as recommended. documented in this encounter [facility] 09-15-2024 Telephone encounter Note VM left for patient to return call. Hyacinth Gil LPN [facility] 09-15-2024 Telephone encounter Note ----- Message from Mercy Torres MD sent at 09/14/2024 9:42 AM EDT ----- Normal labs aside from high triglycerides and mild elevation in WBC consistent with mild infection 2/2 breast abscess. Recommend low cholesterol diet. Continue abx as prescribed. Patient already seen by general surgery yesterday for I&D. Keep appointment with them in 2 weeks as recommended. [facility] 09-14-2024 Radiology Diagnostic study note [facility] Imaging Services [address] [place], [place] [id number] Hand Min 3 Views MR#: [id number] Acct: [id number] Name: EMMA BAZAN Rep #: [id number] : 1980 F 44 From: [place] Scott MD PCP: Dr. Noah Torres MD Status: REG ER Study:Hand Min 3 Views Date of Exam: Exam# [id number] Ordering Dr: Brittany Paz DO PROCEDURE: HAND MIN 3 VIEWS 09/14/2024 REASON FOR EXAM: ? OSTEOMYELITIS OF THUMB TECHNIQUE: 3 view(s) of the right hand COMPARISON: None available FINDINGS: No fracture or dislocation. The joint spaces appear within limits. No osseous destruction, sclerosis or periosteal reaction identified. No radiopaque foreign body seen. The soft tissues appear within limits. RAD/Hand Min 3 Views IMPRESSION: Study appears within limits. Reading Location: [id number] CC: Dr. Noah Torres MD; Asad Paz DO ~ Manager Distribution Center: Signed [facility] 09-14-2024 Hospital Discharg e instructions Additional Instructions Your x-ray does not show any signs of bone infection and your exam indicates you now have cellulitis which is a soft tissue skin infection and this is most likely because the bacteria is resistant to the doxycycline. Therefore please stop the doxycycline and begin taking the clindamycin. Will typically take 2 to 3 days to notice symptom improvement. If you spike a fever or notice streaking down the hand towards the arm or have any further concerns please return to the ER for repeat evaluation [facility] Work Phone: 09-13-2024 Note Addended by: ESSENCE OBRIEN on: 09/13/2024 04:23 PM Modules accepted: Orders [facility] 09-13-2024 Miscellaneous Notes Addended by: ESSENCE OBRIEN on: 09/13/2024 04:23 PM Modules accepted: Orders Addended by: HAZEL SALINAS on: 09/13/2024 04:18 PM Modules accepted: Orders documented in this encounter [facility] 09-13-2024 Note Addended by: HAZEL SALINAS on: 09/13/2024 04:18 PM Modules accepted: Orders [facility] 09-13-2024 Instructions Hazel Salinas MA - 09/13/2024 2:48 PM EDT The following instructions are important for you related to your office visit today with the [facility] General Surgeons. Instructions After I & D You are instructed to remove packing tomorrow and cover with bandaid. If the dressing becomes soaked or had significant drainage, the dressing should be changed. If there is minor bleeding from this skin edge, you should hold pressure on the incision. If there is continued bleeding, you should contact our office immediately. Wash the wound with gentle soap and water. You may shower. The wound should not be immersed in a pool, bathtub, or even hot tub. If the wound shows signs of redness, inflammation, or purulent drainage, you should contact our office immediately. If you note any additional difficulties, questions, or concerns, you should contact our office immediately @ [phone] and ask to be transferred to the General Surgery department. documented in this encounter [facility] 09-13-2024 Note HNO ID: [id number] Author: HAZEL SALINAS MA Service: ? Author Type: Simulation Educator Type: Progress Notes Filed: 09/13/2024 15:53 Note Text: UNIVERSAL PROTOCOL / SAFETY CHECKLIST Procedure to be Performed: Incision and drainage of abscess of right breast. Sign In: A Moment of CARE was completed. Appropriate PPE (Personal Protective Equipment) worn by all providers involved with the procedure. Special equipment not required. Patient/Surrogate Stated/Verified: Patient name, Date of , Relevant allergies, and The intended procedure Time Out: Relevant labs, photos, and/or imaging studies have been reviewed. Intended patient and procedure match the source document(s) (e.g. consent, HANDP, associated studies [imaging, pathology]) are not applicable. Consent obtained and matches the intended procedure. Yes. Correct side/site is not applicable. Medications required for this procedure are verified. Fire risk assessed and is not applicable. Implants: are not applicable. Sign Out: Specimens are all correctly labeled and sent. All instruments, equipment, possible retained foreign bodies are accounted for. Yes. The post-procedure plan of care has been communicated to the patient or surrogate. [facility] 09-13-2024 History of Presen t illness Narrative UNIVERSAL PROTOCOL / SAFETY CHECKLIST Procedure to be Performed: Incision and drainage of abscess of right breast. Sign In: A Moment of CARE was completed. Appropriate PPE (Personal Protective Equipment) worn by all providers involved with the procedure. Special equipment not required. Patient/Surrogate Stated/Verified: Patient name, Date of , Relevant allergies, and The intended procedure Time Out: Relevant labs, photos, and/or imaging studies have been reviewed. Intended patient and procedure match the source document(s) (e.g. consent, H&P, associated studies [imaging, pathology]) are not applicable. Consent obtained and matches the intended procedure. Yes. Correct side/site is not applicable. Medications required for this procedure are verified. Fire risk assessed and is not applicable. Implants: are not applicable. Sign Out: Specimens are all correctly labeled and sent. All instruments, equipment, possible retained foreign bodies are accounted for. Yes. The post-procedure plan of care has been communicated to the patient or surrogate. 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 she denies a history of diabetes. She notes a hx of the same. The patient was seen by ER and was started on oral antibiotics (doxy) for infected thumb nail. SIGNIFICANT MEDICAL PROBLEMS: PAST MEDICAL HISTORY Diagnosis Date Marijuana use Obesity Onychomycosis Paronychia of right thumb Tobacco use disorder OPERATIONS: PAST SURGICAL HISTORY Procedure Laterality Date LAPAROSCOPY SURG CHOLECYSTECTOMY 07/13/14 CURRENT MEDICATIONS: Current Outpatient Medications Medication Sig Dispense Refill doxycycline hyclate (VIBRAMYCIN) 100 mg capsule Take 1 capsule by mouth two times a day for 3 days. 6 capsule 0 doxycycline (VIBRA-TABS) 100 mg tablet Take 1 tablet by mouth two times a day for 7 days. 14 tablet 0 MULTIVITAMIN ORAL Take by mouth. No current facility-administered medications for this visit. ALLERGIES: Patient has no known allergies. PERSONAL HISTORY: Social History Tobacco Use Smoking status: Every Day Current packs/day: 1.00 Average packs/day: 1 pack/day for 30.2 years (30.2 ttl pk-yrs) Types: Cigarettes Start date: 07/11/1994 Smokeless tobacco: Never Vaping Use Vaping status: Never Used Substance Use Topics Alcohol use: Yes Alcohol/week: 8.0 standard drinks of alcohol Types: 8 Standard drinks or equivalent per week Drug use: Yes Types: Marijuana Comment: periodically FAMILY HISTORY: FAMILY HISTORY Problem Relation Age of Onset Diabetes Mother Stroke Father other (ETOH) Sister No Known Problems Brother Heart Maternal Grandfather [place] Allergies Maternal Grandfather No Known Problems Daughter REVIEW OF SYMPTOMS: REVIEW OF SYSTEMS: General: The patient denies fatigue, denies weight loss, denies weight gain, denies feeling hot, and feelings of cold. Eyes: The patient denies glaucoma, denies eye injury/surgery, denies glasses or contacts. Ear/Nose/Throat: The patient denies allergies, denies hayfever, denies ear infections, and denies bloody noses. Cardiovascular: The patient denies chest pain, denies heart disease, denies high blood pressure, denies high cholesterol, and denies poor circulation. Respiratory: The patient denies tuberculosis, denies pneumonia, denies frequent cough, denies shortness of breath, and denies coughing up blood. Gastrointestinal: The patient denies difficulty swallowing, denies acid reflux, denies ulcers, denies jaundice/hepatitis, denies gallbladder problems, denies vomiting, denies black or tarry stools, denies hemorrhoids, denies bleeding from rectum, denies diverticulitis, denies constipation, denies diarrhea, denies loss of stool control, and denies hernias. Kidney/Bladder: The patient denies kidney stones, denies urine infections, and denies bloody urine. Skin: The patient denies a history of skin cancer, denies bleeding/changing moles, and denies a history of skin rash. Neurologic: The patient denies a history of epilepsy/convulsions, denies headaches, denies head/spinal injuries, and denies stroke/TIA. Psychiatric: The patient denies psychiatric medications, denies depression, and denies voices. Endocrine: The patient denies thyroid disorders, denies diabetes, and denies hormonal problems. Hematologic: The patient denies a history of bruising, denies bleeding, and denies anemia. Infections: The patient denies a history of measles and mumps, denies rheumatic fever, and denies sexually transmitted diseases. Musculoskeletal: The patient denies back pain/injury, denies back problems, denies sciatica, denies knee/foot trouble, denies arthritis, or denies gout. PHYSICAL EXAMINATION: General: The patient is 44 year old female, well nourished, well hydrated in no acute distress. The patient is oriented to time, place, and person. VITALS: Blood pressure 116/80, pulse 84, weight 94.8 kg (209 lb), last menstrual period 06/05/2023, SpO2 99%. Body mass index is 32.73 kg/m . HEENT: exam deferred Extremities: no clubbing, cyanosis or edema. No adenopathy. Other: Right breast abscess with fluctuance with overlying erythema and tenderness The skin overlying the point of maximal fluctance is viable. LABORATORY VALUES: As Noted RADIOLOGIC STUDIES: As Noted PROCEDURE: INCISION AND DRAINAGE OF right breast ABSCESS After consent was obtained and the site, person, and procedure verified, the patient`s skin was prepped and draped in the usual fashion. A combination of Lidocaine and Marcaine was injected into the skin. A linear incision was made over the point of maximal fluctuance. A minimal amount of purulent material was drained. The abscess was then unroofed. The cavity was packed with iodoform gauze. The patient tolerated the procedure well. Assessment IMPRESSION: STATUS POST INCISION AND DRAINAGE OF right breast ABSCESS PLAN: Emma is instructed to remove the packing in 1 days. Redress the wound with non-stick dressing daily until healed. If the dressing becomes soaked or had significant drainage, the dressing should be changed. If there is minor bleeding from this skin edge, the patient should hold pressure on the incision. If there is continued bleeding, the patient should contact our office immediately. The patient should wash the wound with gentle soap and water. she may shower. The wound should not be immersed in a pool, bathtub, or even hot tub. Diagnoses: (N61.1) Abscess of right breast (primary encounter diagnosis) Return to Clinic: The patient is instructed to follow-up with me in 2 weeks. The patient verbalized understanding of all above and agreed with the plan Essence Obrien APRN.GHASSAN documented in this encounter [facility] 09-13-2024 Note HNO ID: [id number] Author: ESSENCE OBRIEN APRN.GHASSAN Service: ? Author Type: Nurse Practitioner Type: Progress Notes Filed: 09/13/2024 15:53 Note Text: HISTORY AND PHYSICAL Emma Bazan 1980 REFERRING PHYSICIAN: Self CHIEF COMPLAINT: breast abscess HPI: Emma is a 44 year old female with a complaint of a right breast abscess X 1 week , denies purulent discharge from the abscess or fevers. she denies a history of diabetes. She notes a hx of the same. The patient was seen by ER and was started on oral antibiotics (doxy) for infected thumb nail. SIGNIFICANT MEDICAL PROBLEMS: PAST MEDICAL HISTORY Diagnosis Date Marijuana use Obesity Onychomycosis Paronychia of right thumb Tobacco use disorder OPERATIONS: PAST SURGICAL HISTORY Procedure Laterality Date LAPAROSCOPY SURG CHOLECYSTECTOMY 07/13/14 CURRENT MEDICATIONS: Current Outpatient Medications Medication Sig Dispense Refill doxycycline hyclate (VIBRAMYCIN) 100 mg capsule Take 1 capsule by mouth two times a day for 3 days. 6 capsule 0 doxycycline (VIBRA-TABS) 100 mg tablet Take 1 tablet by mouth two times a day for 7 days. 14 tablet 0 MULTIVITAMIN ORAL Take by mouth. No current facility-administered medications for this visit. ALLERGIES: Patient has no known allergies. PERSONAL HISTORY: Social History Tobacco Use Smoking status: Every Day Current packs/day: 1.00 Average packs/day: 1 pack/day for 30.2 years (30.2 ttl pk-yrs) Types: Cigarettes Start date: 07/11/1994 Smokeless tobacco: Never Vaping Use Vaping status: Never Used Substance Use Topics Alcohol use: Yes Alcohol/week: 8.0 standard drinks of alcohol Types: 8 Standard drinks or equivalent per week Drug use: Yes Types: Marijuana Comment: periodically FAMILY HISTORY: FAMILY HISTORY Problem Relation Age of Onset Diabetes Mother Stroke Father other (ETOH) Sister No Known Problems Brother Heart Maternal Grandfather [place] Allergies Maternal Grandfather No Known Problems Daughter REVIEW OF SYMPTOMS: REVIEW OF SYSTEMS: General: The patient denies fatigue, denies weight loss, denies weight gain, denies feeling hot, and feelings of cold. Eyes: The patient denies glaucoma, denies eye injury/surgery, denies glasses or contacts. Ear/Nose/Throat: The patient denies allergies, denies hayfever, denies ear infections, and denies bloody noses. Cardiovascular: The patient denies chest pain, denies heart disease, denies high blood pressure, denies high cholesterol, and denies poor circulation. Respiratory: The patient denies tuberculosis, denies pneumonia, denies frequent cough, denies shortness of breath, and denies coughing up blood. Gastrointestinal: The patient denies difficulty swallowing, denies acid reflux, denies ulcers, denies jaundice/hepatitis, denies gallbladder problems, denies vomiting, denies black or tarry stools, denies hemorrhoids, denies bleeding from rectum, denies diverticulitis, denies constipation, denies diarrhea, denies loss of stool control, and denies hernias. Kidney/Bladder: The patient denies kidney stones, denies urine infections, and denies bloody urine. Skin: The patient denies a history of skin cancer, denies bleeding/changing moles, and denies a history of skin rash. Neurologic: The patient denies a history of epilepsy/convulsions, denies headaches, denies head/spinal injuries, and denies stroke/TIA. Psychiatric: The patient denies psychiatric medications, denies depression, and denies voices. Endocrine: The patient denies thyroid disorders, denies diabetes, and denies hormonal problems. Hematologic: The patient denies a history of bruising, denies bleeding, and denies anemia. Infections: The patient denies a history of measles and mumps, denies rheumatic fever, and denies sexually transmitted diseases. Musculoskeletal: The patient denies back pain/injury, denies back problems, denies sciatica, denies knee/foot trouble, denies arthritis, or denies gout. PHYSICAL EXAMINATION: General: The patient is 44 year old female, well nourished, well hydrated in no acute distress. The patient is oriented to time, place, and person. VITALS: Blood pressure 116/80, pulse 84, weight 94.8 kg (209 lb), last menstrual period 06/05/2023, SpO2 99%. Body mass index is 32.73 kg/m?. HEENT: exam deferred Extremities: no clubbing, cyanosis or edema. No adenopathy. Other: Right breast abscess with fluctuance with overlying erythema and tenderness The skin overlying the point of maximal fluctance is viable. LABORATORY VALUES: As Noted RADIOLOGIC STUDIES: As Noted PROCEDURE: INCISION AND DRAINAGE OF right breast ABSCESS After consent was obtained and the site, person, and procedure verified, the patient`s skin was prepped and draped in the usual fashion. A combination of Lidocaine and Marcaine was injected into the skin. A linear incision was made over the point of maximal fluctuan (more content not included)... [facility] 09-13-2024 Instructions Mercy Torres MD - 09/13/2024 8:37 AM EDT - Continue your doxycycline as prescribed: finish the current 7-day course by Wednesday the , then start the additional 3-day refill sent to [facility] in [place]. - Continue warm water soaks of your right thumb 3-4 times a day for 10-15 minutes and keep it covered with gloves while working. - Watch for any signs of worsening infection--spreading redness, increased swelling, new pus, fever, or red streaks--and if these occur, go to the emergency department. - Follow up in our office on Wednesday to reassess your right thumb. - Keep the lab blood work drawn today (CBC, kidney/liver function, cholesterol, diabetes screen, thyroid) - Attend your surgical consultation for colonoscopy screening; a referral has been sent and the front desk monitor will help you schedule. - See Dr. Enciso for evaluation and drainage of the abscess under your right breast; the nurse will assist with that appointment. - Apply the [id number] Penlac (ciclopirox) antifungal paint to your toenails as directed on the package; it may take several months to see improvement. - Monitor for any new boils under your arms or in your groin; if lesions recur, return early for evaluation and possible dermatology referral. - If you choose to drink alcohol, limit intake to no more than one drink per day. - When you re ready to quit smoking, let us know--we can provide support with patches, gum, or medications. - Aim for 30 minutes of exercise (for example, on your exercise bike) 4-5 times per week and focus on lean proteins and vegetables to support your overall health. documented in this encounter [facility] 09-13-2024 Note HNO ID: [id number] Author: MERCY TORRES MD Service: ? Author Type: Physician Type: Progress Notes Filed: 09/13/2024 08:48 Note Text: Chief Complaint Patient presents with: ER F/U: [facility]-right thumb nail concerns- work excuse for today if possible. 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 Patient/authorized containers sales representative agreed to proceed HPI Emma Bazan is a 44 year old female who presents here today for ER Follow Up. Annual Wellness Exam: - Smokes <1 pack per day, x30 years; denies use of e-cigarettes or vaping. - Consumes 3-4 alcoholic drinks twice a week; occasional marijuana use. - Not currently sexually active; not using control. - Recent mammogram on 09/07 was negative. - Pap smear and HPV test in February 2023 were normal. Right Thumb Injury: - Evaluated in the ER at [facility] on 09/10 for right thumb pain and vertical discoloration of the nail. - Initially seen at urgent care and started on doxycycline on 09/09. - ER visit involved trephination of the nail and extraction of purulent material; advised to continue doxycycline and perform warm water soaks. - Currently taking doxycycline BID and performing warm water soaks 6-7 times a day for 10-15 minutes. - Reports increased soreness, pink discoloration, and a knot on the thumb. - No fever, chills, spreading redness, warmth, streaking, or additional purulent drainage. Boils: - Recurrent boils under the breasts, with one currently present under right breast and draining purulent material which started about 1 week ago. Does not think it is increasing in size or worsening since she has started the doxycycline. - Previous boils under the arms and on the inner thigh. - Using tea tree oil soap and draw out salve for treatment. - Had similar lesion under left breast drained by Dr. Enciso in the past. - Believes boils may be related to diabetes; mother has diabetes and was diagnosed around age 40. - History of prediabetes; attempted lifestyle changes with limited success due to dietary challenges with a picky child. Past medical history, appointments, medications, allergies reviewed. Previous Medical History PAST MEDICAL HISTORY Diagnosis Date Marijuana use Obesity Onychomycosis Paronychia of right thumb Tobacco use disorder Previous Surgical History PAST SURGICAL HISTORY Procedure Laterality Date LAPAROSCOPY SURG CHOLECYSTECTOMY 07/13/14 Family History FAMILY HISTORY Problem Relation Age of Onset Diabetes Mother Stroke Father other (ETOH) Sister No Known Problems Brother Heart Maternal Grandfather [place] Allergies Maternal Grandfather No Known Problems Daughter Patient Allergies ALLERGIES No Known Allergies Current Medications Current Outpatient Medications on File Prior to Visit Medication Sig doxycycline (VIBRA-TABS) 100 mg tablet Take 1 tablet by mouth two times a day for 7 days. MULTIVITAMIN ORAL Take by mouth. fluticasone (FLONASE) 50 mcg/actuation nasal spray Use 2 Sprays in each nostril once daily. Rinse mouth after use. (Patient not taking: Reported on 04/10/2024) acetaminophen 325 mg cap Take by mouth. (Patient not taking: Reported on 04/10/2024) No current facility-administered medications on file prior to visit. Social History Social History Tobacco Use Smoking status: Every Day Current packs/day: 1.00 Average packs/day: 1 pack/day for 30.2 years (30.2 ttl pk-yrs) Types: Cigarettes Start date: 07/11/1994 Smokeless tobacco: Never Vaping Use Vaping status: Never Used Substance Use Topics Alcohol use: Yes Alcohol/week: 8.0 standard drinks of alcohol Types: 8 Standard drinks or equivalent per week Drug use: Yes Types: Marijuana Comment: periodically Review of Symptoms REVIEW OF SYSTEMS GENERAL: No weight loss, malaise or fevers HEENT: Negative for frequent or significant headaches, No changes in hearing or vision, no nose bleeds or other nasal problems NECK: Negative for lumps, goiter, pain and significant neck swelling RESPIRATORY: Negative for cough, hemoptysis, wheezing, COPD, dyspnea or shortness of breath CARDIOVASCULAR: Negative for chest pain, leg swelling, hypertension, CHF or palpitations GI: No nausea, vomiting, or diarrhea : No history of dysuria, frequency or incontinence TOWN PLANNER: Negative for abnormal vaginal bleeding, abnormal vaginal discharge MUSCULOSKELETAL: See HPI SKIN: See HPI PSYCH: Negative for sleep disturbance, mood disorder and recent psychosocial stressors HEMATOLOGY/LYMPHOLOGY: Negative for prolonged bleeding, bruising easily or swollen nodes ENDOCRINE: Negative for cold or heat intolerance, polyuria, polydipsia and goiter NEURO: No history of headaches, syncope, paralysis, seizures (more content not included)... [facility] 09-13-2024 History of Presen t illness Narrative Chief Complaint Patient presents with: ER F/U: [facility]-right thumb nail concerns- work excuse for today if possible. Physical: May need to reschedule this-patient aware Recording using [employer] software for draft documentation of the visit was discussed with the patient/authorized containers sales representative; all questions welcomed and answered. Patient/authorized containers sales representative agreed to proceed HPI Emma Bazan is a 44 year old female who presents here today for ER Follow Up. Annual Wellness Exam: - Smokes <1 pack per day, x30 years; denies use of e-cigarettes or vaping. - Consumes 3-4 alcoholic drinks twice a week; occasional marijuana use. - Not currently sexually active; not using control. - Recent mammogram on 09/07 was negative. - Pap smear and HPV test in February 2023 were normal. Right Thumb Injury: - Evaluated in the ER at [facility] on 09/10 for right thumb pain and vertical discoloration of the nail. - Initially seen at urgent care and started on doxycycline on 09/09. - ER visit involved trephination of the nail and extraction of purulent material; advised to continue doxycycline and perform warm water soaks. - Currently taking doxycycline BID and performing warm water soaks 6-7 times a day for 10-15 minutes. - Reports increased soreness, pink discoloration, and a knot on the thumb. - No fever, chills, spreading redness, warmth, streaking, or additional purulent drainage. Boils: - Recurrent boils under the breasts, with one currently present under right breast and draining purulent material which started about 1 week ago. Does not think it is increasing in size or worsening since she has started the doxycycline. - Previous boils under the arms and on the inner thigh. - Using tea tree oil soap and draw out salve for treatment. - Had similar lesion under left breast drained by Dr. Enicso in the past. - Believes boils may be related to diabetes; mother has diabetes and was diagnosed around age 40. - History of prediabetes; attempted lifestyle changes with limited success due to dietary challenges with a picky child. Past medical history, appointments, medications, allergies reviewed. Previous Medical History PAST MEDICAL HISTORY Diagnosis Date Marijuana use Obesity Onychomycosis Paronychia of right thumb Tobacco use disorder Previous Surgical History PAST SURGICAL HISTORY Procedure Laterality Date LAPAROSCOPY SURG CHOLECYSTECTOMY 07/13/14 Family History FAMILY HISTORY Problem Relation Age of Onset Diabetes Mother Stroke Father other (ETOH) Sister No Known Problems Brother Heart Maternal Grandfather [place] Allergies Maternal Grandfather No Known Problems Daughter Patient Allergies ALLERGIES No Known Allergies Current Medications Current Outpatient Medications on File Prior to Visit Medication Sig doxycycline (VIBRA-TABS) 100 mg tablet Take 1 tablet by mouth two times a day for 7 days. MULTIVITAMIN ORAL Take by mouth. fluticasone (FLONASE) 50 mcg/actuation nasal spray Use 2 Sprays in each nostril once daily. Rinse mouth after use. (Patient not taking: Reported on 04/10/2024) acetaminophen 325 mg cap Take by mouth. (Patient not taking: Reported on 04/10/2024) No current facility-administered medications on file prior to visit. Social History Social History Tobacco Use Smoking status: Every Day Current packs/day: 1.00 Average packs/day: 1 pack/day for 30.2 years (30.2 ttl pk-yrs) Types: Cigarettes Start date: 07/11/1994 Smokeless tobacco: Never Vaping Use Vaping status: Never Used Substance Use Topics Alcohol use: Yes Alcohol/week: 8.0 standard drinks of alcohol Types: 8 Standard drinks or equivalent per week Drug use: Yes Types: Marijuana Comment: periodically Review of Symptoms REVIEW OF SYSTEMS GENERAL: No weight loss, malaise or fevers HEENT: Negative for frequent or significant headaches, No changes in hearing or vision, no nose bleeds or other nasal problems NECK: Negative for lumps, goiter, pain and significant neck swelling RESPIRATORY: Negative for cough, hemoptysis, wheezing, COPD, dyspnea or shortness of breath CARDIOVASCULAR: Negative for chest pain, leg swelling, hypertension, CHF or palpitations GI: No nausea, vomiting, or diarrhea : No history of dysuria, frequency or incontinence TOWN PLANNER: Negative for abnormal vaginal bleeding, abnormal vaginal discharge MUSCULOSKELETAL: See HPI SKIN: See HPI PSYCH: Negative for sleep disturbance, mood disorder and recent psychosocial stressors HEMATOLOGY/LYMPHOLOGY: Negative for prolonged bleeding, bruising easily or swollen nodes ENDOCRINE: Negative for cold or heat intolerance, polyuria, polydipsia and goiter NEURO: No history of headaches, syncope, paralysis, seizures or tremors EXAM: BP 116/80 Pulse 84 Temp 36.6 C (97.9 F) Resp 16 Wt 94.9 kg (209 lb 3.2 oz) LMP 06/05/2023 (Exact Date) SpO2 99% BMI 32.77 kg/m General Appearance: Well appearing, alert, in no acute distress, well-hydrated, well nourished.. Skin: 2.5 x 2.5 cm abscess under right breast with mild TTP, fluctuance, and warmth to touch. Right thumb mildly swollen compared to left. No erythema or purulent drainage. TTP over cuticle with visible purulent material under nail. Head: Normocephalic, no masses, lesions, tenderness or abnormalities. Eyes: Anicteric sclera. Pupils are equally round and reactive to light. Extraocular movements are intact. . Ears: External ears normal, canals clear. Nose/Sinuses: Nares normal, septum midline, mucosa normal, no drainage or sinus tenderness. Oropharynx: Lips, mucosa, and tongue normal, teeth and gums normal, oropharynx normal. Neck: Supple, no adenopathy; thyroid symmetric, normal size, no bruits. Lungs: Lungs clear to auscultation. No wheezing, rhonchi, rales.. Heart: RRR without murmur, gallop, or rubs. No ectopy. Abdomen: Normal abdominal exam, Abdomen soft, non-tender. Bowel sounds normal. No masses, organomegaly. Extremities: No Edema. Peripheral Pulses: Normal. Neurologic: CN II-XII grossly intact. Lymph Nodes: No cervical lymphadenopathy and No supraclavicular lymphadenopathy. Health Maintenance List Depression Screening Never done Anxiety Screening Never done Colorectal Cancer Screening Never done Hepatitis B Vaccine(1 of 3 - 19+ 3-dose series) due on 09/13/2025 Covid-19 Vaccine( season) due on 09/13/2025 Influenza Vaccine(Season Ended) due on 12/18/2024 Mammogram Screening due on 09/07/2025 Diabetes Screening due on 04/02/2026 Cervical Cancer Screening due on 03/09/2028 Lipid Screening due on 04/02/2028 DTaP,Tdap,Td Vaccine(3 - Td or Tdap) due on 06/19/2029 Pneumococcal Vaccine Completed Hepatitis C Screening Discontinued HIV Screening Discontinued Data reviewed Latest Ref Rng 04/02/2023 Protein, Total 6.3 - 8.0 g/dL 7.0 Albumin 3.9 - 4.9 g/dL 4.3 Calcium 8.5 - 10.2 mg/dL 9.4 Bilirubin, Total 0.2 - 1.3 mg/dL 0.3 Alkaline Phosphatase 34 - 123 U/L 50 AST 13 - 35 U/L 16 ALT 7 - 38 U/L 12 Glucose 74 - 99 mg/dL 102 (H) BUN 7 - 21 mg/dL 9 Creatinine 0.58 - 0.96 mg/dL 0.70 Sodium 136 - 144 mmol/L 138 Potassium 3.7 - 5.1 mmol/L 4.7 Chloride 97 - 105 mmol/L 103 CO2 22 - 30 mmol/L 23 Anion Gap 9 - 18 mmol/L 12 eGFR >=60 mL/min/1.73m 110 Cholesterol, Total <200 mg/dL 118 Triglyceride <150 mg/dL 126 HDL Cholesterol >39 mg/dL 36 (L) Non HDL Cholesterol <130 mg/dL 82 Fasting Time hrs 12 VLDL Cholesterol <30 mg/dL 25 TC:HDL Ratio <5.10 3.28 LDL Cholesterol, Calculated <100 mg/dL 57 LDL:HDL Ratio <2.54 1.58 Legend: (H) High (L) Low 1. Annual physical exam (Z00.00) - Conducted comprehensive physical examination; no abnormalities detected in heart, lungs, ears, throat, or extremities. - Ordered routine blood work to assess CBC, renal and hepatic function, lipid profile, diabetes screening, and thyroid function. - Discussed health maintenance, including diet and exercise recommendations: advised 30 minutes of exercise 4-5 times per week and a diet rich in lean proteins and vegetables. - Reviewed recent mammogram results from September 07, which were negative. - Discussed Pap smear and HPV test from February 2023, both normal; recommended repeat in 5 years. - Patient declined COVID booster. 2. Paronychia of right thumb (L03.011) - Recent ER visit for right thumb paronychia; nail trephination performed with purulent material extracted. - Currently on doxycycline; extended course by 3 additional days to ensure complete resolution. - Advised continuation of warm water soaks 6-7 times daily for 10-15 minutes. - Scheduled follow-up appointment on Wednesday to reassess. - Educated on signs of worsening infection, including increased swelling, spreading erythema, warmth, purulent drainage, fever, or lymphangitic streaking; instructed to seek immediate ER care if these symptoms occur. 3. Abscess of right breast (N61.1) - Noted abscess under the right breast with recent drainage of purulent material. - Referred to Dr. Enciso for further evaluation and management with possible I&D. - Advised continuation of current doxycycline regimen. - Educated on signs of worsening infection and instructed to seek ER care if necessary. 4. Onychomycosis (B35.1) - Observed thickened and yellowed toenails, particularly on the great toes. - Recommended [id number] ciclopirox (Penlac) antifungal solution; advised patient to follow package instructions. - Discussed expected treatment duration of several months for visible improvement. 5. Screening for colon cancer (Z12.11) - Discussed importance of colon cancer screening. - Referred to a surgeon for colonoscopy scheduling. 6. Obesity, Class I, BMI 30-34.9 (E66.811) - Discussed weight management strategies, including dietary modifications and regular exercise. - Encouraged use of exercise bike for cardiovascular health and weight reduction. 7. Tobacco abuse (Z72.0) - Patient smokes less than one pack per day for 30 years. - Discussed risks associated with smoking, including cardiovascular and pulmonary diseases, and various cancers. - Strongly advised smoking cessation to improve overall health and healing processes. - Offered resources for smoking cessation, including nicotine replacement therapies and medications; patient declined assistance at this time. 8. Marijuana use (F12.90) - Patient reports occasional marijuana use. - Discussed potential health risks, including elevated heart rate, lung damage, and exacerbation of anxiety and depression. - Advised cessation of marijuana use; offered support if needed. I spent a total of 40 minutes on the date of the service which included preparing to see the patient, [id number] patient care, completing clinical documentation, obtaining and/or reviewing separately obtained history, performing a medically appropriate examination, counseling and educating the patient/family/caregiver, and ordering medications, tests, or procedures. Mercy Torres MD documented in this encounter [facility] 09-12-2024 Telephone encounter Note Called and notified of Dr. Torres's recommendations. Pt verbalizes understanding. [facility] 09-12-2024 Miscellaneous Notes Called and notified of Dr. Torres's recommendations. Pt verbalizes understanding. Reviewed. Continue abx. If patient develops spreading redness, fever, streaking going up hand/arm he needs to be seen in the ER instead for failure of outpatient antibiotics. Patient called to triage for right thumb with purulent drainage. No redness, warmth, or pain. Nurse triage recommends see provider within 3 days. Patient is on doxycycline and was to follow up with dermatology. Recommended she continue antibiotic and schedule with dermatology for further eval. Patient reports that [facility] is unable to get her in until October and [facility] will only laser the area. Patient has appt for Physical tomorrow and will discuss with PCP at that time. Concerned that the area was never cultured. Reason for Disposition Taking antibiotics for fingernail infection [1] Taking antibiotic > 72 hours (3 days) AND [2] cellulitis symptoms are SAME (not getting better) Answer Assessment - Initial Assessment Questions 1. SYMPTOM: Patient reports thick yellow purulent drainage to nail. Patient was seen in and placed on doxycycline and told to follow up with dermatology. Patient reports that [facility] can't get her in until end of October and [facility] told her that all they would do is laser the area. Patient reports that no one ever cultured the thumb and doesn't know if she is on the right antibiotic. She says that over the weekend she decided to go to [facility] ER and all they did was drill two holes in the nail and tell her to soak it throughout the day but not submerge it for long periods of time. 2. CELLULITIS LOCATION: Patient was not told she has cellulitis. Placed on antibiotic preventative. 3. CELLULITIS SIZE: NA 4. HYIEQD-BSMC-ZKFYO: Same 5. PAIN: - NONE (0): No pain. 6. FEVER:No 7. OTHER SYMPTOMS: Pus. No red streaks, weakness 8. DIAGNOSIS DATE: 09/08/2024--Preventative tx. 9. ANTIBIOTIC NAME: Doxycycline twice daily for 7 days. 10. ANTIBIOTIC DATE: 09/08/2024 11. FOLLOW-UP APPOINTMENT: No. Patient is scheduled tomorrow for Physical with PCP. Answer Assessment - Initial Assessment Questions 1. SYMPTOM: Patient reports thick yellow purulent drainage to nail. Patient was seen in and placed on doxycycline and told to follow up with dermatology. Patient reports that [facility] can't get her in until end of October and [facility] told her that all they would do is laser the area. Patient reports that no one ever cultured the thumb and doesn't know if she is on the right antibiotic. She says that over the weekend she decided to go to [facility] ER and all they did was drill two holes in the nail and tell her to soak it throughout the day but not submerge it for long periods of time. 2. LOCATION: Right Thumb 3. ONSET: Prior to EC visit last week. 4. PAIN: - NONE (0): None. 5. PUS: Yes, there a small pocket of pus in the skin fold near the nail. Patient reports it extends the length of the nail bed. 6. FREQUENCY: No 7. OTHER SYMPTOMS: No chills, fever, red streak up the hand, redness of entire finger Protocols used: Fingernail Afrtoopoh-QCWJE-KH, Cellulitis on Antibiotic Follow-up [id number] documented in this encounter [facility] 09-12-2024 Telephone encounter Note Reviewed. Continue abx. If patient develops spreading redness, fever, streaking going up hand/arm he needs to be seen in the ER instead for failure of outpatient antibiotics. [facility] Work Phone: 09-12-2024 Telephone encounter Note Patient called to triage for right thumb with purulent drainage. No redness, warmth, or pain. Nurse triage recommends see provider within 3 days. Patient is on doxycycline and was to follow up with dermatology. Recommended she continue antibiotic and schedule with dermatology for further eval. Patient reports that [facility] is unable to get her in until October and [facility] will only laser the area. Patient has appt for Physical tomorrow and will discuss with PCP at that time. Concerned that the area was never cultured. Reason for Disposition Taking antibiotics for fingernail infection [1] Taking antibiotic > 72 hours (3 days) AND [2] cellulitis symptoms are SAME (not getting better) Answer Assessment - Initial Assessment Questions 1. SYMPTOM: Patient reports thick yellow purulent drainage to nail. Patient was seen in and placed on doxycycline and told to follow up with dermatology. Patient reports that [facility] can't get her in until end of October and [facility] told her that all they would do is laser the area. Patient reports that no one ever cultured the thumb and doesn't know if she is on the right antibiotic. She says that over the weekend she decided to go to [facility] ER and all they did was drill two holes in the nail and tell her to soak it throughout the day but not submerge it for long periods of time. 2. CELLULITIS LOCATION: Patient was not told she has cellulitis. Placed on antibiotic preventative. 3. CELLULITIS SIZE: NA 4. BZYGVK-LJLD-LAPPZ: Same 5. PAIN: - NONE (0): No pain. 6. FEVER:No 7. OTHER SYMPTOMS: Pus. No red streaks, weakness 8. DIAGNOSIS DATE: 09/08/2024--Preventative tx. 9. ANTIBIOTIC NAME: Doxycycline twice daily for 7 days. 10. ANTIBIOTIC DATE: 09/08/2024 11. FOLLOW-UP APPOINTMENT: No. Patient is scheduled tomorrow for Physical with PCP. Answer Assessment - Initial Assessment Questions 1. SYMPTOM: Patient reports thick yellow purulent drainage to nail. Patient was seen in and placed on doxycycline and told to follow up with dermatology. Patient reports that [facility] can't get her in until end of October and [facility] told her that all they would do is laser the area. Patient reports that no one ever cultured the thumb and doesn't know if she is on the right antibiotic. She says that over the weekend she decided to go to [facility] ER and all they did was drill two holes in the nail and tell her to soak it throughout the day but not submerge it for long periods of time. 2. LOCATION: Right Thumb 3. ONSET: Prior to visit last week. 4. PAIN: - NONE (0): None. 5. PUS: Yes, there a small pocket of pus in the skin fold near the nail. Patient reports it extends the length of the nail bed. 6. FREQUENCY: No 7. OTHER SYMPTOMS: No chills, fever, red streak up the hand, redness of entire finger Protocols used: Fingernail Fhwgewnuw-BRWFJ-CT, Cellulitis on Antibiotic Follow-up [id number] [facility] 09-08-2024 Note HNO ID: [id number] Author: GISEL KELLER APRN.DOMESTIC MAID Service: ? Author Type: Nurse Practitioner Type: Progress Notes Filed: 09/08/2024 15:38 Note Text: [facility] Subjective Emma Bazan is a 44 year old female. Patient presents with: Pain: To right thumb nail with discoloration, x1 week HPI Right Thumb Pain and Nail Discoloration: - Onset of pain last weekend, with a weird, funky, yellow line on the nail appearing this morning. - Initial pain localized to the distal phalanx, now involving the cuticle. - Denies trauma or injury to the nail. - Noted a previous little black thing on the nail that disappeared. 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 - Performs nail care at home; does not visit nail salons. - No chance of . Review of Systems Musculoskeletal: (+) right thumb pain Skin: (+) right thumb nail discoloration, (+) right thumb cuticle pain Objective BP 119/80 Pulse 82 Resp 18 Wt 95.6 kg (210 lb 12.2 oz) LMP 06/05/2023 (Exact Date) PF 98 L/min BMI 33.01 kg/m? Physical Exam General: No acute distress. Skin: Right thumb with nail discoloration, yellow line noted going down the center of the nail, tenderness around cuticle. no redness or swelling {1. Pain (R52) 2. Nail discoloration (L60.8) - Onset of thumb pain last weekend, with nail discoloration presenting as a yellow line on the right thumb this morning. - No history of trauma or injury to the nail; patient works with a saline solution at work. - Differential diagnosis includes bacterial or fungal infection. - Initiated doxycycline BID for 7 days to cover potential bacterial infection. - Referral to dermatology for further evaluation and potential biopsy; [facility] recommended for expedited appointment. - Patient advised to contact [facility] for the earliest available appointment. and Recording using ambient [employer] software for draft documentation of the visit was discussed with the patient/authorized containers sales representative; all questions welcomed and answered. Patient/authorized containers sales representative agreed to proceed MDM Procedures [facility] 09-07-2024 Note HNO ID: [id number] Author: LUCY KAUR Mammo Tech Service: ? Author Type: Datapower Consultant Type: Progress Notes Filed: 09/07/2024 08:03 Note Text: Radiology Service Progress Note PATIENT NAME: Emma Bazan DATE OF SERVICE: September 07, 2024 TIME: 8:03 AM PATIENT IDENTITY VERIFICATION COMPLETED USING TWO (2) IDENTIFIERS: Name and Date of confirmed by patient verbally. FALL SCREENING: Has the patient had 2 falls in the last year or 1 fall with injury or currently using an Ambulatory Assistive Device (Walker, Cane, Wheelchair, Crutches, etc.)? No PATIENT GENDER DATA: Assigned female at . status: : No status: NO. PATIENT RELEVANT IMPLANT DATA REVIEWED: Not Applicable PATIENT PRESENTS WITH AN IMPLANTABLE OR ATTACHED REHAB TECHNICIAN: No RADIOLOGY DEPARTMENT: Mammography PERIPHERAL IV DATA: Not applicable SIGNED BY: Domitila Stiles September 07, 2024 8:03 AM [facility] 05-29-2024 History of Presen t illness Narrative Emma Bazan 1980 REFERRING PHYSICIAN: No ref. provider found CHIEF COMPLAINT: Procedure (Excision of skin cyst of left lower breast area) HPI: The patient is a 43 year old female presents for excision of previous infected skin cyst of inferior aspect of left breast. However, at this point in time, the lesion has completely dissipated and is no longer palpable. There is small skin crater that was probably the site of the pore opening, but this has completely healed over as well. PAST MEDICAL HISTORY Diagnosis Date NEGATIVE MEDICAL HISTORY PAST SURGICAL HISTORY Procedure Laterality Date LAPAROSCOPY SURG CHOLECYSTECTOMY 07/13/14 Current Outpatient Medications Medication Sig MULTIVITAMIN ORAL Take by mouth. fluticasone (FLONASE) 50 mcg/actuation nasal spray Use 2 Sprays in each nostril once daily. Rinse mouth after use. (Patient not taking: Reported on 04/10/2024) acetaminophen 325 mg cap Take by mouth. (Patient not taking: Reported on 04/10/2024) No current facility-administered medications for this visit. ALLERGIES: Patient has no known allergies. REVIEW OF SYMPTOMS: Denies pain Denies fevers PHYSICAL EXAMINATION: General: The patient is 43 year old female, well nourished, well hydrated in no acute distress. The patient is oriented to time, place, and person. VITALS: Last menstrual period 06/05/2023. There is no height or weight on file to calculate BMI. Head: Normal cephalic, atraumatic Neck is supple with no tracheal deviation Chest - left breast - inferior aspect - at this point in time - there is no palpable lesion to remove - no evidence of infection Respiratory: Normal respiratory excursion and pattern. The sensitive examination was discussed with the Patient or Patient's Authorized Network Intelligence Analyst. As applicable, any other physician, advance practice provider, medical student, or other health professional student that will be observing or involved in the sensitive examination for educational or training purposes was discussed with the Patient or Authorized Network Intelligence Analyst. The Patient or Authorized Network Intelligence Analyst has agreed to proceed with the sensitive examination. (Sensitive examination includes inspection and/or palpation of the breasts, pelvis, prostate and anorectal regions) Assessment IMPRESSION: history of infected sebaceous cyst - completely resolved at this point in time PLAN: I have discussed the above with the patient. There are no feasible surgical indications at this time. Patient counseled to return to clinic if worsening signs/symptoms Patient to return to her PCP for medical care. Patient acknowledges the above. I have answered all questions to the patient s satisfaction and the patient has no further questions. . Diagnoses: (L72.9) Skin cyst (primary encounter diagnosis) - infection resolved I have confirmed and edited as necessary, the PFSH and ROS obtained by others. Medical Decision Making: Problems: Minimal: Self-limited or minor problem Medical Decision Making Level: 2 - Straightforward Neema Enciso MD documented in this encounter [facility] 05-29-2024 Note HNO ID: [id number] Author: NEEMA ENCISO MD Service: ? Author Type: Physician Type: Progress Notes Filed: 05/29/2024 15:51 Note Text: Emma Bazan 1980 REFERRING PHYSICIAN: No ref. provider found CHIEF COMPLAINT: Procedure (Excision of skin cyst of left lower breast area) HPI: The patient is a 43 year old female presents for excision of previous infected skin cyst of inferior aspect of left breast. However, at this point in time, the lesion has completely dissipated and is no longer palpable. There is small skin crater that was probably the site of the pore opening, but this has completely healed over as well. PAST MEDICAL HISTORY Diagnosis Date NEGATIVE MEDICAL HISTORY PAST SURGICAL HISTORY Procedure Laterality Date LAPAROSCOPY SURG CHOLECYSTECTOMY 07/13/14 Current Outpatient Medications Medication Sig MULTIVITAMIN ORAL Take by mouth. fluticasone (FLONASE) 50 mcg/actuation nasal spray Use 2 Sprays in each nostril once daily. Rinse mouth after use. (Patient not taking: Reported on 04/10/2024) acetaminophen 325 mg cap Take by mouth. (Patient not taking: Reported on 04/10/2024) No current facility-administered medications for this visit. ALLERGIES: Patient has no known allergies. REVIEW OF SYMPTOMS: Denies pain Denies fevers PHYSICAL EXAMINATION: General: The patient is 43 year old female, well nourished, well hydrated in no acute distress. The patient is oriented to time, place, and person. VITALS: Last menstrual period 06/05/2023. There is no height or weight on file to calculate BMI. Head: Normal cephalic, atraumatic Neck is supple with no tracheal deviation Chest - left breast - inferior aspect - at this point in time - there is no palpable lesion to remove - no evidence of infection Respiratory: Normal respiratory excursion and pattern. The sensitive examination was discussed with the Patient or Patient's Authorized Network Intelligence Analyst. As applicable, any other physician, advance practice provider, medical student, or other health professional student that will be observing or involved in the sensitive examination for educational or training purposes was discussed with the Patient or Authorized Network Intelligence Analyst. The Patient or Authorized Network Intelligence Analyst has agreed to proceed with the sensitive examination. (Sensitive examination includes inspection and/or palpation of the breasts, pelvis, prostate and anorectal regions) Assessment IMPRESSION: history of infected sebaceous cyst - completely resolved at this point in time PLAN: I have discussed the above with the patient. There are no feasible surgical indications at this time. Patient counseled to return to clinic if worsening signs/symptoms Patient to return to her PCP for medical care. Patient acknowledges the above. I have answered all questions to the patient?s satisfaction and the patient has no further questions. . Diagnoses: (L72.9) Skin cyst (primary encounter diagnosis) - infection resolved I have confirmed and edited as necessary, the PFSH and ROS obtained by others. Medical Decision Making: Problems: Minimal: Self-limited or minor problem Medical Decision Making Level: 2 - Straightforward Neema Enciso MD [facility] 05-08-2024 Note HNO ID: [id number] Author: NEEMA ENCISO MD Service: ? Author Type: Physician Type: Progress Notes Filed: 05/13/2024 12:19 Note Text: Emma Sidney Beni 1980 CHIEF COMPLAINT: Follow Up (Skin lesion) HPI: The patient is a 43 year old female here for follow up of left breast cellulitis. The infection consolidated to a smaller area with brawny skin discoloration. PAST MEDICAL HISTORY Diagnosis Date NEGATIVE MEDICAL HISTORY BMI 33 PAST SURGICAL HISTORY Procedure Laterality Date LAPAROSCOPY SURG CHOLECYSTECTOMY 07/13/14 Current Outpatient Medications Medication Sig MULTIVITAMIN ORAL Take by mouth. fluticasone (FLONASE) 50 mcg/actuation nasal spray Use 2 Sprays in each nostril once daily. Rinse mouth after use. (Patient not taking: Reported on 04/10/2024) acetaminophen 325 mg cap Take by mouth. (Patient not taking: Reported on 04/10/2024) No current facility-administered medications for this visit. ALLERGIES: Patient has no known allergies. REVIEW OF SYSTEMS: Denies fevers PHYSICAL EXAMINATION: General: The patient is 43 year old female, well nourished, well hydrated in no acute distress. The patient is oriented to time, place, and person. VITALS: Last menstrual period 06/05/2023. There is no height or weight on file to calculate BMI. 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 I have offered excision of skin cyst of lower left breast. I have explained the procedure to the patient. To be done in the office with local anesthesia I have counseled the patient as to the risks of the procedure, including but not limited to: infection, bleeding, injury to any blood vessels/nerves, scar tissue, continued infections, complications of anesthesia, etc. - the patient understands. The patient wishes to proceed. I have answered all questions to the patient?s satisfaction and the patient has no further questions. . Diagnoses: (L72.9) Skin cyst (primary encounter diagnosis) I have confirmed and edited as necessary, the PFSH and ROS obtained by others. Medical Decision Making: Problems: Low: Stable chronic illness Risk: Low: Low risk from testing/treatment Medical Decision Making Level: 3 - Low Neema Enciso MD [facility] 04-17-2024 Note HNO ID: [id number] Author: BRIANA ROCHA LPN Service: ? Author Type: LICENSED NURSE Type: Progress Notes Filed: 04/21/2024 13:57 Note Text: REVIEW OF SYSTEMS: General: The patient denies fatigue, denies weight loss, denies weight gain, denies feeling hot, and denies feelings of cold. Eyes: The patient denies glaucoma, denies eye injury/surgery, does not wear glasses or contacts. Ear/Nose/Throat: The patient denies allergies, denies hayfever, denies ear infections, and denies bloody noses. Cardiovascular: The patient denies chest pain, denies heart disease, denies high blood pressure,denies cardiac stent, denies prior heart attack, denies irregular heart beat, denies high cholesterol, denies poor circulation, denies heart failure, other cardiac issues, denies claudication, denies cold feet, denies peripheral arterial stent. Respiratory: The patient denies tuberculosis, denies pneumonia, denies frequent cough, denies pulmonary embolism, denies shortness of breath, and denies coughing up blood. Gastrointestinal: The patient denies difficulty swallowing, denies acid reflux, denies ulcers, denies vomiting, denies jaundice/hepatitis, denies gallbladder problems, denies black or tarry stools, denies hemorrhoids, denies bleeding from rectum, denies diverticulitis, denies constipation, denies diarrhea, denies loss of stool control, and denies hernias. Kidney/Bladder: The patient denies kidney stones, denies urine infections, and denies bloody urine. Skin: The patient denies a history of skin cancer, denies bleeding/changing moles, and denies a history of skin rash. Neurologic: The patient denies a history of epilepsy/convulsions, denies headaches, denies head/spinal injuries, and denies stroke/TIA. Psychiatric: The patient denies psychiatric medications, denies depression, and denies voices, denies substance abuse. Endocrine: The patient denies thyroid disorders, denies diabetes, and denies hormonal problems. Hematologic: The patient denies a history of bruising, denies bleeding, and denies anemia, denies blood clots. Infections: The patient denies a history of measles and mumps, denies rheumatic fever, and denies sexually transmitted diseases. Musculoskeletal: The patient denies back pain/injury, denies back problems, denies sciatica, denies knee/foot trouble, denies arthritis, or denies gout. When was patient's last Mammogram screening? 2023 Last Colonoscopy: n/a Briana Rocha LPN [facility] 04-17-2024 History of Presen t illness Narrative REVIEW OF SYSTEMS: General: The patient denies fatigue, denies weight loss, denies weight gain, denies feeling hot, and denies feelings of cold. Eyes: The patient denies glaucoma, denies eye injury/surgery, does not wear glasses or contacts. Ear/Nose/Throat: The patient denies allergies, denies hayfever, denies ear infections, and denies bloody noses. Cardiovascular: The patient denies chest pain, denies heart disease, denies high blood pressure,denies cardiac stent, denies prior heart attack, denies irregular heart beat, denies high cholesterol, denies poor circulation, denies heart failure, other cardiac issues, denies claudication, denies cold feet, denies peripheral arterial stent. Respiratory: The patient denies tuberculosis, denies pneumonia, denies frequent cough, denies pulmonary embolism, denies shortness of breath, and denies coughing up blood. Gastrointestinal: The patient denies difficulty swallowing, denies acid reflux, denies ulcers, denies vomiting, denies jaundice/hepatitis, denies gallbladder problems, denies black or tarry stools, denies hemorrhoids, denies bleeding from rectum, denies diverticulitis, denies constipation, denies diarrhea, denies loss of stool control, and denies hernias. Kidney/Bladder: The patient denies kidney stones, denies urine infections, and denies bloody urine. Skin: The patient denies a history of skin cancer, denies bleeding/changing moles, and denies a history of skin rash. Neurologic: The patient denies a history of epilepsy/convulsions, denies headaches, denies head/spinal injuries, and denies stroke/TIA. Psychiatric: The patient denies psychiatric medications, denies depression, and denies voices, denies substance abuse. Endocrine: The patient denies thyroid disorders, denies diabetes, and denies hormonal problems. Hematologic: The patient denies a history of bruising, denies bleeding, and denies anemia, denies blood clots. Infections: The patient denies a history of measles and mumps, denies rheumatic fever, and denies sexually transmitted diseases. Musculoskeletal: The patient denies back pain/injury, denies back problems, denies sciatica, denies knee/foot trouble, denies arthritis, or denies gout. When was patient's last Mammogram screening? 2023 Last Colonoscopy: n/a Briana Rocha LPN Emma Bazan 1980 REFERRING PHYSICIAN: Gisel Keller APRN.* CHIEF COMPLAINT: Consult (Left breast boil/abscess ruptured-currently taking doxycycline) HPI: The patient is a 43 year old female who presents with skin infection of left breast. She states that it developed in the past few weeks. She noted that it had ruptured within the past week and this made her feel better. She was also started on antibiotics. She denies fevers. PAST MEDICAL HISTORY Diagnosis Date NEGATIVE MEDICAL HISTORY PAST SURGICAL HISTORY Procedure Laterality Date LAPAROSCOPY SURG CHOLECYSTECTOMY 07/13/14 Current Outpatient Medications Medication Sig MULTIVITAMIN ORAL Take by mouth. doxycycline (VIBRA-TABS) 100 mg tablet Take 1 tablet by mouth two times a day for 7 days. fluticasone (FLONASE) 50 mcg/actuation nasal spray Use 2 Sprays in each nostril once daily. Rinse mouth after use. (Patient not taking: Reported on 04/10/2024) acetaminophen 325 mg cap Take by mouth. (Patient not taking: Reported on 04/10/2024) No current facility-administered medications for this visit. ALLERGIES: Patient has no known allergies. PERSONAL HISTORY: Social History Tobacco Use Smoking status: Every Day Current packs/day: 1.00 Average packs/day: 1 pack/day for 29.8 years (29.8 ttl pk-yrs) Types: Cigarettes Start date: 07/11/1994 Smokeless tobacco: Never Vaping Use Vaping status: current everyday user Substance Use Topics Alcohol use: Yes Comment: twisted teas Drug use: Yes Types: Marijuana Comment: periodically FAMILY HISTORY Problem Relation Age of Onset Stroke Father Diabetes Mother other (ETOH) Sister No Known Problems Brother Heart Maternal Grandfather [place] Allergies Maternal Grandfather REVIEW OF SYSTEMS: General: The patient denies fatigue, denies weight loss, denies weight gain, denies feeling hot, and denies feelings of cold. Eyes: The patient denies glaucoma, denies eye injury/surgery, does not wear glasses or contacts. Ear/Nose/Throat: The patient denies allergies, denies hayfever, denies ear infections, and denies bloody noses. Cardiovascular: The patient denies chest pain, denies heart disease, denies high blood pressure,denies cardiac stent, denies prior heart attack, denies irregular heart beat, denies high cholesterol, denies poor circulation, denies heart failure, other cardiac issues, denies claudication, denies cold feet, denies peripheral arterial stent. Respiratory: The patient denies tuberculosis, denies pneumonia, denies frequent cough, denies pulmonary embolism, denies shortness of breath, and denies coughing up blood. Gastrointestinal: The patient denies difficulty swallowing, denies acid reflux, denies ulcers, denies vomiting, denies jaundice/hepatitis, denies gallbladder problems, denies black or tarry stools, denies hemorrhoids, denies bleeding from rectum, denies diverticulitis, denies constipation, denies diarrhea, denies loss of stool control, and denies hernias. Kidney/Bladder: The patient denies kidney stones, denies urine infections, and denies bloody urine. Skin: The patient denies a history of skin cancer, denies bleeding/changing moles, and denies a history of skin rash. Neurologic: The patient denies a history of epilepsy/convulsions, denies headaches, denies head/spinal injuries, and denies stroke/TIA. Psychiatric: The patient denies psychiatric medications, denies depression, and denies voices, denies substance abuse. Endocrine: The patient denies thyroid disorders, denies diabetes, and denies hormonal problems. Hematologic: The patient denies a history of bruising, denies bleeding, and denies anemia, denies blood clots. Infections: The patient denies a history of measles and mumps, denies rheumatic fever, and denies sexually transmitted diseases. Musculoskeletal: The patient denies back pain/injury, denies back problems, denies sciatica, denies knee/foot trouble, denies arthritis, or denies gout. PHYSICAL EXAMINATION: General: The patient is 43 year old female, well nourished, well hydrated in no acute distress. The patient is oriented to time, place, and person. VITALS: Blood pressure 134/82, pulse 95, temperature 36.6 C (97.8 F), height 170.2 cm (5' 7), weight 95.7 kg (211 lb), last menstrual period 06/05/2023, SpO2 98%. Body mass index is 33.05 kg/m . Head: Normal cephalic, atraumatic Eyes: pupils are equally round, sclera are clear/anicteric Neck is supple with no tracheal deviation Chest: left breast - lower outer area of 3-4 cm of brawny coloration of skin but no fluctuance/masses noted Cardiac: normal heart sounds, regular Respiratory: Normal respiratory excursion and pattern. Abdominal exam: benign Extremities: no clubbing, cyanosis or edema. Neuro: non focal Psych: normal mood The sensitive examination was discussed with the Patient or Patient's Authorized Network Intelligence Analyst. As applicable, any other physician, advance practice provider, medical student, or other health professional student that will be observing or involved in the sensitive examination for educational or training purposes was discussed with the Patient or Authorized Network Intelligence Analyst. The Patient or Authorized Network Intelligence Analyst has agreed to proceed with the sensitive examination. (Sensitive examination includes inspection and/or palpation of the breasts, pelvis, prostate and anorectal regions) Assessment IMPRESSION: skin infection of left breast PLAN: I have discussed the above with the patient. No surgical indications at this point in time. Continue with antibiotics. Warm compresses to area. Follow up two weeks to assess if resolution. Cellulitis may dissipate or may consolidate into abscess - patient educated. Return to clinic sooner if worsening signs/symptoms She acknowledges the above. I have answered all questions to the patient s satisfaction and the patient has no further questions. I have confirmed and edited as necessary, the PFSH and ROS obtained by others. Consultation requested by Gisel Keller for an opinion regarding patient's left breast infection. My final recommendations will be communicated back to the requesting physician by way of shared Medical record or letter to requesting physician via US mail. . Diagnoses: (L08.9) Skin infection Medical Decision Making: Problems: Low: Acute, uncomplicated illness or injury Medical Decision Making Level: 2 - Straightforward Neema Enciso MD documented in this encounter [facility] 04-17-2024 Note HNO ID: [id number] Author: NEEMA ENCISO MD Service: ? Author Type: Physician Type: Progress Notes Filed: 04/21/2024 13:57 Note Text: Emma Bazan 1980 REFERRING PHYSICIAN: Gisel Keller APRN.* CHIEF COMPLAINT: Consult (Left breast boil/abscess ruptured-currently taking doxycycline) HPI: The patient is a 43 year old female who presents with skin infection of left breast. She states that it developed in the past few weeks. She noted that it had ruptured within the past week and this made her feel better. She was also started on antibiotics. She denies fevers. PAST MEDICAL HISTORY Diagnosis Date NEGATIVE MEDICAL HISTORY PAST SURGICAL HISTORY Procedure Laterality Date LAPAROSCOPY SURG CHOLECYSTECTOMY 07/13/14 Current Outpatient Medications Medication Sig MULTIVITAMIN ORAL Take by mouth. doxycycline (VIBRA-TABS) 100 mg tablet Take 1 tablet by mouth two times a day for 7 days. fluticasone (FLONASE) 50 mcg/actuation nasal spray Use 2 Sprays in each nostril once daily. Rinse mouth after use. (Patient not taking: Reported on 04/10/2024) acetaminophen 325 mg cap Take by mouth. (Patient not taking: Reported on 04/10/2024) No current facility-administered medications for this visit. ALLERGIES: Patient has no known allergies. PERSONAL HISTORY: Social History Tobacco Use Smoking status: Every Day Current packs/day: 1.00 Average packs/day: 1 pack/day for 29.8 years (29.8 ttl pk-yrs) Types: Cigarettes Start date: 07/11/1994 Smokeless tobacco: Never Vaping Use Vaping status: current everyday user Substance Use Topics Alcohol use: Yes Comment: twisted teas Drug use: Yes Types: Marijuana Comment: periodically FAMILY HISTORY Problem Relation Age of Onset Stroke Father Diabetes Mother other (ETOH) Sister No Known Problems Brother Heart Maternal Grandfather [place] Allergies Maternal Grandfather REVIEW OF SYSTEMS: General: The patient denies fatigue, denies weight loss, denies weight gain, denies feeling hot, and denies feelings of cold. Eyes: The patient denies glaucoma, denies eye injury/surgery, does not wear glasses or contacts. Ear/Nose/Throat: The patient denies allergies, denies hayfever, denies ear infections, and denies bloody noses. Cardiovascular: The patient denies chest pain, denies heart disease, denies high blood pressure,denies cardiac stent, denies prior heart attack, denies irregular heart beat, denies high cholesterol, denies poor circulation, denies heart failure, other cardiac issues, denies claudication, denies cold feet, denies peripheral arterial stent. Respiratory: The patient denies tuberculosis, denies pneumonia, denies frequent cough, denies pulmonary embolism, denies shortness of breath, and denies coughing up blood. Gastrointestinal: The patient denies difficulty swallowing, denies acid reflux, denies ulcers, denies vomiting, denies jaundice/hepatitis, denies gallbladder problems, denies black or tarry stools, denies hemorrhoids, denies bleeding from rectum, denies diverticulitis, denies constipation, denies diarrhea, denies loss of stool control, and denies hernias. Kidney/Bladder: The patient denies kidney stones, denies urine infections, and denies bloody urine. Skin: The patient denies a history of skin cancer, denies bleeding/changing moles, and denies a history of skin rash. Neurologic: The patient denies a history of epilepsy/convulsions, denies headaches, denies head/spinal injuries, and denies stroke/TIA. Psychiatric: The patient denies psychiatric medications, denies depression, and denies voices, denies substance abuse. Endocrine: The patient denies thyroid disorders, denies diabetes, and denies hormonal problems. Hematologic: The patient denies a history of bruising, denies bleeding, and denies anemia, denies blood clots. Infections: The patient denies a history of measles and mumps, denies rheumatic fever, and denies sexually transmitted diseases. Musculoskeletal: The patient denies back pain/injury, denies back problems, denies sciatica, denies knee/foot trouble, denies arthritis, or denies gout. PHYSICAL EXAMINATION: General: The patient is 43 year old female, well nourished, well hydrated in no acute distress. The patient is oriented to time, place, and person. VITALS: Blood pressure 134/82, pulse 95, temperature 36.6 ?C (97.8 ?F), height 170.2 cm (5' 7), weight 95.7 kg (211 lb), last menstrual period 06/05/2023, SpO2 98%. Body mass index is 33.05 kg/m?. Head: Normal cephalic, atraumatic Eyes: pupils are equally round, sclera are clear/anicteric Neck is supple with no tracheal deviation Chest: left breast - lower outer area of 3-4 cm of brawny coloration of skin but no fluctuance/masses noted Cardiac: normal heart sounds, regular Respiratory: Normal respiratory excursion and pattern. Abdominal exam: benign Extremities: no clubbing, cyanosis or edema. N (more content not included)... [facility] 04-10-2024 Note HNO ID: [id number] Author: GISEL KELLER APRN.[facility] Service: ? Author Type: Nurse Practitioner Type: Progress Notes Filed: 04/10/2024 15:36 Note Text: Subjective Complaints of soreness and redness under her left breast. Patient said that it started a about a month ago. Patient has been putting some drawnout salve on it. Patient says it has been staying the same. Patient is not sure if it has been draining. Patient denies any fever chills nausea vomiting. Patient says she has had a few other boils or abscesses in the past. The history is provided by the patient. No cvir tech was used. Review of Systems Constitutional: Negative. Objective Physical Exam Constitutional: Appearance: Normal appearance. Pulmonary: Effort: Pulmonary effort is normal. Chest: Comments: Patient does have redness in the area marked above it is not firm. Does appear to be draining. Neurological: Mental Status: She is alert. PAST MEDICAL HISTORY Diagnosis Date NEGATIVE MEDICAL HISTORY PAST SURGICAL HISTORY Procedure Laterality Date LAPAROSCOPY SURG CHOLECYSTECTOMY 07/13/14 ALLERGIES Patient has no known allergies. MEDICATIONS MULTIVITAMIN ORAL Take by mouth. doxycycline (VIBRA-TABS) 100 mg tablet Take 1 tablet by mouth two times a day for 7 days. fluticasone (FLONASE) 50 mcg/actuation nasal spray Use 2 Sprays in each nostril once daily. Rinse mouth after use. (Patient not taking: Reported on 04/10/2024) acetaminophen 325 mg cap Take by mouth. (Patient not taking: Reported on 04/10/2024) FAMILY HISTORY Problem Relation Age of Onset Stroke Father Diabetes Mother other (ETOH) Sister No Known Problems Brother Heart Maternal Grandfather [place] Allergies Maternal Grandfather Social History Tobacco Use Smoking status: Every Day Current packs/day: 1.00 Average packs/day: 1 pack/day for 29.7 years (29.7 ttl pk-yrs) Types: Cigarettes Start date: 07/11/1994 Smokeless tobacco: Never Vaping Use Vaping status: current everyday user Substance Use Topics Alcohol use: Yes Comment: twisted teas Drug use: Yes Types: Marijuana Comment: periodically ASSESSMENT/PLAN: 1. Skin infection - ICD9: 686.9, ICD10: L08.9 - DOXYCYCLINE HYCLATE 100 MG TABLET - CONSULT TO GENERAL SURGERY Was educated about proper use of medication and supportive therapies. Patient was educated about red flag symptoms. Patient was set up with general surgery follow-up in case it needs opened and drained. Patient agreeable to care plan. The sensitive examination was discussed with the Patient or Patient's Authorized Network Intelligence Analyst. As applicable, any other physician, advance practice provider, medical student, or other health professional student that will be observing or involved in the sensitive examination for educational or training purposes was discussed with the Patient or Authorized Network Intelligence Analyst. The Patient or Authorized Network Intelligence Analyst has agreed to proceed with the sensitive examination. (Sensitive examination includes inspection and/or palpation of the breasts, pelvis, prostate and anorectal regions) Gisel Keller APRN.[facility] 04-10-2024 History of Presen t illness Narrative Images from the original note were not included. Subjective Complaints of soreness and redness under her left breast. Patient said that it started a about a month ago. Patient has been putting some drawnout salve on it. Patient says it has been staying the same. Patient is not sure if it has been draining. Patient denies any fever chills nausea vomiting. Patient says she has had a few other boils or abscesses in the past. The history is provided by the patient. No cvir tech was used. Review of Systems Constitutional: Negative. Objective Physical Exam Constitutional: Appearance: Normal appearance. Pulmonary: Effort: Pulmonary effort is normal. Chest: Comments: Patient does have redness in the area marked above it is not firm. Does appear to be draining. Neurological: Mental Status: She is alert. PAST MEDICAL HISTORY Diagnosis Date NEGATIVE MEDICAL HISTORY PAST SURGICAL HISTORY Procedure Laterality Date LAPAROSCOPY SURG CHOLECYSTECTOMY 07/13/14 ALLERGIES Patient has no known allergies. MEDICATIONS MULTIVITAMIN ORAL Take by mouth. doxycycline (VIBRA-TABS) 100 mg tablet Take 1 tablet by mouth two times a day for 7 days. fluticasone (FLONASE) 50 mcg/actuation nasal spray Use 2 Sprays in each nostril once daily. Rinse mouth after use. (Patient not taking: Reported on 04/10/2024) acetaminophen 325 mg cap Take by mouth. (Patient not taking: Reported on 04/10/2024) FAMILY HISTORY Problem Relation Age of Onset Stroke Father Diabetes Mother other (ETOH) Sister No Known Problems Brother Heart Maternal Grandfather [place] Allergies Maternal Grandfather Social History Tobacco Use Smoking status: Every Day Current packs/day: 1.00 Average packs/day: 1 pack/day for 29.7 years (29.7 ttl pk-yrs) Types: Cigarettes Start date: 07/11/1994 Smokeless tobacco: Never Vaping Use Vaping status: current everyday user Substance Use Topics Alcohol use: Yes Comment: twisted teas Drug use: Yes Types: Marijuana Comment: periodically ASSESSMENT/PLAN: 1. Skin infection - ICD9: 686.9, ICD10: L08.9 - DOXYCYCLINE HYCLATE 100 MG TABLET - CONSULT TO GENERAL SURGERY Was educated about proper use of medication and supportive therapies. Patient was educated about red flag symptoms. Patient was set up with general surgery follow-up in case it needs opened and drained. Patient agreeable to care plan. The sensitive examination was discussed with the Patient or Patient's Authorized Network Intelligence Analyst. As applicable, any other physician, advance practice provider, medical student, or other health professional student that will be observing or involved in the sensitive examination for educational or training purposes was discussed with the Patient or Authorized Network Intelligence Analyst. The Patient or Authorized Network Intelligence Analyst has agreed to proceed with the sensitive examination. (Sensitive examination includes inspection and/or palpation of the breasts, pelvis, prostate and anorectal regions) Gisel Keller APRN.[facility] documented in this encounter [facility] 01-31-2024 Telephone encounter Note Last seen for annual exam on 03/12/23, has upcoming annual on 03/14/24. Mammogram order pended. Pippa Rogers RN [facility] 01-31-2024 Miscellaneous Notes Last seen for annual exam on 03/12/23, has upcoming annual on 03/14/24. Mammogram order pended. Pippa Rogers RN Pt sent in [employer] message requesting an order for her Mammogram, last mammo was July 2023 Thank you documented in this encounter [facility] 01-31-2024 Telephone encounter Note Pt sent in [employer] message requesting an order for her Mammogram, last mammo was July 2023 Thank you [facility] 07-20-2023 Miscellaneous Notes July 20, 2023 PID: [id number] Emma Bazan [address] [place] [id number] Dear Beni, We are pleased to inform you that the results of your recent breast imaging exam on 07/20/2023 are normal. Early detection of cancer is very important. We also understand recommendations regarding breast cancer screening are controversial. Please discuss with your primary care provider which strategy is best for you and whether a mammogram is right for you. Your imaging studies and report will be kept on file at [facility] as part of your permanent medical record and are available for your continuing care. Thank you for allowing us to help in meeting your health care needs. Sincerely, Dr. Najera Interpreting Radiologist (Normal over 40) documented in this encounter [facility] 06-17-2023 History of Presen t illness Narrative Radiology Service Progress Note PATIENT NAME: Emma Bazan DATE OF SERVICE: June 17, 2023 TIME: 8:37 AM PATIENT IDENTITY VERIFICATION COMPLETED USING TWO (2) IDENTIFIERS: Name and Date of confirmed by patient verbally. FALL SCREENING: Has the patient had 2 falls in the last year or 1 fall with injury or currently using an Ambulatory Assistive Device (Walker, Cane, Wheelchair, Crutches, etc.)? No PATIENT GENDER DATA: Female. status: : No status: NO. PATIENT RELEVANT IMPLANT DATA REVIEWED: Not Applicable PATIENT PRESENTS WITH AN IMPLANTABLE OR ATTACHED REHAB TECHNICIAN: No RADIOLOGY DEPARTMENT: General X-ray: Exam(s) Completed: Chest X-Ray PERIPHERAL IV DATA: Not applicable SIGNED BY: RT Trina(R) June 17, 2023 8:37 AM documented in this encounter [facility] 06-17-2023 History of Presen t illness Narrative Subjective HPI HPI Emma Bazan is a 42 year old female who presents today for CC of cough, congestion, wheeze, h/a. This started 4 days ago. Has tried otc medication for relief. Symptoms are worsened by nothing. Risk factors otc medication for relief. Smoker. Denies possibility of being . .Patient presents with: Cough: Dry cough, chest congestion, bodyaches, headache, wheeze x 4 days PAST MEDICAL HISTORY Diagnosis Date NEGATIVE MEDICAL HISTORY PAST SURGICAL HISTORY Procedure Laterality Date LAPAROSCOPY SURG CHOLECYSTECTOMY 07/13/14 ALLERGIES Patient has no known allergies. MEDICATIONS acetaminophen 325 mg cap Take by mouth. sulfamethoxazole-trimethoprim (BACTRIM DS) 800-160 mg per tablet Take 1 tablet by mouth two times a day for 7 days. (Patient not taking: Reported on 06/17/2023) DEBLITANE 0.35 mg tablet Take 1 tablet by mouth once daily. FAMILY HISTORY Problem Relation Age of Onset Stroke Father Diabetes Mother other (ETOH) Sister No Known Problems Brother Heart Maternal Grandfather [place] Allergies Maternal Grandfather Social History Tobacco Use Smoking status: Every Day Packs/day: 1.00 Years: 20.00 Additional pack years: 0.00 Total pack years: 20.00 Types: Cigarettes Start date: 07/11/1994 Smokeless tobacco: Never Vaping Use Vaping Use: current everyday user Substance Use Topics Alcohol use: Yes Comment: twisted teas Drug use: Yes Types: Marijuana Comment: periodically Review of Systems Constitutional: Negative for fever. HENT: Positive for congestion and sore throat. Negative for ear pain and nosebleeds. Respiratory: Positive for cough and wheezing. Negative for shortness of breath. Cardiovascular: Negative for chest pain. Gastrointestinal: Negative for diarrhea and vomiting. Musculoskeletal: Negative for neck pain. Skin: Negative for itching and rash. Neurological: Positive for headaches. Objective Blood pressure 107/73, pulse 96, temperature 36.6 C (97.8 F), resp. rate 18, weight 96.2 kg (212 lb), last menstrual period 06/05/2023, SpO2 98%. Physical Exam Constitutional: General: She is not in acute distress. Appearance: She is not toxic-appearing or diaphoretic. HENT: Head: Normocephalic and atraumatic. Cardiovascular: Rate and Rhythm: Normal rate and regular rhythm. Heart sounds: Normal heart sounds, S1 normal and S2 normal. Pulmonary: Effort: Pulmonary effort is normal. Breath sounds: Normal breath sounds. Lymphadenopathy: Cervical: No cervical adenopathy. Right cervical: No superficial cervical adenopathy. Left cervical: No superficial cervical adenopathy. Neurological: Mental Status: She is alert and oriented to person, place, and time. Gait: Gait is intact. ASSESSMENT/PLAN: 1. URI, acute - ICD9: 465.9, ICD10: J06.9 (primary diagnosis) - Discussed viral etiology and rationale for treatment. - Symptomatic treatment with prn analgesia - Supportive care with fluids and rest - Follow up in 3-5 days if symptoms persist or sooner if worsening of symptoms 2. Acute cough - ICD9: 786.2, ICD10: R05.1 Xray negative. - XR CHEST 2V FRONTAL/LAT IMPRESSION: No acute radiographic abnormality. Dictated by : KRISHNA DOYLE MD - PREDNISONE 20 MG TABLET - FLUTICASONE PROPIONATE 50 MCG/ACTUATION NASAL SPRAY,SUSPENSION Nicholas Kumar APRN.[facility] documented in this encounter [facility] 06-10-2023 History of Presen t illness Narrative Images from the original note were not included. This note was created using [employer]. Subjective Emma Bazan is a 42 year old female. Patient reports she has an abscess on her L inner thigh. Started yesterday. Patient has been putting salve on it and believes it burst this morning while dropping her child off at school. Patient reports she has had an abscess in this area before. Abscess Denies any nausea vomiting fever chills. Review of Systems Skin: Positive for wound. Objective BP 132/81 Pulse 91 Temp 36.6 C (97.9 F) Resp 20 Wt 98.9 kg (218 lb) LMP 06/05/2023 (Exact Date) SpO2 99% BMI 35.12 kg/m Physical Exam Skin: Findings: Abscess present. Comments: Patient had a small abscess on her left inner thigh. No erythema or warmth noted, wound is indurated and is about the size of a pea. PAST MEDICAL HISTORY Diagnosis Date NEGATIVE MEDICAL HISTORY PAST SURGICAL HISTORY Procedure Laterality Date LAPAROSCOPY SURG CHOLECYSTECTOMY 07/13/14 ALLERGIES Patient has no known allergies. MEDICATIONS sulfamethoxazole-trimethoprim (BACTRIM DS) 800-160 mg per tablet Take 1 tablet by mouth two times a day for 7 days. DEBLITANE 0.35 mg tablet Take 1 tablet by mouth once daily. acetaminophen 325 mg cap Take by mouth. FAMILY HISTORY Problem Relation Age of Onset Stroke Father Diabetes Mother other (ETOH) Sister No Known Problems Brother Heart Maternal Grandfather [place] Allergies Maternal Grandfather Social History Tobacco Use Smoking status: Every Day Packs/day: 1.00 Years: 20.00 Additional pack years: 0.00 Total pack years: 20.00 Types: Cigarettes Start date: 07/11/1994 Smokeless tobacco: Never Vaping Use Vaping Use: current everyday user Substance Use Topics Alcohol use: Yes Comment: twisted teas Drug use: Yes Types: Marijuana Comment: periodically ASSESSMENT/PLAN: 1. Skin infection - ICD9: 686.9, ICD10: L08.9 - Begin treatment with Trimethoprim-sulfamethozazole (Bactrim) 2 DS PO BID - Follow up with dermatology for recheck in three days - Recommended soaking in epsom salts - SULFAMETHOXAZOLE 800 MG-TRIMETHOPRIM 160 MG TABLET Prescription instructions reviewed with patient. Potential red flag symptoms discussed with the patient. Reviewed appropriate action plan to take if red flag symptoms occur. Patient agreeable to treatment plan. Parris Pastor Supervising provider was present and guided the care of the patient for the entire session on this date. All documentation was reviewed and agreed upon. Gisel Keller APRN.GHASSAN documented in this encounter [facility] 03-09-2023 History of Presen t illness Narrative Marketing Lead offered: Patient declines. Emma is a 42 year old who presents for an annual gynecologic exam without complaints. Menses: cycles every 28 days and 3-5 days of flow. Contraception: Progestin - only contraceptives HPV vaccine: No Last Pap: normal History of abnormal pap: No Last mammogram: 2021 normal Sexually active: Yes History of STDS: None Patient concerns for STD exposure: No. 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 Comments: Sexual Activity: Yes; Male Contraception: Pill Menstrual Tracking History Flowsheet Row Office Visit from 03/09/2023 in OB/Gynecology Menstrual Flow Heavy PAST MEDICAL HISTORY Diagnosis Date NEGATIVE MEDICAL HISTORY PAST SURGICAL HISTORY Procedure Laterality Date LAPAROSCOPY SURG CHOLECYSTECTOMY 07/13/14 FAMILY HISTORY Problem Relation Age of Onset Stroke Father Diabetes Mother other (ETOH) Sister No Known Problems Brother Heart Maternal Grandfather [place] Allergies Maternal Grandfather SOCIAL HISTORY Social History Tobacco Use Smoking status: Every Day Packs/day: 1.00 Years: 20.00 Additional pack years: 0.00 Total pack years: 20.00 Types: Cigarettes Start date: 07/11/1994 Smokeless tobacco: Never Vaping Use Vaping Use: current everyday user Substance Use Topics Alcohol use: Yes Comment: twisted teas Drug use: Yes Types: Marijuana Comment: periodically REVIEW OF SYSTEMS Abdomen: No abdominal pain, nausea, vomiting, diarrhea, or constipation. No bloating, early satiety, indigestion, or increased flatulence. Bladder: No dysuria, gross hematuria, urinary frequency, urinary urgency, or incontinence. Breast: No breast lumps, nipple d/c, overlying skin changes, redness or skin retraction. Allergies and current medication updated:Yes EXAM: BP 102/70 Ht 5' 7 (1.70m) Wt 207 lb (93.9kg) LMP 02/17/2023 BMI 32.41 kg/(m^2). GENERAL: pleasant, female in no apparent distress HEENT: Normocephalic, atraumatic, mucus membranes moist, and no lesions NECK: Supple, full range of motion, no adenopathy, and thyroid normal DERMATOLOGY: Normal, without lesions, non-icteric, and non-hirsute BREAST: soft, non-tender, symmetric, no dominant mass, normal nipple-areolar complex, no lymphadenopathy, and no nipple discharge ABDOMEN: soft, non-tender, and no masses PELVIC: external genitalia normal, normal Bartholin's glands, urethra, Farnham's glands, no vulvar lesions, no cervical lesions, good vaginal support, physiologic discharge present, normal appearing perineal body and perianal region BIMANUAL: uterus normal size, shape and consistency, no adnexal masses, and non-tender RECTOVAGINAL: deferred. NEURO: alert and oriented x3,exam grossly non-focal EXTREMITIES: normal ASSESSMENT/PLAN: 1) Health maintenance: Pap done with HPV. Mammogram ordered. Nutrition, exercise and routine health maintenance exams reviewed. Calcium/Vitamin D supplementation information provided. 2) Contraception: Progestin - only contraceptives. Contraceptive options reviewed and information provided. 3) STD screening: Declined STD check. 4) Follow up one year or sooner as needed Ester Carter MD documented in this encounter [facility] 03-17-2022 Miscellaneous Notes Patient notified of positive test. Your covid test is positive. Follow the CDC guidelines for isolation: 1. Everyone, regardless of vaccination status, should stay home for 5 days. 2. If you have no symptoms or your symptoms are resolving after 5 days, you can leave your house. 3. Continue to wear a mask around others for 5 additional days. If you have a fever, continue to stay home until your fever resolves, even if it is longer than 5 days. Please monitor your symptoms, and for any worrisome symptoms. Continue comfort measures for symptoms as you would for a cold. Any worsening symptoms follow up with PCP or ER. Advise to follow up with virtual visit if desires antivirals as discussed at visit Elisa Rodas APRN.GHASSAN documented in this encounter [facility] 03-16-2022 History of Presen t illness Narrative Patient presents with: Cough: chills, sore throat, fever x 3 days, covid exposure HPI: Feeling sick for 4 days. 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 Positive symptoms: Cough, Sore throat, Fever, Chills, Nasal Congestion, Rhinorrhea, Malaise, Fatigue, Headache, Diarrhea, poor appetite, a little Shortness of breath/Wheezing Negative symptoms: vomiting, OTC: Nyquil, Cold Medicine, Tylenol No past inhaler/steroid use for URIs. PAST MEDICAL HISTORY Diagnosis Date NEGATIVE MEDICAL HISTORY MEDICATIONS: Current Outpatient Medications Medication Sig acetaminophen 325 mg cap Take by mouth. DEBLITANE 0.35 mg tablet Take 1 tablet by mouth once daily. No current facility-administered medications for this visit. ALLERGIES: ALLERGIES No Known Allergies VITALS: BP 124/68 Pulse 112 Temp 37.3 C (99.2 F) Resp 16 Wt 93.9 kg (207 lb) LMP 07/26/2021 SpO2 98% BMI 33.67 kg/m PHYSICAL EXAM: GEN: mildly ill appearing HEENT: PERRL, EOMI, conjunctiva clear Ears: canals clear. TMs without erythema, bulge, or effusion Sinuses: tender sinuses Throat: moist mucous membranes, mild erythema, no exudate Neck: supple, no thyromegaly, no lymphadenopathy HEART: regular rate and rhythm, no murmurs LUNGS: clear to auscultation, no wheezes or crackles, no increased WOB ASSESSMENT/PLAN: 1. Influenza-like illness - ICD9: 487.1, ICD10: J11.1 (primary diagnosis) 2. Exposure to confirmed case of COVID-19 - ICD9: V01.79, ICD10: Z20.822 - suspect viral URI, differential includes COVID-19 and influenza. - Discussed supportive care treatment with home isolation, rest, cold medicine, and analgesia. - Red flags to seek further treatment include chest pain, shortness of breath, and lethargy; in the ER if severe. - COVID WITH FLUA+B, ROUTINE - recommended virtual visit if positive for COVID and interested in anti-viral treatment. Issa Chapin MD documented in this encounter [facility] 12-03-2021 Instructions Salbador Isidro - 12/03/2021 2:18 PM EDT Images from the original note were not included. What is Plantar Fasciitis? Plantar fasciitis is the most common cause of heel pain. The pain is caused by inflammation of the plantar fascia. If you strain your plantar fascia, it becomes weak, swollen and irritated (inflamed). The resulting pain may be isolated in the heel or may appear at different points on the bottom of the foot, from time to time; it may occur in one foot or both. Some think that plantar fasciitis pain is caused by irritation of nerves from tissue swelling or inflammation, but it is debatable. Plantar fasciitis is common in middle-aged people; it also occurs in younger people who are on their feet a lot, such as athletes or soldiers. The plantar fascia is a strong band of connective tissue that extends from the base of the toes, along the bottom of the foot, to the bottom of the heel (calcaneous bone); it acts like a bowstring to maintain the arch of the foot. What are heel spurs? The inflammatory reaction of the heel bone may produce spike-like projections of new bone, called heel spurs. The spurs sometimes show on X-rays. They neither cause the initial pain nor do they cause the initial problem. However, later, having to walk on spurs may cause sharp pain. What causes plantar fasciitis? Plantar fasciitis is caused by straining the ligament that supports your arch. Repeated strain can cause tiny tears in the ligament. These lead to pain and swelling. During walking, the plantar fascia experiences tension up to twice the body weight with each step. While this is normal, those who spend much time on their feet, such as nurses, product delivery specialist/waiters, and mail carriers, often experience plantar fasciitis. Athletes involved in tennis or other racquet sports, race walking, jogging or running also show a higher incidence of plantar fasciitis than do those participating in other activities. Thus, it's clear that plantar fasciitis is predominantly an overuse injury. In fact, any activity that results in prolonged tension and stress on the plantar fascia may cause plantar fasciitis. It is possible that changes in footwear may play a role in causing plantar fasciitis, no matter what activity is occurring. Those who are overweight are prone to plantar fasciitis. This is true even for sedentary people who get little physical activity. Abnormalities of the foot and ankle joints may predispose some individuals to development of plantar fasciitis (specifically, over pronation of the subtalar joint). Contributing Factors * Flat feet * Toe running, hill running * Sudden weight increase * High-arched, rigid feet * Soft terrain, e.g. running on sand * Obesity * Pronated feet (rolled inward) * Sudden increase in activity * Family tendency * Poor shoe support * Worn out or poorly fitted shoes * Increasing age * Walking, standing or running for long periods of time, especially on hard surfaces. How is the Injury Treated? Rest Your Feet: Limit, or if possible, stop activities that are causing your heel pain. Try to avoid running or walking on hard surfaces, such as concrete. Use pain as your guide. If your foot is too painful, rest it. Ice: Ice the sore area for 30 to 60 minutes, several times a day, to reduce inflammation and relieve pain. Apply a plastic bag of crushed ice (or a bag of frozen peas) over a towel. Ice the sore area for 15 minutes after activity/exercise. Application of heat is not generally recommended, as heat expands the bone and connective tissue, perhaps exerting greater pressure on nerves and thereby increasing pain. If heat is used, follow it with ice. Medication: If your condition developed recently, anti-inflammatory/analgesic medication, combined with heel pads (see below) may be all that is necessary to relieve pain and to reduce inflammation. If no pain relief has occurred after 2-3 weeks, however, your doctor may inject either cortisone or local anesthetic directly into the tender area. Exercises: Do simple exercises, such as calf stretches and towel stretches (see below) several times a day, especially when you first get up in the morning. These can help your ligament become more flexible and strengthen the muscles that support your arch. Shoes: Poorly fitting shoes can cause plantar fasciitis. The best type of shoe to wear is a good walking or running shoe with good shock absorption and excellent arch support. You should choose the one that fits the best. [place] with your athletic shoes to find a pair that is comfortable and causes fewer symptoms. Put your shoes on as soon as you get out of bed; going barefoot or wearing slippers may make your pain worse. Good brands include (but are not limited to): New Balance, Asics, Saucony, SAS and Merrel s. Taping: Your doctor may tape your foot to maintain the arch. This takes some of the tension off the plantar fascia. Weight Loss: If your weight is putting extra stress on your feet, your doctor may encourage you to try a weight-loss program. Orthotics: An orthotic insole is a molded piece of rubber, plastic, or other material that you insert into your shoe. It corrects the alignment of your foot and cushions your foot from excessive pounding. These may be prescription or non-prescription. Prescription orthotics are custom-fitted and may fit better and control pain better, but are very expensive. Night Splints: A night splint holds the foot with the toes pointed up and the ankle at a 90-degree angle. This position applies a constant, gentle stretch to the plantar fascia. Corticosteroid Shots: Steroids may be injected into the tender area to reduce inflammation. REHAB Exercises to stretch the plantar fascia, the calf muscles, and the Achilles tendon. Tightness of the muscles of the calves may contribute to plantar fasciitis, so stretching the calf muscles is important to rehabilitation, as is stretching of the plantar fascia itself. Plantar fascial stretches Assisted Dorsiflexion/Plantar Fascia Stretch: Sit on the floor or ground, barefoot, with both legs outstretched. Use a towel or elastic band and wrap it around the ball (and not the toes) of the affected foot. Use the towel or elastic band to provide resistance to upward movement of the forefoot. Pull foot upward (toward your body) with the help of the elastic band or towel, and then return to the starting position. Ten repetitions are recommended. Perform the sequence at least three times a day. Alternate Plantar Fascia Stretch: Sit upright in a chair, barefoot. Place the ankle of the affected foot on your opposite knee. Using the same hand as the affected foot, reach across and grab the toes. Flex the ankle toward and pull the toes toward the colby. To test the stretch, place the thumb of your hand on the bottom of the foot. You should be able to feel the cord-like plantar fascia, running the length of the foot. Hold the stretch for a count of 10, then relax. Repeat 10 times. Do the sequence at least three times a day. Achilles/Calf Stretches Strengthening the muscles of the calves may contribute to successful rehabilitation of plantar fasciitis, as well as prevent reoccurrence. The exercises below will help strengthen the calf muscles. Calf and Achilles Tendon Stretch (Gastrocnemius Stretch): Face a wall, standing an arm's length away. Place one foot back. Place both hands on the wall. Bend the elbows and knee of your forward leg, keeping the heel of the backward foot on the floor and keeping your body straight (aligned), until your forehead nearly touches the wall, or until significant stretch is felt in the muscles of the calf of the backward leg. Hold this position for 10 to 15 seconds. Extend elbows (straighten your arms and stand upright again) and maintain this position for 10 seconds. Repeat this cycle 15 to 20 times. Switch legs and repeat the exercise. STEROID INJECTION You have been injected with a corticosteroid and local anesthesia today. This should provide relief of symptoms for the next 8 hours or so. After this time frame you will likely experience an increase in pain symptoms again until the effects of the steroid start to work, which should occur within 24-48 hours. Approximately 2% of individuals may experience a post injection flare or severe worsening of symptoms following injection. If this occurs ice the area and take Tylenol or Aleve for pain. In some very rare instances skin depigmentation and joint infection may occur. Joint infection is a concern if you experience any of the following: pain for more than 48 hours after the injection pain develops more than 2 days after the injection the area becomes red, hot or swollen you develop a fever following the injection Corticosteroid injections can also rarely interfere with the healing process and weaken tendons, sometimes causing tendons to rupture. Repeated injections of steroids can also damage joint cartilage. For these reasons, there are limits to how many times and how frequently corticosteroid injections can be used in the same area. If anything seems unusual or out of the ordinary please contact our office as soon as possible for further instruction. Trichloroacetic acid (TCA) has been applied to the plantar warts. Rinse off in 12 hours and keep clean and dry. May bathe and shower normally starting the day after treatment The area is expected to burn and blister in about 1-3 days, if painful soak in plain, cool water. If blistered, you may drain the blister with a clean, STERILIZED needle and apply OTC antibiotic ointment and band aid to area. Repeat 2-3 times daily as needed. Tylenol or Aleve as needed for pain, provided you have no allergies to either of these. Keep scheduled follow up appointment to have wart(s) re-evaluated and/or additional treatments. documented in this encounter [facility] 12-03-2021 History of Presen t illness Narrative Images from the original note were not included. Chief Complaint: This 41 year old female who presents with chief complaint:left heel pain HPI Patient presents to clinic for evaluation of left foot. Patient compains of left plantar medial heel pain. This has been going on for a couple of years but when covid hit, she stopped working and the pain subsided. She has since returned to work and now the pain is returning. She states the pain is most severe after periods of rest. Past treatment includes night splint, stretching, inserts, ibuprofen. Patient states the pain in her left foot is 8/10 at its most severe. PAIN EVALUATION 12/03/2021 1359 Pain Level: 8 Pain Location: Foot-Left Description: Other: See comment feels like a nail in foot Duration Amount of Time: 1 Duration Units: Months Frequency: Continuous Intervention/Comfort measure: Reposition;Relaxation;Cold No results found for: HBA1C PCP: Mercy Torres MD PAST MEDICAL HISTORY Diagnosis Date NEGATIVE MEDICAL HISTORY Current Outpatient Medications Medication Sig acetaminophen 325 mg cap Take by mouth. DEBLITANE 0.35 mg tablet Take 1 tablet by mouth once daily. fluticasone (FLONASE) 50 mcg/actuation nasal spray Use 2 Sprays in each nostril once daily. Rinse mouth after use. varenicline (CHANTIX STARTING MONTH BOX) 0.5 mg (11)- 1 mg (42) tablet Take 1 tablet (0.5 mg) by mouth once daily for 3 days, then 1 tablet (0.5 mg) twice daily for 4 days, then one tablet (1 mg) twice daily. (Patient not taking: No sig reported) No current facility-administered medications for this visit. ALLERGIES No Known Allergies PAST SURGICAL HISTORY Procedure Laterality Date LAPAROSCOPY SURG CHOLECYSTECTOMY 07/13/14 FAMILY HISTORY Problem Relation Age of Onset Stroke Father Diabetes Mother other (ETOH) Sister No Known Problems Brother Heart Maternal Grandfather [place] Allergies Maternal Grandfather Social History Tobacco Use Smoking status: Every Day Packs/day: 1.00 Years: 20.00 Pack years: 20.00 Types: Cigarettes Start date: 07/11/1994 Smokeless tobacco: Never Vaping Use Vaping Use: current everyday user Substance Use Topics Alcohol use: Yes Comment: twisted teas Drug use: Yes Types: Marijuana Comment: periodically REVIEW OF SYSTEMS GENERAL: Negative for Malaise, significant weight loss, fever RESPIRATORY: Negative for cough, wheezing and shortness of breath CARDIOVASCULAR: Negative for chest pain, leg swelling and palpitations GI: Negative for abdominal discomfort, blood in stools or black stools and change in bowel habits : Negative for dysuria, frequency and incontinence MUSCULOSKELETAL: Negative for joint pain or swelling, back pain, and muscle pain. SKIN: Negative for lesions, rash, and itching. HEMATOLOGY/LYMPHOLOGY Negative for prolonged bleeding, bruising easily, and swollen nodes. ENDOCRINE: Negative for cold or heat intolerance, polyuria, polydipsia and goiter. NEURO: negative Physical Exam: Constitutional: Pt is a well developed 41 year old female who is alert, oriented and cooperative Eyes: Following during examination. No redness or drainage. Respiratory: RR normal and nonlabored. Even breathing. No evidence of distress or shortness of breath. Psychology: Patient is engaged during conversation. Normal affect and mood. Does not appear depressed or anxious during encounter. Vascular: Dorsalis pedis and posterior tibial pulses palpable as b/l Capillary Fill time < 5 seconds to digits 1-5 b/l Skin temperature warm to warm proximal to distal b/l Hair growth present to digits Neurological: intact light touch/epicritic sensation - tinel b/l intact protective sensation no significant neurological deficits Dermatological: Nails 1-5 b/l appear normal. Webspaces clean and dry 1-4 b/l. Skin appears well hydrated and supple. good color, texture, turgor. No open lesions present. No callosities present. Musculoskeletal/Orthopaedic: Patient has pain to palpation of left medial calcaneal tubercle Foot type is neutral structurally AJ ROM is full with knee extended and flexed 1st MPJ is full when loaded and no pain or crepitus are noted with ROM. MTJ, STJ are full and free of pain and crepitus. +5/5 muscle strength dorsiflexion, plantarflexion, inversion, eversion b/l Radiographs: plantar heel spur present on 2019 xray ASSESSMENT: (M72.2) Plantar fasciitis (primary encounter diagnosis) (B07.0) Plantar wart of left foot PLAN: 1. Initial Office Visit - A thorough review of the patient's PMH and Podiatric physical exam was completed. 2. Patient advised to perform stretching excercises, icing, and to make appropriate shoe gear changes to include wearing athletic-type shoes with supportive insoles. No barefoot walking. Patient also given written instructions on how to correctly perform the stretching of the achilles tendon/calf stretches, and the heel spur/plantar fasciitis regimen. 3. Patient advised to seek wide, deep toe box, accomodative, comfortable, lace-up, athletic/walking type footwear that includes motion control characteristics for support and cushion that need to be worn at all times when weight-bearing. Shoes should be tested for torsional stability as well as proper bending at the toebox rather than at the midfoot. Good quality shoes such as, but not limited to, New Balance or Asics are examples of more proper foot gear. 4. Patient recommended to get powerstep insoles for proper support of the arch in order to alleviate the tension and stress on the plantar fascia associated with normal daily walking. Patient advised that these modalities used in conjunction with stretching and icing are able to alleviate most symptoms from this condition. 5. Discussed injection of left heel. Patient elected to receive Patient elected to proceed with an injection to the heel today. The risks, benefits, potential complications, personnel present, and alternatives to this were discsussed. Pt elected to proceed. all questions were answered. no guarantees were given. A timeout was performed. patient properly identified. procedure site marked. Under aseptic technique an injection was performed to the heel using a mixture of cc of 0.5 % Marcaine plain, of kenalog and cc of dexamethazone 6. Discussed wart of left hallux. Lesion was debrided today with 15 blade. Tca applied under occlusion. Recommend compound w at home Salbador Isidro DPM Podiatry [address] [facility] [id number] Dept: [phone] Dept AMB ROOMING INTAKE FLOWSHEET DATA Risk Screening Do you have concerns about personal safety or safety in the home?: No Pain Pain Level: 8 Pain Location: Foot-Left Description: Other: See comment (feels like a nail in foot) Duration Amount of Time: 1 Duration Units: Months Frequency: Continuous Intervention/Comfort measure: Reposition, Relaxation, Cold Patient presents with: Left Foot - Established Patient, Follow Up, Pain Meenu Peck LPN documented in this encounter [facility] 07-30-2021 Miscellaneous Notes Patient notified.Savannah Che LPN ----- Message from Issa Chapin MD sent at 07/30/2021 7:18 AM EDT ----- Negative COVID and Influenza tests. documented in this encounter [facility] 07-29-2021 Instructions Leonardo Cristina APRN.[facility] - 07/29/2021 9:19 AM EDT How to Manage Common Symptoms Associated with COVID for Adults Fever- Fever is a temperature over 100.4 F and can occur when the body is fighting an infection. To help treat a fever: Drink plenty of fluids and stay well hydrated. Eat small amounts of easy to digest food. Rest. Your body needs rest to recover, but getting up and moving around the house frequently is a good idea. You should try to continue doing your normal daily activities (bathing, toileting, grooming, cooking), though you will probably feel tired, and need to rest often. Avoid any heavy activity or exercise, as this will increase your body temperature. Dress in light clothing and stay covered in a light sheet. Keep the room temperature cool. Take a slightly warm (not cold or cool) bath, or apply damp washcloths to the forehead and wrists. Cough- Cough is a common symptom associated with COVID and can be bothersome. To help treat a cough: Stay well hydrated. Try warm water or tea with lemon and/or honey to help soothe the cough. Use a humidifier to add moisture to the air. Try a product with menthol, like a cough drop or a rub for your chest such as Vicks, which can help reduce cough. Try cough drops. Avoid smoking and other strong odors or perfumes. Try breathing exercises to keep your lungs open and clear. Take a big deep breath through your nose and hold for 5 seconds before slowly releasing. Repeat frequently, while you are awake. Congestion- Runny nose or nasal congestion can occur with COVID. Treatment can help relieve symptoms: Try OTC nasal saline spray, or nasal saline rinse to relieve mucus congestion. Nasal strips can help keep nasal passages open, to increase airflow. Elevating your head with an extra pillow in bed can help reduce congestion. Using a humidifier can increase moisture in the air, and make breathing easier. Sore Throat- Another common symptom with COVID, can be managed at home by: Stay well hydrated. Gargle with salt water mix teaspoon salt with 1 cup of warm water and gargle. This helps to loosen mucus in the back of the throat and may reduce discomfort. Try ice chips, popsicles or lozenges to soothe the throat. Nausea/Vomiting/Diarrhea- These are common symptoms, and staying hydrated is most important. If you are nauseous or vomiting, start with small sips of water every 10-15 minutes and increase as tolerated. You can try sucking an ice cube too. If tolerating, you can try pedialyte or Gatorade, or flat sprite or dalia-alfred. Start slowly and increase as you are able to. Instead of meals, try smaller, more frequent snacks. Try eating bland foods like crackers, toast, rice, and applesauce. Avoid spicy, greasy or fried foods and dairy containing foods. Even if you aren't feeling hungry due to lack of smell or taste, it is important to try to take in some food when you are able. After drinking and eating, rest in an upright position for up to two hours as needed to help decrease nauseous feelings. Try closing your eyes, avoid moving and watching TV. Avoid strong odors that can make you feel more nauseated. When to seek emergency medical attention Look for emergency warning signs for COVID-19. If having any of these symptoms, seek emergency medical care immediately: Trouble breathing Persistent pain or pressure in the chest New confusion Inability to wake or stay awake Bluish lips or face *This list is not all possible symptoms. Please call your medical provider for any other symptoms that are severe or concerning to you. documented in this encounter [facility] 07-29-2021 History of Presen t illness Narrative Subjective HPI Nontoxic female presents urgent care chief complaint flulike symptoms. Duration of symptoms 3 days. Associated symptoms left ear pain nasal congestion and cough. Mother states daughter has similar signs symptoms. Her symptoms are improving. Denies any OTC medication use. Denies any significant pain currently. Rates pain 3 out of 10. Denies any fever body aches chills productive cough chest pain shortness of breath pleuritic hemoptysis or change in bowel or bladder meds. Past medical history prescription medication use allergies reviewed. .Patient presents with: Ear Pain: (LT) ear pain rated 3 on pain scale x 4 days PAST MEDICAL HISTORY Diagnosis Date NEGATIVE MEDICAL HISTORY PAST SURGICAL HISTORY Procedure Laterality Date LAPAROSCOPY SURG CHOLECYSTECTOMY 07/13/14 ALLERGIES Patient has no known allergies. MEDICATIONS acetaminophen (TYLENOL) 325 mg cap Take by mouth. DEBLITANE 0.35 mg tablet Take 1 tablet by mouth once daily. fluticasone (FLONASE) 50 mcg/actuation nasal spray Use 2 Sprays in each nostril once daily. Rinse mouth after use. varenicline (CHANTIX STARTING MONTH BOX) 0.5 mg (11)- 1 mg (42) tablet Take 1 tablet (0.5 mg) by mouth once daily for 3 days, then 1 tablet (0.5 mg) twice daily for 4 days, then one tablet (1 mg) twice daily. FAMILY HISTORY Problem Relation Age of Onset Stroke Father Diabetes Mother other (ETOH) Sister No Known Problems Brother Heart Maternal Grandfather [place] Allergies Maternal Grandfather Social History Tobacco Use Smoking status: Current Every Day Smoker Packs/day: 1.00 Years: 20.00 Pack years: 20.00 Types: Cigarettes Start date: 07/11/1994 Smokeless tobacco: Never Used Vaping Use Vaping Use: current everyday user Substance Use Topics Alcohol use: Yes Comment: twisted teas Drug use: Yes Types: Marijuana Comment: periodically BP 116/70 Pulse 90 Temp 36.6 C (97.9 F) Resp 14 Wt 86.3 kg (190 lb 3.2 oz) LMP 07/26/2021 SpO2 97% BMI 30.93 kg/m Review of Systems Constitutional: Negative for chills, fever and malaise/fatigue. HENT: Positive for congestion and ear pain. Negative for ear discharge, sinus pain and sore throat. Eyes: Negative for blurred vision, pain, discharge and redness. Respiratory: Positive for cough. Negative for hemoptysis, sputum production, shortness of breath, wheezing and stridor. Cardiovascular: Negative for chest pain. Gastrointestinal: Negative for abdominal pain, diarrhea, nausea and vomiting. Musculoskeletal: Negative for myalgias. Skin: Negative for itching and rash. Neurological: Negative for dizziness and headaches. Objective Physical Exam Vitals and nursing note reviewed. Constitutional: General: She is not in acute distress. Appearance: She is not diaphoretic. HENT: Head: Normocephalic and atraumatic. Jaw: No trismus. Right Ear: Hearing, tympanic membrane, ear canal and external ear normal. No decreased hearing noted. No drainage, swelling or tenderness. Tympanic membrane is not perforated, erythematous or bulging. Left Ear: Hearing, tympanic membrane, ear canal and external ear normal. No decreased hearing noted. No drainage, swelling or tenderness. Tympanic membrane is not perforated, erythematous or bulging. Nose: Congestion present. Mouth/Throat: Mouth: Mucous membranes are moist. Pharynx: Oropharynx is clear. Uvula midline. No oropharyngeal exudate, posterior oropharyngeal erythema or uvula swelling. Tonsils: No tonsillar abscesses. Eyes: General: Right eye: No discharge. Left eye: No discharge. Conjunctiva/sclera: Conjunctivae normal. Pupils: Pupils are equal, round, and reactive to light. Cardiovascular: Rate and Rhythm: Normal rate and regular rhythm. Heart sounds: Normal heart sounds. Pulmonary: Effort: Pulmonary effort is normal. No tachypnea, accessory muscle usage or respiratory distress. Breath sounds: Normal breath sounds. No stridor. No wheezing, rhonchi or rales. Chest: Chest wall: No tenderness. Abdominal: Palpations: Abdomen is soft. Tenderness: There is no abdominal tenderness. Musculoskeletal: General: No tenderness. Normal range of motion. Cervical back: Normal range of motion and neck supple. No rigidity or tenderness. Lymphadenopathy: Head: Right side of head: No submental, submandibular, tonsillar, preauricular, posterior auricular or occipital adenopathy. Left side of head: No submental, submandibular, tonsillar, preauricular, posterior auricular or occipital adenopathy. Cervical: No cervical adenopathy. Right cervical: No superficial or posterior cervical adenopathy. Left cervical: No superficial or posterior cervical adenopathy. Skin: General: Skin is warm and dry. Findings: No rash. Neurological: Mental Status: She is alert and oriented to person, place, and time. ASSESSMENT/PLAN: 1. Viral illness - ICD9: 079.99, ICD10: B34.9 - COVID WITH FLUA+B, ROUTINE Vital signs within normal limits. No abnormal findings noted on physical assessment. We will treat as viral illness. Daughter has similar signs symptoms. Will test for influenza COVID-19. Patient was educated on supportive therapies. Patient will follow up with primary care provider as needed. Patient was instructed to immediately proceed to emergency room for any new, worsening, or symptoms lasting longer than anticipated. The patient's clinical presentation is otherwise unremarkable at this time. Based on exam and clinical finding, the patient is stable for discharge. Plan of care was discussed with patient. Patient verbalizes understanding and agrees to plan of care. This note was generated using [employer] software. It may contain errors in wording, punctuation, or spelling. Leonardo Cristina APRN.GHASSAN documented in this encounter [facility] Evaluation note Diagnosis Viral illness- Primary Unspecified viral infection, in conditions classified elsewhere and of unspecified site [facility] Diagnosis Plantar fasciitis- Primary Plantar fascial fibromatosis Plantar wart of left foot Plantar wart [facility] Diagnosis Encounter for screening mammogram for breast cancer documented in this encounter [facility] note* Diagnosis Influenza-like illness- Primary Influenza with other respiratory manifestations Exposure to confirmed case of COVID-19 documented in this encounter [facility] noteNo assessment information availableWMercy Health St[facility] Work Phone: Evaluation note* Diagnosis Encounter for gynecological examination (general) (routine) without abnormal findings- Primary Screening for cervical cancer Screening for malignant neoplasm of the cervix Encounter for screening for human papillomavirus (HPV) Special screening examination for human papillomavirus (HPV) Encounter for screening mammogram for breast cancer [facility] Diagnosis Skin infection- Primary Unspecified local infection of skin and subcutaneous tissue [facility] Diagnosis URI, acute- Primary Acute upper respiratory infections of unspecified site Acute cough [facility]* Diagnosis Encounter for screening mammogram for breast cancer [facility] Diagnosis Encounter for screening mammogram for malignant neoplasm of breast- Primary Other screening mammogram [facility] Diagnosis Skin infection- Primary Unspecified local infection of skin and subcutaneous tissue [facility] Diagnosis Skin infection Unspecified local infection of skin and subcutaneous tissue [facility] Diagnosis Skin cyst- Primary Sebaceous cyst [facility]* Diagnosis Annual physical exam- Primary Routine general medical examination at a health care facility Paronychia of right thumb Onychia and paronychia of finger Abscess of right breast Inflammatory disease of breast Onychomycosis Dermatophytosis of nail Screening for colon cancer Special screening for malignant neoplasms, colon Obesity, Class I, BMI 30-34.9 Obesity, unspecified Tobacco abuse Tobacco use disorder Marijuana use Cannabis abuse, unspecified [facility] Diagnosis Abscess of right breast- Primary Inflammatory disease of breast [facility] Diagnosis Paronychia of right thumb- Primary Onychia and paronychia of finger Abscess of right breast Inflammatory disease of breast [facility] Diagnosis Abscess of right breast- Primary Inflammatory disease of breast [facility]* Diagnosis Wound check, abscess- Primary Encounter for other specified aftercare Breast pain Mastodynia [facility] Additional Instructions Return for any worsening symptoms, soak your thumb multiple times daily in warm water.[facility] Work Phone: [facility] Diagnostic Procedure Only (Routine) - Pending Review Specialty Diagnoses / Procedures Referred By Quincy t Referred To Contact [facility] Diagnoses Encounter for screening mammogram for breast cancer Procedures SUSU SCREENING SCREENING MAMMOGRAPHY BI 2-VIEW BREAST INC CAD Mercy Torres MD [address] [place] [address] [facility] [address] [id number] Referral ID Status Reason Start Date Expiration Date Visits Requested Visits Authorized [id number] Pending Review Auto-Generat ed Referral 01/07/2022 02/06/2023 1 1 [facility] for referral (narrative)* Diagnostic Procedure Only (Routine) - Authorized Specialty Diagnoses / Procedures Referred By Conterasmo t Referred To Contact [facility] Diagnoses Encounter for screening mammogram for breast cancer Procedures SUSU SCREENING W RINA SCREENING DIGITAL BREAST TOMOSYNTHESIS BI SCREENING MAMMOGRAPHY BI 2-VIEW BREAST INC CAD Ester Gray MD [address] [id number] [facility] [address] [address] Referral ID Status Reason Start Date Expiration Date Visits Requested Visits Authorized [id number] Authorized Auto-Generat ed Referral 3 04/07/2024 1 1 [facility] for referral (narrative)* Diagnostic Procedure Only (Routine) - Closed Specialty Diagnoses / Procedures Referred By Conterasmo t Referred To Contact [facility] Diagnoses Encounter for screening mammogram for breast cancer Procedures SUSU SCREENING W RIAN SCREENING DIGITAL BREAST TOMOSYNTHESIS BI SCREENING MAMMOGRAPHY BI 2-VIEW BREAST INC CAD Ester Gray MD [address] [place] [address] [facility] [address] [phone] Referral ID Status Reason Start Date Expiration Date V isits Requested Visits Authorized [id number] Closed Auto-Generate d Referral 03/09/2023 04/07/2024 1 1 [facility] for referral (narrative)* Diagnostic Procedure Only (Routine) - New Request Specialty Diagnoses / Procedures Referred By Quincy t Referred To Contact [facility] Diagnoses Encounter for screening mammogram for malignant neoplasm of breast Procedures SUSU SCREENING W RINA SCREENING DIGITAL BREAST TOMOSYNTHESIS BI SCREENING MAMMOGRAPHY BI 2-VIEW BREAST INC CAD Qiana Mansfield MD [address] [place] [address] [facility] [address] [place] [address] Referral ID Status Reason Start Date Expiration Date Visits Requested Visits Authorized [id number] New Request Auto-Generat ed Referral 03/01/2025 1 1 [facility] for referral (narrative)No reason for referral information availableWMercy Health St[facility] Work Phone: [facility] for visit Narrative* Diagnostic Procedure Only (Routine) - Closed Specialty Diagnoses / Procedures Referred By Quincy gross Referred To Contact [facility] Diagnoses Encounter for screening mammogram for breast cancer Procedures SUSU SCREENING W RINA SCREENING DIGITAL BREAST TOMOSYNTHESIS BI SCREENING MAMMOGRAPHY BI 2-VIEW BREAST INC CAD Ester Gray MD [address] [place] [address] [facility] [address] [place] [address] Referral ID Status Reason Start Date Expiration Date V isits Requested Visits Authorized [id number] Closed Auto-Generate d Referral 03/09/2023 04/07/2024 1 1 [facility] Medications Administered Section Inactive Administered Medications - up to 3 most recent administrations Medication Order MAR Action Action Date Dose Rate Site bupivacaine (PF) 0.5 % (5 mg/mL) 2.5 mg injection 2.5 mg (0.5 mL), INTRA-ARTICULAR, ONCE, 1 dose, On Wed12/03/21 at 1430 Given 12/03/2021 2:21 PM EDT 2.5 mg Foot, Left dexAMETHasone sodium phosphate 2 mg injection (DECADRON) 2 mg, INTRA-ARTICULAR, ONCE, 1 dose, On Wed12/03/21 at 1430 Given 12/03/2021 2:22 PM EDT 2 mg Foot, Left triamcinolone acetonide 5 mg injection (KeNALog 10) 5 mg, INTRA-ARTICULAR, ONCE, 1 dose, On Wed12/03/21 at 1430 Given 12/03/2021 2:22 PM EDT 5 mg Foot, Left Health Concerns Infection Onset Date Last Indicated Resolved Time COVID-19 Rule-Out 03/16/2022 03/16/2022 Infection Onset Date Last Indicated Resolved Time COVID-19 Rule-Out 03/16/2022 03/16/2022 03/17/2022 2:39 AM EST COVID-19 Confirmed 03/16/2022 03/16/2022 Chief Complaint and Reason for Visit Chief Complaint SCREENING Chief Complaint Admit Date September 10, 2024 11:35 am Chief Complaint Admit Date September 10, 2024 11:35 am THUMB INJURY September 14, 2024 4:38a m Advance Directives No Advanced Directives Records Found Advance Directive Response Recorded Date/ Time Advance Directives No July 11, 015 3:09pm Living Will No May 25 12:49pm Power of Infantry Unit Leader No May 25, 2018 12:49pm Advance Directive Response Recorded Date/ Time Do you have a Healthcare Power of Infantry Unit Leader? No September 10, 2024 1:15pm Advance Directives No July 11, 015 4:09pm Advance Directive Response Recorded Date/ Time Do you have a Healthcare Power of Infantry Unit Leader? No September 10, 2024 1:15pm Do you have a Healthcare Power of Infantry Unit Leader? No September 14, 2024 4:39am Advance Directives No July 11 015 4:09pm Reason for Referral Specialty Diagnoses / Procedures Referred By Quincy gross Referred To Contact General Surgery Diagnoses Skin infection Procedures CONSULT TO GENERAL SURGERY OFFICE[facility]IENT [facility] 60 MINUTES Gisel Keller APRN.[employer] [address] [place] [address] Referral ID Status Reason Start Date Expiration Date Visits Requested Visits Authorized [id number] Authorized PCP Requested Referral 4 04/10/2025 1 1 Summary Purpose Family History No Family History Records FoundNo Family History Records Found Additional Source Comments Source Comments (unrecognize d section and content) In the event this informatio n is protected by the Federal Confidentiality of Alcohol and Drug Abuse Patient Records regulations: The Federal rules restrict any use of the information to criminally investigate or prosecute any alcohol or drug abuse patient.[facility] the event this information is protected by the Federal Confidentiality of Alcohol and Drug Abuse Patient Records regulations: The Federal rules restrict any use of the information to criminally investigate or prosecute any alcohol or drug abuse patient.[facility] the event this information is protected by the Federal Confidentiality of Alcohol and Drug Abuse Patient Records regulations: The Federal rules restrict any use of the information to criminally investigate or prosecute any alcohol or drug abuse patient.[facility] the event this information is protected by the Federal Confidentiality of Alcohol and Drug Abuse Patient Records regulations: The Federal rules restrict any use of the information to criminally investigate or prosecute any alcohol or drug abuse patient.[facility] the event this information is protected by the Federal Confidentiality of Alcohol and Drug Abuse Patient Records regulations: The Federal rules restrict any use of the information to criminally investigate or prosecute any alcohol or drug abuse patient.[facility] the event this information is protected by the Federal Confidentiality of Alcohol and Drug Abuse Patient Records regulations: The Federal rules restrict any use of the information to criminally investigate or prosecute any alcohol or drug abuse patient.[facility] the event this information is protected by the Federal Confidentiality of Alcohol and Drug Abuse Patient Records regulations: The Federal rules restrict any use of the information to criminally investigate or prosecute any alcohol or drug abuse patient.[facility] the event this information is protected by the Federal Confidentiality of Alcohol and Drug Abuse Patient Records regulations: The Federal rules restrict any use of the information to criminally investigate or prosecute any alcohol or drug abuse patient.[facility] the event this information is protected by the Federal Confidentiality of Alcohol and Drug Abuse Patient Records regulations: The Federal rules restrict any use of the information to criminally investigate or prosecute any alcohol or drug abuse patient.[facility] the event this information is protected by the Federal Confidentiality of Alcohol and Drug Abuse Patient Records regulations: The Federal rules restrict any use of the information to criminally investigate or prosecute any alcohol or drug abuse patient.[facility] Center[facility] the event this information is protected by the Federal Confidentiality of Alcohol and Drug Abuse Patient Records regulations: The Federal rules restrict any use of the information to criminally investigate or prosecute any alcohol or drug abuse patient.[facility] the event this information is protected by the Federal Confidentiality of Alcohol and Drug Abuse Patient Records regulations: The Federal rules restrict any use of the information to criminally investigate or prosecute any alcohol or drug abuse patient.[facility] Center[facility] the event this information is protected by the Federal Confidentiality of Alcohol and Drug Abuse Patient Records regulations: The Federal rules restrict any use of the information to criminally investigate or prosecute any alcohol or drug abuse patient.[facility] Center[facility] the event this information is protected by the Federal Confidentiality of Alcohol and Drug Abuse Patient Records regulations: The Federal rules restrict any use of the information to criminally investigate or prosecute any alcohol or drug abuse patient.[facility] Center[facility] the event this information is protected by the Federal Confidentiality of Alcohol and Drug Abuse Patient Records regulations: The Federal rules restrict any use of the information to criminally investigate or prosecute any alcohol or drug abuse patient.[facility] Center[facility] the event this information is protected by the Federal Confidentiality of Alcohol and Drug Abuse Patient Records regulations: The Federal rules restrict any use of the information to criminally investigate or prosecute any alcohol or drug abuse patient.[facility] Center[facility] the event this information is protected by the Federal Confidentiality of Alcohol and Drug Abuse Patient Records regulations: The Federal rules restrict any use of the information to criminally investigate or prosecute any alcohol or drug abuse patient.[facility] Center[facility] the event this information is protected by the Federal Confidentiality of Alcohol and Drug Abuse Patient Records regulations: The Federal rules restrict any use of the information to criminally investigate or prosecute any alcohol or drug abuse patient.[facility] Center[facility] the event this information is protected by the Federal Confidentiality of Alcohol and Drug Abuse Patient Records regulations: The Federal rules restrict any use of the information to criminally investigate or prosecute any alcohol or drug abuse patient.[facility] Center[facility] the event this information is protected by the Federal Confidentiality of Alcohol and Drug Abuse Patient Records regulations: The Federal rules restrict any use of the information to criminally investigate or prosecute any alcohol or drug abuse patient.[facility] Center[facility] the event this information is protected by the Federal Confidentiality of Alcohol and Drug Abuse Patient Records regulations: The Federal rules restrict any use of the information to criminally investigate or prosecute any alcohol or drug abuse patient.[facility] CenterIn the event this information is protected by the Federal Confidentiality of Alcohol and Drug Abuse Patient Records regulations: The Federal rules restrict any use of the information to criminally investigate or prosecute any alcohol or drug abuse patient.[facility] Center[facility] the event this information is protected by the Federal Confidentiality of Alcohol and Drug Abuse Patient Records regulations: The Federal rules restrict any use of the information to criminally investigate or prosecute any alcohol or drug abuse patient.[facility] CenterIn the event this information is protected by the Federal Confidentiality of Alcohol and Drug Abuse Patient Records regulations: The Federal rules restrict any use of the information to criminally investigate or prosecute any alcohol or drug abuse patient.[facility] CenterIn the event this information is protected by the Federal Confidentiality of Alcohol and Drug Abuse Patient Records regulations: The Federal rules restrict any use of the information to criminally investigate or prosecute any alcohol or drug abuse patient.[facility] Reason for Visit (unrecogniz ed section and content) Reason Comments Ear Pain (LT) ear pain rated 3 on pain scale x 4 days Reason Comments Results Reason Comments Established Patient Follow Up Pain Reason Comments Cough chills, sore throat, fever x 3 days, covid exposure Reason Comments Abscess L inner thigh, opene d on way here x 3 days Reason Comments Cough Dry cough, chest con gestion, bodyaches, headache, wheeze x 4 days Reason Comments Orders Reason Comments Derm Problem boil under left he st x 1 month Reason Comments Consult Left breast boil/abs cess ruptured-currently taking doxycycline Specialty Diagnoses / Procedures Referred By Contac t Referred To Contact General Surgery Diagnoses Skin infection Procedures CONSULT TO GENERAL SURGERY OFFICE/OUTPATIENT [facility] MDM 60 MINUTES Gisel Keller, JEFF.DOMESTIC MAID [address] [place] [address] Referral ID Status Reason Start Date Expiration Date V isits Requested Visits Authorized [id number] Closed PCP Requested Referral 04/10/2024 04/10/2025 1 1 Reason Comments Procedure Excision of skin cys t of left lower breast area Specialty Diagnoses / Procedures Referred By Contac t Referred To Contact [facility] Diagnoses HCAP Procedures HCAP [facility] [address] [place] [address] Phone: tel: [facility] [place] [address] Referral ID Status Reason Start Date Expiration Date Visits Requested Visits Authorized [id number] Authorized Financial Clearance Required - Self Pay Patient Cleared - Qualified HCAP/FA 07/17/2024 99 99 Reason Comments Right Thumb Drainage Reason Comments ER F/U [facility]-right thumb nail concerns- work excuse for today if possible. Physical May need to reschedu le this-patient aware Specialty Diagnoses / Procedures Referred By Contac t Referred To Contact [facility] DE[facility] Diagnoses Encounter to establish care Procedures OFFICE/OP CONSLTJ NEW/EST PT MOD MDM 40 MINUTES Self [facility] [address] Referral ID Status Reason Start Date Expiration Date Visits Requested Visits Authorized [id number] Authorized Financial Clearance Required - Self Pay Patient Cleared - Qualified HCAP/FA 07/24/2024 10/22/2024 99 99 Reason Comments Abscess Reason Onset Date Comments Results 09/14/2024 Reason Comments Follow Up Right thumb Breast Problem Right- patient wanti ng PCP to check area that had I&D Reason Comments Follow Up Reason Comments Derm Problem Previous cyst site o pened up, under right breast Specialty Diagnoses / Procedures Referred By Contac t Referred To Contact Internal Medicine / URGENT CARE CLINIC Diagnoses Previous cyst site opened up, R lower chest under breast Procedures URGENT CARE [facility] [address] [place] [address] Phone: tel: Referral ID Status Reason Start Date Expiration Date Visits Requested Visits Authorized [id number] New Request Financial Clearance Required - Self Pay 10/25/2024 01/23/2025 1 1 Care Teams (unrecognized sec tion and content) Senior Automation Engineer Relationship Specialty Start Date End Date Mercy Torres MD [address] [place] [address] PCP - General Family Practice 07/17/19 Senior Automation Engineer Relationship Specialty Start Date End Date Mercy Torres MD [address] [place] [address] PCP - General Family Practice 07/17/19 Senior Automation Engineer Relationship Specialty Start Date End Date Mercy Torres MD [address] [place] [address] PCP - General Family Practice 07/17/19 Senior Automation Engineer Relationship Specialty Start Date End Date Mercy Torres MD [address] [place] [address] PCP - General Family Medicine 07/17/19 Senior Automation Engineer Relationship Specialty Start Date End Date Mercy Torres MD [address] [place] [address] PCP - General Family Medicine 07/17/19 Senior Automation Engineer Relationship Specialty Start Date End Date Mercy Torres MD [address] [place] [address] PCP - General Family Medicine 07/17/19 Team Status: Active Member Role Status Dates Dr. Leonardo Grover MD Family Provider Active Dr. Leonardo Grover MD Primary Care Provider Active Team Status: Inactive Member Role Status Dates Dr. Leonardo Grover MD Primary Care Provider Active Dr. Krishna Hutchinson MD Attending Provider Active Senior Automation Engineer Relationship Specialty Start Date End Date Mercy Torres MD [address] [place] [address] PCP - General Family Medicine 07/17/19 Senior Automation Engineer Relationship Specialty Start Date End Date Mercy Torres MD [address] [place] [address] PCP - General Family Medicine 07/17/19 Senior Automation Engineer Relationship Specialty Start Date End Date Mercy Torres MD [address] [facility] [place] [address] PCP - General Family Medicine 07/17/19 Senior Automation Engineer Relationship Specialty Start Date End Date Mercy Torres MD [address] [facility] [place] [address] PCP - General Family Medicine 07/17/19 Senior Automation Engineer Relationship Specialty Start Date End Date Mercy Torres MD [address] [facility] [place] [address] PCP - General Family Medicine 07/17/19 Senior Automation Engineer Relationship Specialty Start Date End Date Mercy Torres MD [address] [facility] [place] [address] PCP - General Family Medicine 07/17/19 Senior Automation Engineer Relationship Specialty Start Date End Date Mercy Torres MD [address] [facility] [place] [address] PCP - General Family Medicine 07/17/19 Senior Automation Engineer Relationship Specialty Start Date End Date Mercy Torres MD [address] [facility] [place] [address] PCP - General Family Medicine 07/17/19 Omaira De Jesus APRN.CNP [address] [facility] [place] [address] [employer] [facility] Family [facility] 03/25/24 Senior Automation Engineer Relationship Specialty Start Date End Date Mercy Torres MD [address] [facility] [place] [address] PCP - General Family Medicine 07/17/19 Podlogar, ESEQUIEL CastanoN.DOMESTIC MAID [address] [facility] [place] [address] [employer] Family Medicine 03/25/24 Senior Automation Engineer Relationship Specialty Start Date End Date Mercy Torres MD [address] [facility] [place] [address] [id number] PCP - General Family Medicine 07/17/19 Podlogar, Omaira INSURANCE COUNSELOR.DOMESTIC MAID [address] [place] [address] Trolley [employer]er [facility] 03/25/24 Team Status: Active Member Role Status Dates Dr. Noah Torres MD Primary Care Provider Acti ve Team Status: Inactive Member Role Status Dates Dr. Noah Torres MD Primary Care Provider Acti ve Start: September 10, 2024 End: September 10, 2024 Dr. Esperanza Gu , Emergency Provider Active Start: September 10, 2024 End: September 10, 2024 Senior Automation Engineer Relationship Specialty Start Date End Date Mercy Torres MD [address] [facility] [place] [address] PCP - General Family Medicine 07/17/19 Podlogar, Omaira, INSURANCE COUNSELOR.DOMESTIC MAID [address] [place] [address] [facility] 03/25/24 Senior Automation Engineer Relationship Specialty Start Date End Date Mercy Torres MD [address] [place] [address] PCP - General Family Medicine 07/17/19 Podlogar, Omaira, INSURANCE COUNSELOR.DOMESTIC MAID [address] [facility] [place], [place] [address] [employer] [facility] Family Medicine 03/25/24 Senior Automation Engineer Relationship Specialty Start Date End Date Mercy Torres MD [address] [facility] [place], [place] [address] PCP - General Family Medicine 07/17/19 Podlogar, Omaira, INSURANCE COUNSELOR.DOMESTIC MAID [address] [facility] [place], [place] [address] [employer] [facility] 03/25/24 Team Status: Inactive Member Role Status Dates Dr. Noah Torres MD Primary Care Provider Acti ve Start: September 10, 2024 End: September 10, 2024 Dr. Esperanza Gu DO Attending Provider Active Start: September 10, 2024 End: September 10, 2024 Dr. Esperanza Gu DO Emergency Provider Active Start: September 10, 2024 End: September 10, 2024 Team Status: Inactive Member Role Status Dates Dr. Noah Torres MD Primary Care Provider Acti ve Start: September 14, 2024 End: September 14, 2024 Dr. Asad Paz DO Emergency Provider Active Start: September 14, 2024 End: September 14, 2024 Senior Automation Engineer Relationship Specialty Start Date End Date Mercy Torres MD [address] [facility] [place] [address] PCP - General Family Medicine 07/17/19 Podlogar, Omaira, INSURANCE COUNSELOR.DOMESTIC MAID [address] [facility], [place] [address] [facility] 03/25/24 Senior Automation Engineer Relationship Specialty Start Date End Date Mercy Torres MD [address] [facility], [place] [address] PCP - General Family Medicine 07/17/19 PodlogarOmaira APRN.DOMESTIC MAID [address] [place], [place] [id number] [facility] 03/25/24 Mare Ureña APRN.DOMESTIC MAID [address] [place], [place] [id number] [facility] 09/28/24 Senior Automation Engineer Relationship Specialty Start Date End Date Mercy Torres MD [address] [place], [place] [id number] PCP - General Family Medicine 07/17/19 PodlogarOmaira APRN.DOMESTIC MAID [address] [place], [place] [address] [facility] 03/25/24 Mare Ureña APRN.DOMESTIC MAID [address] [place], [place] [id number] [facility] 09/28/24 Goals (unrecognized section and content) Goals may be documented in a n alternate sectionGoals may be documented in an alternate sectionGoals may be documented in an alternate section INFORMATION SOURCE (unrecogn ized section and content) DATE CREATED AUTHOR 09/15/2024 [facility] DATE CREATED AUTHOR AUTHOR'S TIFFANIE MENDEZ 02/19/2025 [facility] FOR RECORDS PERTAINING TO PATIENTS WHO ARE OR HAVE BEEN ENROLLED IN A CHEMICAL DEPENDENCY/SUBSTANCEABUSE PROGRAM, SOME INFORMATION MAY BE OMITTED. This clinical summary was aggregated from multiple sources. Caution should be exercised in using it in the provision of clinical care. This summary normalizes information from multiple sources, and as a consequence, information in this document may materially change the coding, format and clinical context of patient data. In addition, data may be omitted in some cases. CLINICAL DECISIONS SHOULD BE BASED ON THE PRIMARY CLINICAL RECORDS. [facility] Center[facility]. provides no warranty or guarantee of the accuracy or completeness of information in this document.
[2025-03-31 14:22] VITALS: BP 121/86; PULSE 86; RESP 16; TEMP 36.6; O2SAT 99
== END 2025-03-31 14:23 | disposition home or self-care (01) ==
PROVIDERS: Emergency Provider Emergency Medicine; PCP Family Medicine; Visit Provider Emergency Medicine
DX: K08.89 Other specified disorders of teeth and supporting structures (principal); F17.210 Nicotine dependence, cigarettes, uncomplicated
CPT/HCPCS: 99282